=== PATIENT | male | born 1950 | race Caucasian/White ===

== ENCOUNTER 2017-11-02 09:07 | Day surgery (SDC) | payer OTHER ==
[2017-11-01 15:56] LABS: Absolute Monocytes 0.6 K/uL (0.1-1.3); Absolute Neutrophil 3.5 K/uL (1.8-8.0); Basophils % 1.7 % (0-1.3); Eosinophils % 6.1 % (0-4.4); Hematocrit 30.8 % (39.6-49.0); Lymphocytes % 18.5 % (15.3-44.8); MCH 27.9 pg (27.0-35.0); MCV 83.6 fL (80-100); MPV 7.8 fL (7.6-11.3); Monocytes % 10.8 % (3.3-12.3); RBC Red Blood Cell Count 3.68 M/uL (4.33-5.43)
[2017-11-01 16:23] LABS: Potassium 4.6 mmol/L (3.5-5.1)
[2017-11-02] MEDS ORDERED: NA CHLORIDE 0.9% 500 ML ONE (09:26)
[2017-11-02] MEDS ORDERED: CEFAZOLIN/SWI 1gm 1 GM/10 ML SYR ONE (09:27)
[2017-11-02] MEDS ORDERED: NS 0.9% VIAL 10 ML ONE (09:45)
[2017-11-02] MEDS ORDERED: LIDOCAINE 1% MPF 5 ML VIAL ONE ×2 (09:46→09:48)
[2017-11-02] MEDS ORDERED: HEPARIN 5000 UNIT/ML 1 ML VIAL ONE (09:46)
[2017-11-02] MEDS ORDERED: NA CHLORIDE 0.9% 100 ML IV ONE (09:46)
[2017-11-02] MEDS ORDERED: FENTANYL CITR 100 MCG/2 ML ONE (09:48)
[2017-11-02] MEDS ORDERED: PROPOFOL 200 MG/20 ML VIAL IV ONE (09:48)
[2017-11-02] MEDS ORDERED: MIDAZOLAM HCL 2 MG/2 ML INJ ONE (09:48)
[2017-11-02] MEDS ORDERED: LABETALOL 20 MG/4ML SYRINGE IV ONE (10:12)
[2017-11-02] MEDS ORDERED: ONDANSETRON HCL 40 MG/20 ML VIAL ONE (10:43)
--- NOTE | 2017-11-02 11:39 | RAD REPORT ---
EXAM DESCRIPTION: RAD - Fluoroscopy <1 Hour - 11/02/2017 11:29 am CLINICAL HISTORY: Right-side Tessio catheter placement COMPARISON: None. FINDINGS: Fluoroscopic assisted placement of a right-sided Tessio catheter performed. There were 3 s pot images submitted. Fluoro time was 0.1 minutes. C-arm view show no suspicious or unexpected findin g. IMPRESSION: Fluoroscopic assisted right-side Tessio catheter placement as detailed.
--- NOTE | 2017-11-02 11:40 | RAD REPORT ---
EXAM DESCRIPTION: RAD - Chest Single View - 11/02/2017 11:30 am CLINICAL HISTORY: Right-side Tessio catheter placement COMPARISON: October 29 TECHNIQUE: AP portable chest image was obtained 1117 hours . FINDINGS: Right-sided Tessio catheter placement showing short arm of the catheter in the proximal SV C in the long arm of the catheter in the mid SVC. No pneumothorax. No edema, infiltrate or acute lung parenchymal process. Left base assessment is limi carmelo. Heart size is normal. No pleural fluid identified. Delete select IMPRESSION: Right-sided Tessio catheter placement in good position. No pneumothorax.
[2017-11-02] MEDS ORDERED: HYDROCODONE/APAP 7.5/325 MG TAB ONE (12:28)
[2017-11-02 14:08] VITALS: BP 177/85; TEMP 98.2; O2SAT 98
--- NOTE | 2017-11-02 19:03 | OP ---
Date of Procedure: 11/02/2017 Surgeon: Toro Gutierrez MD Preoperative Diagnosis: Acute renal failure. Postoperative Diagnosis: Acute renal failure. Procedure: Insertion of right internal jugular Tesio catheter and interpretation of intraoperative f luoroscopy. Estimated Blood Loss: Minimal. Specimen: None. Findings: Normal anatomy. Anesthesia: MAC. Complications: None. Disposition: The patient tolerated the procedure in stable condition and taken to Recovery in good g eneral condition. Procedure In Detail: The patient was brought to the OR and placed in supine position. MAC anesthesi a was begun. The patient was prepped and draped in the usual sterile fashion. Lidocaine 1% was infi ltrated locally. An 18-gauge needle was used to access the right IJ vein. Guidewire was passed. Po sition was confirmed with fluoroscopy. A counterincision was made on the right anterior chest. Tunn eling device was used to tunnel the catheter between the 2 wounds. Seldinger technique used. Tip of the catheter placed in the mid SVC under fluoroscopy. Catheter was flushed with heparin and packed with heparin with good blood flow. Then, 3-0 chromic used to reapproximate the subcutaneous tissue a nd then 3-0 nylon used to secure the tube to the chest wall. Sterile dressing was applied. The nickie ent was awakened and taken to Recovery in good general condition. Chest x-ray has been ordered. Discharge Note: If the chest x-ray is okay, the patient will be discharged to home. Disposition: Home. Condition: Stable. Discharge Instructions: Resume home medications and diet. Activity as tolerated. Follow up with he modialysis. Tylenol No.3 one tablet p.o. q.4 p.r.n. pain. Follow up in my office when the patient r tona to have the catheter removed once he has a permanent access for dialysis. /MODL Voice ID: [id number] Report ID: [id number]
== END 2017-11-02 13:31 | disposition home or self-care (01) ==
LOC: OR 09:07
PROVIDERS: ATTEND Surgery
PROC: 0JH63XZ Insertion of Tunneled Vascular Access Device into Chest Subcutaneous Tissue and Fascia, Percutaneous Approach (ICD-10-PCS; principal; 2017-11-02 10:45)
DX: I12.0 Hypertensive chronic kidney disease with stage 5 chronic kidney disease or end stage renal disease (principal); N18.5 Chronic kidney disease, stage 5; N17.9 Acute kidney failure, unspecified; E11.22 Type 2 diabetes mellitus with diabetic chronic kidney disease; D64.9 Anemia, unspecified; Z99.2 Dependence on renal dialysis; Z88.6 Allergy status to analgesic agent; Z79.4 Long term (current) use of insulin; Z88.3 Allergy status to other anti-infective agents; Z88.0 Allergy status to penicillin
CPT/HCPCS: 00532; 36415; 36558; 71045; 77001; 80048; 82962 ×2; 85025; C1752; J0690; J1644; J2250; J2405; J3010; 76000

== ENCOUNTER 2019-02-13 17:46 | Emergency (ER) | payer OTHER ==
--- NOTE | 2019-02-13 19:42 | EDPHYS ---
Physician Documentation [facility] Name: Eyal Reynaga Age: 68 yrs Sex: Male : 1950 Arrival Date: 02/13/2019 Time: 17:51 Bed 14 Private MD: ED Physician Lupillo Gomes HPI: 02/13 19:30 This 68 yrs old Male presents to ER via Ambulatory with complaints of Abscess.wa 19:30 The patient presents with cellulitis of the chin, the patient presents with a swollen wa area of the chin. Description: The affected area is moderate sized, localized, erythematous, swollen. Onset: The symptoms/episode began/occurred 3 day(s) ago. Possible cause(s): unknown. Associated signs and symptoms: The patient has no apparent associated signs or symptoms. Modifying factors: the symptoms are alleviated by nothing, the symptoms are aggravated by nothing. Severity of symptoms: At their worst the symptoms were moderate, in the emergency department the symptoms are unchanged. The patient has not experienced similar symptoms in the past. The patient has not recently seen a physician. states saw what appeared to be a pimple on the chin. squeezed and got stuff out but now swollen and pain ful. Historical: - Allergies: 18:02 PENICILLINS; aj1 18:02 Morphine; aj1 18:02 Clindamycin; aj1 - Home Meds: 18:02 omeprazole 40 mg Oral cpDR 1 cap once daily [Active]; levothyroxine 112 mcg tab 1 tab aj1 once daily [Active]; calcium acetate 667 mg oral tab 2 tabs 3 times per day [Active]; hydralazine 25 mg Oral tab 1 tab twice daily [Active]; metoprolol tartrate 25 mg Oral tab 1 tab 2 times per day [Active]; bumetanide 2 mg Oral tab 1 tab 2 times per day [Active]; metolazone 5 mg oral tab 1 tab twice daily [Active]; metronidazole 375 mg Oral cap 1 cap three times per day [Active]; loperamide 2 mg Oral cap 2 caps [Active]; aspirin 81 mg Oral chew 1 tab once daily [Active]; Vitamin D3 2,000 unit oral tab daily [Active]; Novolog sliding scale Sub-Q soln [Active]; Levemir sliding scale subcutaneous soln [Active]; - PMHx: 18:02 Diabetes - NIDDM; Dialysis; Hypertension; Hypothyroidism; neuropathy; walks with walker;aj1 - Immunization history:: Flu vaccine is up to date. - Social history:: Smoking status: Patient/guardian denies using tobacco. - Ebola Screening: : Patient denies travel to an Ebola-affected area in the 21 days before illness onset. - Family history:: not pertinent. - Hospitalizations: : No recent hospitalization is reported. ROS: 19:32 Constitutional: Negative for fever, chills, and weight loss, Eyes: Negative for injury, wa pain, redness, and discharge, Neck: Negative for injury, pain, and swelling, Cardiovascular: Negative for chest pain, palpitations, and edema, Respiratory: Negative for shortness of breath, cough, wheezing, and pleuritic chest pain, Abdomen/GI: Negative for abdominal pain, nausea, vomiting, diarrhea, and constipation, Back: Negative for injury and pain, : Negative for injury, bleeding, discharge, and swelling, MS/Extremity: Negative for injury and deformity, Neuro: Negative for headache, weakness, numbness, tingling, and seizure, Psych: Negative for depression, anxiety, suicide ideation, homicidal ideation, and hallucinations. 19:32 ENT: Positive for Teeth pain 19:32 Skin: Positive for cellulitis, swelling, of the chin. 19:32 All other systems are negative. Exam: 19:35 Constitutional: This is a well developed, well nourished patient who is awake, alert, wa and in no acute distress. Head/Face: Normocephalic, atraumatic. Eyes: Pupils equal round and reactive to light, extra-ocular motions intact. Lids and lashes normal. Conjunctiva and sclera are non-icteric and not injected. Cornea within normal limits. Periorbital areas with no swelling, redness, or edema. Neck: Trachea midline, no thyromegaly or masses palpated, and no cervical lymphadenopathy. Supple, full range of motion without nuchal rigidity, or vertebral point tenderness. No Meningismus. Chest/axilla: Normal chest wall appearance and motion. Nontender with no deformity. No lesions are appreciated. Cardiovascular: Regular rate and rhythm with a normal S1 and S2. No gallops, murmurs, or rubs. Normal PMI, no JVD. No pulse deficits. Respiratory: Lungs have equal breath sounds bilaterally, clear to auscultation and percussion. No rales, rhonchi or wheezes noted. No increased work of breathing, no retractions or nasal flaring. Abdomen/GI: Soft, non-tender, with normal bowel sounds. No distension or tympany. No guarding or rebound. No evidence of tenderness throughout. Back: No spinal tenderness. No costovertebral tenderness. Full range of motion. MS/ Extremity: Pulses equal, no cyanosis. Neurovascular intact. Full, normal range of motion. Neuro: Awake and alert, GCS 15, oriented to person, place, time, and situation. Cranial nerves II-XII grossly intact. Motor strength 5/5 in all extremities. Sensory grossly intact. Cerebellar exam normal. Normal gait. Psych: Awake, alert, with orientation to person, place and time. Behavior, mood, and affect are within normal limits. 19:35 ENT: Dental exam: poor dentition. no abscess. diffuse dental caries. 19:35 Skin: cellulitis, that is moderate, on the chin. Vital Signs: 18:02 BP 178 / 84; Pulse 100; Resp 18; Temp 98.4; Pulse Ox 99% on R/A; Weight 102.06 kg (R); aj1 Height 6 ft. 1 in. (185.42 cm) (R); 19:26 BP 185 / 105; Pulse 96; Resp 19; Pulse Ox 96% ; ea 19:30 BP 180 / 87; Pulse 97; Resp 19; Pulse Ox 97% on R/A; ea 18:02 Body Mass Index 29.68 (102.06 kg, 185.42 cm) aj MDM: 19:19 Patient medically screened. ks 19:37 Differential diagnosis: abscess, cellulitis, dental pain. caries. Data reviewed: vital ks signs, nurses notes. Administered Medications: 19:59 Drug: [place] 5 mg-325 mg 1 tabs Route: PO; ea 20:01 Follow up: Response: Medication administered at discharge. Disposition: 02/13/19 19:41 Discharged to Home. Impression: facial cellulitis, dental pain, dental caries. - Condition is Stable. - Discharge Instructions: Cellulitis, Adult, [id number], Dental Caries, [id number]. - Prescriptions for Doxycycline Hyclate 100 mg Oral Tablet - take 1 tablet by ORAL route every 12 hours for 7 days; 14 tablet. - Medication Reconciliation Form, Thank You Letter, Antibiotic Education, Prescription Opioid Use form. - Follow up: Private Physician; When: 1 - 2 days. - Problem is new. - Symptoms are unchanged. - Notes: follow up with your primary docotr and your dentist as discussed Signatures: Barb Weeks RN RN aj1 Samantha Leo RN RN ea Lupillo Gomes MD MD wa Corrections: (The following items were deleted from the chart) 20:05 19:41 02/13/2019 19:41 Discharged to Home. Impression: facial cellulitis; dental pain; ea dental caries. Condition is Stable. Forms are Medication Reconciliation Form, Thank You Letter, Antibiotic Education, Prescription Opioid Use. Follow up: Private Physician; When: 1 - 2 days. Problem is new. Symptoms are unchanged. wa
--- NOTE | 2019-02-13 19:42 | ER ---
Nurse's Notes [facility] Name: Eyal Reynaga Age: 68 yrs Sex: Male : 1950 Arrival Date: 02/13/2019 Time: 17:51 Bed 14 Private MD: Diagnosis: facial cellulitis;dental pain;dental caries Presentation: 02/13 17:56 Presenting complaint: Patient states: "I have a problem with my teeth. I have bad teeth aj1 and I think one of them might be infected, I have all this swelling in my neck and now its red, and I have this spot on my chin that pus has come out of" Denies fever. Transition of care: patient was not received from another setting of care. Onset of symptoms was February 13, 2019. Risk Assessment: Do you want to hurt yourself or someone else? Patient reports no desire to harm self or others. Initial Sepsis Screen: Does the patient meet any 2 criteria? HR > 90 bpm. No. Patient's initial sepsis screen is negative. Does the patient have a suspected source of infection? Yes: Skin breakdown/wound. Care prior to arrival: None. 17:56 Method Of Arrival: Ambulatory aj1 17:56 Acuity: JUANITA 3 aj1 Triage Assessment: 18:02 General: Appears in no apparent distress. uncomfortable, Behavior is calm, cooperative, aj1 appropriate for age. Pain: Complains of pain in neck. Neuro: Level of Consciousness is awake, alert, obeys commands. Cardiovascular: Patient's skin is warm and dry. Respiratory: Airway is patent Respiratory effort is even, unlabored, Respiratory pattern is regular, symmetrical. Historical: - Allergies: 18:02 PENICILLINS; aj1 18:02 Morphine; aj1 18:02 Clindamycin; aj1 - Home Meds: 18:02 omeprazole 40 mg Oral cpDR 1 cap once daily [Active]; levothyroxine 112 mcg tab 1 tab aj1 once daily [Active]; calcium acetate 667 mg oral tab 2 tabs 3 times per day [Active]; hydralazine 25 mg Oral tab 1 tab twice daily [Active]; metoprolol tartrate 25 mg Oral tab 1 tab 2 times per day [Active]; bumetanide 2 mg Oral tab 1 tab 2 times per day [Active]; metolazone 5 mg oral tab 1 tab twice daily [Active]; metronidazole 375 mg Oral cap 1 cap three times per day [Active]; loperamide 2 mg Oral cap 2 caps [Active]; aspirin 81 mg Oral chew 1 tab once daily [Active]; Vitamin D3 2,000 unit oral tab daily [Active]; Novolog sliding scale Sub-Q soln [Active]; Levemir sliding scale subcutaneous soln [Active]; - PMHx: 18:02 Diabetes - NIDDM; Dialysis; Hypertension; Hypothyroidism; neuropathy; walks with walker;aj1 - Immunization history:: Flu vaccine is up to date. - Social history:: Smoking status: Patient/guardian denies using tobacco. - Ebola Screening: : Patient denies travel to an Ebola-affected area in the 21 days before illness onset. - Family history:: not pertinent. - Hospitalizations: : No recent hospitalization is reported. Screenin:10 Abuse screen: Denies threats or abuse. Nutritional screening: No deficits noted. ea Tuberculosis screening: No symptoms or risk factors identified. Fall Risk None identified. Assessment: 19:10 General: Appears in no apparent distress. Behavior is calm, cooperative, appropriate ea for age. Pain: Complains of pain in chin and neck. Neuro: Level of Consciousness is awake, alert, obeys commands, Oriented to person, place, time, situation. Cardiovascular: Patient's skin is warm and dry. Respiratory: Airway is patent Respiratory effort is even, unlabored, Respiratory pattern is regular, symmetrical. Derm: abrasion to chin. 20:01 Reassessment: Patient and/or family updated on plan of care and expected duration. Pain ea level reassessed. Patient is alert, oriented x 3, equal unlabored respirations, skin warm/dry/pink. Discharge instruction given to patient, verbalized the understanding of instruction. Pt left ED ambulatory accompanied by family member. Vital Signs: 18:02 BP 178 / 84; Pulse 100; Resp 18; Temp 98.4; Pulse Ox 99% on R/A; Weight 102.06 kg (R); aj1 Height 6 ft. 1 in. (185.42 cm) (R); 19:26 BP 185 / 105; Pulse 96; Resp 19; Pulse Ox 96% ; ea 19:30 BP 180 / 87; Pulse 97; Resp 19; Pulse Ox 97% on R/A; ea 18:02 Body Mass Index 29.68 (102.06 kg, 185.42 cm) aj1 ED Course: 17:51 Patient arrived in ED. mr 17:57 Triage completed. aj1 18:02 Arm band placed on Patient placed in waiting room, Patient notified of wait time. aj1 19:00 Patient has correct armband on for positive identification. Bed in low position. Call ea light in reach. Adult w/ patient. 19:19 Lupillo Gomes MD is Attending Physician. wa 19:42 Samantha eLo RN is Primary Nurse. ea 20:04 No provider procedures requiring assistance completed. Patient did not have IV access ea during this emergency room visit. Administered Medications: 19:59 Drug: [place] 5 mg-325 mg 1 tabs Route: PO; ea 20:01 Follow up: Response: Medication administered at discharge. ea Outcome: 19:41 Discharge ordered by . wa 20:04 Discharged to home ambulatory, with family. ea 20:04 Condition: stable 20:04 Discharge instructions given to patient, Instructed on discharge instructions, follow up and referral plans. medication usage, Demonstrated understanding of instructions, follow-up care, medications, Prescriptions given X 2. 20:05 Patient left the ED. ea Signatures: Barb Weeks RN RN [facility][1] Domitila Sandhu mr Samantha Leo, Lupillo Corral RN, ea, MD MD wa Corrections: (The following items were deleted from the chart) 18:03 18:02 Arm band placed on Patient placed in an exam room, aj1 aj
[2019-02-13] MEDS ORDERED: HYDROCODONE/APAP 5/325 MG TAB ONE (19:55)
[2019-02-13 21:21] VITALS: TEMP 98.4
[2019-02-13 21:23] VITALS: BP 180/87; O2SAT 97
--- OUTSIDE RECORDS SUMMARY | 2019-02-19 21:48 | XMS REPORT ---
:1950 [facility] Address [address] [place] [address] Dr. Ceballos [address] [place] [id number] Care Team Providers Name Role Phone Unavailable Unavailable Unavailable Problems This patient has no known problems. Allergies, Adverse Reactions, Alerts This patient has no known allergies or adverse reactions. Medications This patient has no known medications. Encounters Start End Encounter Admission Attending Care Care Encounter Date/Time Date/Time Type Type Clinicians Facility Department ID 2019-02-17 Outpatient [facility] [id number] 13:19:48 2019-01-17 2019-01-17 Outpatient [facility] [id number] 09:56:00 09:56:00 2018-08-09 2018-08-09 Outpatient [facility] [id number] 09:28:00 09:28:00 2018-07-06 2018-07-06 Outpatient [facility] [id number] 11:53:00 11:53:00 2018-06-28 2018-06-28 Outpatient [facility] [id number] 10:22:00 10:22:00
== END 2019-02-13 20:05 | disposition home or self-care (01) ==
LOC: ER 17:46
DX: L03.211 Cellulitis of face (principal); K02.9 Dental caries, unspecified; I10 Essential (primary) hypertension; E11.9 Type 2 diabetes mellitus without complications; E03.9 Hypothyroidism, unspecified; Z79.82 Long term (current) use of aspirin; Z79.4 Long term (current) use of insulin; Z99.2 Dependence on renal dialysis; Z88.0 Allergy status to penicillin; Z88.3 Allergy status to other anti-infective agents; Z88.5 Allergy status to narcotic agent
CPT/HCPCS: 99283

== ENCOUNTER 2019-06-15 11:02 | Inpatient (IN) | payer OTHER ==
--- OUTSIDE RECORDS SUMMARY | 2019-06-15 11:04 | XMS REPORT ---
:1950 [facility] [address] [place] [address] Dr. Ceballos [address] [place] [id number] Care Team Providers Name Role Phone Unavailable Unavailable Unavailable Problems This patient has no known problems. Allergies, Adverse Reactions, Alerts This patient has no known allergies or adverse reactions. Medications This patient has no known medications. Encounters Start End Encounter Admission Attending Care Care Encounter Date/Time Date/Time Type Type Clinicians Facility Department ID 2019-04-10 Outpatient [facility] [id number] 08:34:11 2019-03-21 Outpatient [facility] [id number] 11:42:29 2019-02-17 Outpatient [facility] [id number] 13:19:48 2019-03-31 2019-03-31 Outpatient [facility] [id number] 16:50:00 16:50:00 2019-03-31 2019-03-31 Inpatient E [facility] [id number] 19:21:00 14:15:00 2019-01-17 2019-01-17 Outpatient [facility] [id number] 09:56:00 09:56:00 2018-08-09 2018-08-09 Outpatient [facility] [id number] 09:28:00 09:28:00 2018-07-06 2018-07-06 Outpatient [facility] [id number] 11:53:00 11:53:00 2018-06-28 2018-06-28 Outpatient [facility] [id number] 10:22:00 10:22:00
--- NOTE | 2019-06-15 11:49 | RAD REPORT ---
EXAM DESCRIPTION: RAD - Chest Single View - 06/15/2019 11:36 am CLINICAL HISTORY: sob, ams COMPARISON: Chest Single View dated 11/02/2017 TECHNIQUE: AP portable chest image was obtained 06/15/2019 11:36 am . FINDINGS: Lung volumes are low compared to prior imaging. Large bilateral pleural effusions are pres ent with lung base atelectasis. Central vasculature is prominent. Interstitial markings are similar t o slightly worse than comparison. Right-sided double-lumen catheter has been removed since the prior study. Heart and vasculature are normal. No measurable pleural effusion and no pneumothorax. No acute bony abnormality seen. No acute aortic findings suspected. IMPRESSION: Large bilateral pleural effusions with lung base atelectasis. Heart size is normal but there is vascular engorgement. CHF/ volume overload suspected.
[2019-06-15 12:07] LABS: Protime INR 1.19
[2019-06-15 12:08] LABS: Absolute Lymphocytes (CBC) 0.7 K/uL (0.7-4.9); Basophils % 1.3 % (0-1.3); Hematocrit 26.2 % (39.6-49.0); Lymphocytes % 14.5 % (15.3-44.8); MPV 7.8 fL (7.6-11.3); RBC Red Blood Cell Count 3.04 M/uL (4.33-5.43)
[2019-06-15 12:31] LABS: ALT/SGPT 13 U/L (12-78); AST/SGOT 12 U/L (15-37); Albumin 2.1 g/dL (3.4-5.0); Alkaline Phosphatase 69 U/L (45-117); BUN Blood Urea Nitrogen 35 mg/dL (7-18); Bicarbonate 31 mmol/L (21-32); Bilirubin Direct < 0.1 mg/dL (0-0.2); Bilirubin Total 0.3 mg/dL (0.2-1.0); Glucose Level 108 mg/dL (74-106); Magnesium 2.3 mg/dL (1.8-2.4); NT PRO-BNP 16416 pg/mL (<125); Potassium 3.9 mmol/L (3.5-5.1); Protein, Total 7.2 g/dL (6.4-8.2); Sodium Level 140 mmol/L (136-145); Troponin (Emerg Dept Use Only) < 0.02 ng/mL (0.0-0.045)
[2019-06-15 13:12] LABS: Arterial Blood Carboxyhemoglob 1.8 % (0-1.5); Blood Gas Oxyhemoglobin 85.3 % (94-97); Blood O2 Saturation 87.6 % (92-98.5)
--- NOTE | 2019-06-15 13:39 | EDPHYS ---
Physician Documentation [facility] Name: Eyal Reynaga Age: 68 yrs Sex: Male : 1950 Arrival Date: 06/15/2019 Time: 11:07 Bed 18 Private MD: ED Physician Nik Lau HPI: 06/14 11:20 This 68 yrs old Male presents to ER via EMS with complaints of SOB, AMS. jmm 11:20 The patient has shortness of breath at rest. Onset: The symptoms/episode began/occurred jmm yesterday. Duration: The symptoms are continuous. The patient's shortness of breath is aggravated by nothing, is alleviated by nothing. This is a 68 year old male with a history of DM, ESRD, HTN, that presents to the ED with complaints of shortness of breath, hallucinations beginning yesterday according to the . Patient states symptoms have improved. Patient recently discharged from a rehab facility with similar episodes. Patient discharged without home O2. . Historical: - Allergies: 12:13 Clindamycin; ca1 12:13 Morphine; ca1 12:13 PENICILLINS; ca1 - Home Meds: 12:13 carvedilol 25 mg oral tab 1 tab 2 times per day [Active]; Dialyvite 800 Plus D 800 mcg- ca1 2,000 unit oral chew [Active]; 13:06 megestrol 400 mg/10 mL (40 mg/mL) Oral susp 10 mL once daily [Active]; Virtussin AC ca1 10-100 mg/5 mL oral liqd 5 mL every 6 hours [Active]; loperamide 2 mg Oral cap 1 caps every 4 hours [Active]; calcium acetate 667 mg Oral tab 3 tabs 3 times per day [Active]; loratadine 10 mg oral tab 1 tab once daily [Active]; pantoprazole 40 mg oral TbEC 1 tab once daily [Active]; docusate sodium 100 mg Oral cap 1 cap 2 times per day [Active]; aspirin 81 mg Oral chew 1 tab once daily [Active]; levothyroxine 112 mcg tab 1 tab once daily [Active]; tramadol 50 mg Oral tab 1 tab twice a day [Active]; losartan 50 mg oral tab 1 tab 2 times per day [Active]; hydrochlorothiazide 25 mg Oral tab 1 tab once daily [Active]; sertraline 50 mg oral tab 1 tab once daily [Active]; nifedipine 60 mg Oral TbER 1 tab twice a day [Active]; Levemir sliding scale subcutaneous soln [Active]; Novolin R Sub-Q [Active]; - PMHx: 12:13 Diabetes - NIDDM; Dialysis; Hypertension; Hypothyroidism; neuropathy; walks with walker;ca1 - Immunization history:: Adult Immunizations up to date, Pneumococcal vaccine is up to date, Flu vaccine is up to date. - Social history:: Smoking status: Patient denies any tobacco usage or history of. ROS: 11:20 Constitutional: Negative for fever, chills, and weight loss, Cardiovascular: Negative jmm for chest pain, palpitations, and edema. 11:20 Respiratory: Positive for shortness of breath. 11:20 Neuro: Positive for altered mental status. 11:20 All other systems are negative. Exam: 11:20 Constitutional: This is a well developed, well nourished patient who is awake, alert, jmm and in no acute distress. Head/Face: atraumatic. Eyes: EOMI, no conjunctival erythema appreciated ENT: Moist Mucus Membranes Neck: Trachea midline, Supple Chest/axilla: Normal chest wall appearance and motion. Cardiovascular: Regular rate and rhythm. No edema appreciated 11:20 Abdomen/GI: Non distended, soft 11:20 Back: Normal ROM Skin: General appearance color normal MS/ Extremity: Moves all extremities, no obvious deformities appreciated, no edema noted to the lower extremities Neuro: Awake and alert, normal gait Psych: Behavior is normal, Mood is normal, Patient is cooperative and pleasant 11:20 Respiratory: mild respiratory distress is noted, Respirations: labored breathing, that is mild, Breath sounds: are clear throughout. Vital Signs: 11:16 BP 141 / 68; Pulse 67; Resp 14 S; Temp 97.1(TE); Pulse Ox 93% on R/A; Weight 99.79 kg ca1 (R); Height 6 ft. 1 in. (185.42 cm) (R); Pain 0/10; 12:13 BP 133 / 55; Pulse 81; Resp 16 S; Pulse Ox 91% on R/A; ca1 13:27 BP 139 / 79; Pulse 66; Resp 21 S; Pulse Ox 97% on 2 lpm NC; ca1 14:11 BP 130 / 66; Pulse 65; Resp 14 S; Pulse Ox 97% on 2 lpm NC; ca1 11:16 Body Mass Index 29.03 (99.79 kg, 185.42 cm) ca1 MDM: 11:34 Patient medically screened. [facility] 13:35 Data reviewed: vital signs, nurses notes. Counseling: I had a detailed discussion with nataliya the patient and/or guardian regarding: the historical points, exam findings, and any diagnostic results supporting the discharge/admit diagnosis, lab results, radiology results, the need for outpatient follow up, to return to the emergency department if symptoms worsen or persist or if there are any questions or concerns that arise at home. ED course: I discussed the patient with Dr. Salguero whom advises to admit for dialysis. I discussed the patient with Dr. Oneil whom accepted admission. . 06/14 11:20 Order name: Basic Metabolic Panel; Complete Time: 12:45 [facility] 06/14 11:20 Order name: CBC with Diff; Complete Time: 12:45 [facility] 06/14 11:20 Order name: LFT's; Complete Time: 12:45 [facility] 06/14 11:20 Order name: Magnesium; Complete Time: 12:45 [facility] 06/14 11:20 Order name: NT PRO-BNP; Complete Time: 12:45 [facility] 06/14 11:20 Order name: PT-INR; Complete Time: 12:45 [facility] 06/14 11:20 Order name: Troponin (emerg Dept Use Only); Complete Time: 12:45 [facility] 06/14 11:20 Order name: XRAY Chest (1 view); Complete Time: 12:02 [facility] 06/14 11:44 Order name: ABG; Complete Time: 13:21 [facility] 06/14 13:25 Order name: CT Head Brain wo Cont; Complete Time: 14:28 [facility] 06/14 13:25 Order name: Procalcitonin; Complete Time: 14:28 [facility] 06/14 13:25 Order name: Lactate; Complete Time: 14:28 [facility] 06/14 13:27 Order name: Urine Culture [facility] 06/14 14:14 Order name: Urine Dipstick--Ancillary (enter results) em1 06/14 11:20 Order name: EKG; Complete Time: 11:21 [facility] 06/14 11:20 Order name: Cardiac monitoring; Complete Time: 12:21 [facility] 06/14 11:20 Order name: EKG - Nurse/Tech; Complete Time: 12:22 [facility] 06/14 11:20 Order name: IV Saline Lock; Complete Time: 12:22 [facility] 06/14 11:20 Order name: Labs collected and sent; Complete Time: 12:22 [facility] 06/14 11:20 Order name: O2 Per Protocol; Complete Time: 12:22 [facility] 06/14 11:20 Order name: O2 Sat Monitoring; Complete Time: 12:22 [facility] 06/14 13:26 Order name: Urine Dipstick-Ancillary (obtain specimen); Complete Time: 13:58 [facility] Administered Medications: No medications were administered Disposition: 17:17 Co-signature as Attending Physician, Nik Lau MD I agree with the assessment and kdr plan of care. Disposition: 06/15/19 13:38 Hospitalization ordered by Sherif Oneil for Observation. Preliminary diagnosis are Hypoxia, Volume Overload. - Bed requested for Telemetry/MedSurg (observation). - Status is Observation. ca1 - Condition is Stable. - Problem is new. - Symptoms have improved. Signatures: Dispatcher [employer] EDMS Nik Lau MD MD kdr Ranulfo Rubio PA PA jmm Martinez, Eric em1 Ciara Samayoa RN RN ca1 Corrections: (The following items were deleted from the chart) 14:13 13:38 Hospitalization Ordered by Sherif Oneil DO for Observation. Preliminary em1 diagnosis is Hypoxia; Volume Overload. Bed requested for Telemetry/MedSurg (observation). Status is Observation. Condition is Stable. Problem is new. Symptoms have improved. [facility] 14:50 14:13 06/15/2019 13:38 Hospitalization Ordered by Sherif Oneil DO for Observation. ca1 Preliminary diagnosis is Hypoxia; Volume Overload. Bed requested for Telemetry/MedSurg (observation). Status is Observation. Condition is Stable. Problem is new. Symptoms have improved. em1 16:30 16:27 This 68 yrs old Male presents to ER via EMS with complaints of SOB, jmm AMS. jmm
--- NOTE | 2019-06-15 13:39 | ER ---
Nurse's Notes [facility] Name: Eyal Reynaga Age: 68 yrs Sex: Male : 1950 Arrival Date: 06/15/2019 Time: 11:07 Bed 18 Private MD: Diagnosis: Hypoxia;Volume Overload Presentation: 06/14 11:16 Chief complaint: EMS states: SOB and AMS since yesterday. states, "he said he is ca1 seeing squirrels in the ceiling fan". When we got there, pt is Ox4 and complains of feeling tired and lethargic. SPO2 at 89% RA. He has O2 set up but hasn't used it yet. Pt is on dialysis at home with schedule Jay Carbone Hx of MRSA on back. Coronavirus screen: The patient has NOT traveled to a country currently being monitored by the [facility] within the last 14 days. The patient has NOT had contact with any known and/or suspected case of coronavirus. Ebola Screen: Patient negative for fever greater than or equal to 101.5 degrees Fahrenheit, and additional compatible Ebola Virus Disease symptoms Patient denies exposure to infectious person. Patient denies travel to an Ebola-affected area in the 21 days before illness onset. No symptoms or risks identified at this time. Initial Sepsis Screen: Does the patient meet any 2 criteria? No. Patient's initial sepsis screen is negative. Does the patient have a suspected source of infection? No. Patient's initial sepsis screen is negative. Risk Assessment: Do you want to hurt yourself or someone else? Patient reports no desire to harm self or others. Care prior to arrival: Medication(s) given: Glucose check: 90. 11:16 Method Of Arrival: EMS: [facility] ca1 11:16 Acuity: JUANITA 3 ca1 11:16 Onset of symptoms was June 15, 2019. ca1 Historical: - Allergies: 12:13 Clindamycin; ca1 12:13 Morphine; ca1 12:13 PENICILLINS; ca1 - Home Meds: 12:13 carvedilol 25 mg oral tab 1 tab 2 times per day [Active]; Dialyvite 800 Plus D 800 mcg- ca1 2,000 unit oral chew [Active]; 13:06 megestrol 400 mg/10 mL (40 mg/mL) Oral susp 10 mL once daily [Active]; Virtussin AC ca1 10-100 mg/5 mL oral liqd 5 mL every 6 hours [Active]; loperamide 2 mg Oral cap 1 caps every 4 hours [Active]; calcium acetate 667 mg Oral tab 3 tabs 3 times per day [Active]; loratadine 10 mg oral tab 1 tab once daily [Active]; pantoprazole 40 mg oral TbEC 1 tab once daily [Active]; docusate sodium 100 mg Oral cap 1 cap 2 times per day [Active]; aspirin 81 mg Oral chew 1 tab once daily [Active]; levothyroxine 112 mcg tab 1 tab once daily [Active]; tramadol 50 mg Oral tab 1 tab twice a day [Active]; losartan 50 mg oral tab 1 tab 2 times per day [Active]; hydrochlorothiazide 25 mg Oral tab 1 tab once daily [Active]; sertraline 50 mg oral tab 1 tab once daily [Active]; nifedipine 60 mg Oral TbER 1 tab twice a day [Active]; Levemir sliding scale subcutaneous soln [Active]; Novolin R Sub-Q [Active]; - PMHx: 12:13 Diabetes - NIDDM; Dialysis; Hypertension; Hypothyroidism; neuropathy; walks with walker;ca1 - Immunization history:: Adult Immunizations up to date, Pneumococcal vaccine is up to date, Flu vaccine is up to date. - Social history:: Smoking status: Patient denies any tobacco usage or history of. Screenin:20 Abuse screen: Denies threats or abuse. Denies injuries from another. Nutritional ca1 screening: No deficits noted. Tuberculosis screening: No symptoms or risk factors identified. Fall Risk Fall in past 12 months (25 points). Secondary diagnosis (15 points) impaired mobility, IV access (20 points). Total Jane Fall Scale indicates High Risk Score (45 or more points). Fall prevention measures have been instituted. Side Rails Up X 2 Frequent Obs/Assessments Occuring Family Present and informed to notify staff if the need to leave the bedside As available patient and family educated on Fall Prevention Program and Strategies. Assessment: 11:20 General: Appears in no apparent distress. comfortable, Behavior is calm, cooperative, ca1 appropriate for age. Pain: Denies pain. Neuro: Level of Consciousness is awake, alert, obeys commands, Oriented to person, place, time, situation, Appropriate for age. Cardiovascular: Heart tones S1 S2 present Capillary refill < 3 seconds Patient's skin is warm and dry. Rhythm is sinus rhythm. Cardiovascular: Dialysis shunt: in the left arm, with palpable thrill, with auscultated bruit, with no erythema, with no edema, no bleeding noted. Respiratory: Reports shortness of breath Airway is patent Respiratory effort is even, unlabored, Respiratory pattern is regular, symmetrical, Breath sounds are clear bilaterally. GI: Abdomen is round non-distended, Bowel sounds present X 4 quads. Abd is soft and non tender X 4 quads. : No signs and/or symptoms were reported regarding the genitourinary system. EENT: No signs and/or symptoms were reported regarding the EENT system. Derm: Skin is intact, is healthy with good turgor, Skin is pink, warm \\T\\ dry. Musculoskeletal: Circulation, motion, and sensation intact. Capillary refill < 3 seconds. 12:29 Reassessment: Patient appears in no apparent distress at this time. No changes from ca1 previously documented assessment. Patient and/or family updated on plan of care and expected duration. Pain level reassessed. Patient is alert, oriented x 3, equal unlabored respirations, skin warm/dry/pink. 13:08 Reassessment: Dr. Celaya at bedside. ca1 13:27 Reassessment: Patient appears in no apparent distress at this time. Patient and/or ca1 family updated on plan of care and expected duration. Pain level reassessed. Patient is alert, oriented x 3, equal unlabored respirations, skin warm/dry/pink. 14:10 Reassessment: Patient appears in no apparent distress at this time. Patient and/or ca1 family updated on plan of care and expected duration. Pain level reassessed. Patient is alert, oriented x 3, equal unlabored respirations, skin warm/dry/pink. Dr. Oneil at bedside. 14:20 Reassessment: Called 4th for report. Nurse will call back. ca1 Vital Signs: 11:16 BP 141 / 68; Pulse 67; Resp 14 S; Temp 97.1(TE); Pulse Ox 93% on R/A; Weight 99.79 kg ca1 (R); Height 6 ft. 1 in. (185.42 cm) (R); Pain 0/10; 12:13 BP 133 / 55; Pulse 81; Resp 16 S; Pulse Ox 91% on R/A; ca1 13:27 BP 139 / 79; Pulse 66; Resp 21 S; Pulse Ox 97% on 2 lpm NC; ca1 14:11 BP 130 / 66; Pulse 65; Resp 14 S; Pulse Ox 97% on 2 lpm NC; ca1 11:16 Body Mass Index 29.03 (99.79 kg, 185.42 cm) ca1 ED Course: 11:07 Patient arrived in ED. em1 11:15 Ranulfo Rubio PA is PHCP. m 11:15 Nik Lau MD is Attending Physician. m 11:16 Ciara Samayoa, REUBEN is Primary Nurse. ca1 11:20 Arm band placed on right wrist. ca1 11:20 Patient has correct armband on for positive identification. Placed in gown. Bed in low ca1 position. Call light in reach. Side rails up X2. monitor technician on. Pulse ox on. NIBP on. Warm blanket given. 11:20 No provider procedures requiring assistance completed. Initial lab(s) drawn, by ED ca1 staff, sent to lab. Inserted saline lock: 20 gauge in right antecubital area, using aseptic technique. Blood collected. 11:22 Triage completed. ca1 11:58 XRAY Chest (1 view) In Process Unspecified. EDMS 13:35 Lactate Sent. ca1 13:35 Procalcitonin Sent. ca1 13:37 Sherif Oneil DO is Hospitalizing Provider. jmm 13:48 CT Head Brain wo Cont In Process Unspecified. EDMS 13:58 Straight cath inserted, using sterile technique, 16 Fr. Specimen obtained. Returned ca1 cloudy urine. Patient tolerated well. 14:35 Patient admitted, IV remains in place. ca1 Administered Medications: No medications were administered Outcome: 13:38 Decision to Hospitalize by Provider. jmm 14:35 Admitted to Tele accompanied by tech, family with patient, via stretcher, room 416, ca1 with chart, Report called to REUBEN Stone 14:35 Condition: stable 14:35 Instructed on the need for admit. 14:50 Patient left the ED. ca1 Signatures: Dispatcher [employer] EDMS Ranulfo Rubio PA PA Tor Buchanan em1 Ciara Samayoa, RN RN ca1 Corrections: (The following items were deleted from the chart) 14:12 13:27 BP 139 / 79; Pulse 66bpm; Resp 21bpm; Spontaneous; Pulse Ox 97% RA; ca1 ca1 14:30 11:16 Chief complaint: EMS states: SOB and AMS since yesterday. states, "he said ca1 he is seeing squirrels in the ceiling fan". When we got there, pt is A\\T\\Ox4 and complains of feeling tired and lethargic. SPO2 at 89% RA. He has O2 set up but hasn't used it yet. Pt is on dialysis at home with schedule M.W,F. Hx of MRSA on back ca1
--- NOTE | 2019-06-15 13:47 | RAD REPORT ---
EXAM DESCRIPTION: CT - Head Brain Wo Cont - 06/15/2019 1:40 pm CLINICAL HISTORY: Alteration of awareness/confusion COMPARISON: None TECHNIQUE: Computed axial tomography of the head was obtained. IV contrast was not requested. All CT scans are performed using dose optimization technique as appropriate and may include automated exposure control or mA/KV adjustment according to patient size. FINDINGS: An intracranial bleed is not seen . The ventricles are normal in caliber. No extra-axial fluid collection is noted. Fluid within the sinuses/ mastoids is not seen. IMPRESSION: No acute intracranial abnormality is seen. If patient's symptoms persist MRI of the bra in would be recommended.
[2019-06-15] MEDS ORDERED: ONDANSETRON 4 MG/2 ML VIAL IV PRN (14:58)
[2019-06-15] MEDS ORDERED: ACETAMINOPHEN 500 MG TAB PO PRN (14:58)
[2019-06-15] MEDS ORDERED: VANCOMYCIN/NS 1 gm 1 GM/250 ML BAG IV SCH (15:15)
[2019-06-15] MEDS ORDERED: DAPTOmycin 500 MG in NA CHLORIDE 0.9% 100 ML IVPB ONE (15:30)
[2019-06-15] MEDS: INSULIN -REGULAR HUMAN 50 UNIT/0.5 ML ML SQ SCH ×2 (16:30→21:00)
--- NOTE | 2019-06-15 17:23 | CON ---
Date of Consultation: 06/15/2019 Reason For Consultation: Elevated BUN and creatinine, fluid management, over volume, hypoxemia, end- stage renal disease. History Of Present Illness: This is a pleasant 68-year-old gentleman, well known to me from dialysis with significant past medical history of hypothyroidism; end-stage renal disease, on home hemodialys is Wednesday, Wednesday, Wednesday with the [place] [facility] through left arm AV fistula; hypertension; hyperlipidemia; congestive heart failure; the [facility]acte[facility], septic shock, transferred to LTAC, from LTAC to SNF and discharged. Over the weekend, patient received dialysis yesterday. Patient received daptomycin and vancomycin yesterday. The nickie ent apparently started having some hallucination in the evening and in the morning has hypoxemia. Fo r that reason, brought to the hospital. In the hospital, in the ER, patient hypoxemic down to 90. P atient denied any chest pain. Currently, he is alert, oriented. But still on nasal cannula. Past Medical History: 1.Hypertension. 2.Secondary hyperparathyroid. 3.End-stage renal disease. 4.Congestive heart failure. Allergies: PENICILLIN, MORPHINE, AND CLINDAMYCIN. Home Medications: Include omeprazole, levothyroxine, PhosLo, metoprolol, Bumex, metolazone. Social History: Lives with family. Denies smoking. Denies drinking. Denies drugs abuse. Past Surgical History: AV fistula creation, PermCath placement, and removal. Review of Systems: Head and Neck: No red eye. No ear pain. GI: No nausea. No vomiting. : No polyuria. No dysuria. No hematuria. SCIENCES DEAN: Not applicable. Respiratory: Shortness of breath. Cardiovascular: Leg swelling. Endocrine: No polydipsia. SKIN: No rash. Neuro: Difficulty ambulating. Musculoskeletal: Weakness and fatigue. Physical Examination: Vital Signs: When I saw the patient's blood pressure 110/72, pulse of 88. Chest: Crackles bilateral. Heart: S1, S2. Systolic murmur. Abdomen: Soft, nontender. Extremities: Trace edema. Ulcer on the right big toe. Neurologic: Alert. Weakness on the lower extremity but symmetrical footdrop on the right foot. I c ould not appreciate any other focality. Laboratory Data: Patient's WBC 4.9, H and H of 8.6/26.2, platelet 297. Sodium 140, potassium 3.9, b icarb 35, BUN 31, creatinine 4.1, calcium 8.1. Assessment And Plan: 1.End-stage renal disease, over volume with respiratory distress. I am going for the patient sequen tial of dialysis today, then we will do another session of dialysis tomorrow. 2.Hypertension, currently blood pressure on the lower side. Hold all blood pressure medication. 3.Bacteremia. Continue daptomycin and vancomycin. 4.Anemia of chronic kidney disease. Continue DERREK. 5.Diabetes, as by primary. 6.Coronary artery disease, congestive heart failure. We will try to optimize fluid status. KWADWO/MARY Voice ID: [id number] Report ID: [id number]
[2019-06-15 17:36] VITALS: BMI 29.0
--- NOTE | 2019-06-15 21:26 | P.HP ---
Certification for Inpatient Patient admitted to: Inpatient With expected LOS: >2 Midnights Practitioner: I am a practitioner with admitting privileges, knowledge of patient current condition, hospital course, and medical plan of care. Services: Services provided to patient in accordance with Admission requirements found in Title 42 Section 412.3 of the Code of Federal Regulations Patient History Date of Service: 06/15/19 Reason for admission: CONFUSION History of Present Illness: Mr. Reynaga is a CKD5 patient on hemodialysis. He was recently in some [facility] for sepsis from infected fistula, then to LTAC and back home now. On the weekend he got more confused and was hallucinating. He was brought today. First the ER PA called in hospitalists eventhough he is my patient. Dr. Oneil asked me to take care of him. I saw patient at about 6 pm while he was in HD. He was not able to tell me exactly what happened and seemed not to comprehend about his history. He was able to wake up and recognize me. He was able to tell me his 's name. He is curretnly on Daptomycin and vancomycin at HD. I was not aware of all his hospital stays until today. Dr. Claire's note is the source of history as is not available for now. Allergies clindamycin Allergy (Verified 11/01/17 15:15) rash, fever, diaphoresis morphine Allergy (Verified 11/01/17 15:15) Nausea/Vomiting Penicillins Allergy (Verified 11/01/17 15:15) Rash Home Medications: Aspirin Chewable [Aspirin Chewable*] 81 mg PO DAILY 11/01/17 Levothyroxine [Synthroid] 112 mcg PO [id number] 11/01/17 Calcium Acetate 3 tab PO TID 06/15/19 Carvedilol [Coreg] 1 tab PO DAILY 06/15/19 Codeine Phosphate/Guaifenesin [Virtussin AC 10-100 mg/5 ml Lq] 5 ml PO DAILY PRN 06/15/19 Docusate Sodium 100 mg PO BID 06/15/19 Insulin Glargine Human [Lantus] 15 unit SQ DAILY 06/15/19 Loperamide [Imodium*] 2 mg PO Q6H 06/15/19 Loratadine [Claritin*] 1 tab PO BEDTIME 06/15/19 Losartan Potassium 50 mg PO Q12H 06/15/19 Megestrol Acetate 5 ml PO DAILY 06/15/19 NIFEdipine [Nifedipine ER] 1 tab PO BID 06/15/19 Pantoprazole [Protonix Tab] 40 mg PO DAILY 06/15/19 Sertraline [Zoloft*] 50 mg pe PO DAILY 06/15/19 Tramadol HCl [Ultram] 50 mg PO Q12H PRN 06/15/19 Trazodone [Desyrel*] 50 mg PO BEDTIME 06/15/19 Vit B Comp C/Folic Acid/Vit D3 [Dialyvite 800 Plus D Wafer] 1 tab PO 1X hydroCHLOROthiazide [Hydrodiuril*] 1 tab PO DAILY 06/15/19 - Past Medical/Surgical History Has patient received pneumonia vaccine in the past: Yes Diabetic: Yes -: ESRD w/HD MWF -: HTN -: hyperlipidemia -: hypothyroidism -: neurapathy -: DM -: Mrsa 03/2020 subclavion port and blood -: subclavion port and removal -: Left upper arm fistula - Social History Smoking Status: Never smoker Alcohol use: No CD- Drugs: No Caffeine use: Yes Place of Residence: Home Review of Systems is unable to be obtained Physical Examination - Vital Signs Temperature: 97.1 F Blood Pressure: 130/66 Pulse: 65 Respirations: 14 - Physical Exam General: Alert, Mild distress, Confused HEENT: Atraumatic, PERRLA, Mucous membr. moist/pink, EOMI, Sclerae nonicteric Neck: Supple, 2+ carotid pulse no bruit, No LAD, Without JVD or thyroid abnormality Respiratory: Clear to auscultation bilaterally, Normal air movement Cardiovascular: Regular rate/rhythm, Normal S1 S2 Gastrointestinal: Normal bowel sounds, No tenderness Musculoskeletal: No tenderness Integumentary: No rashes Neurological: Normal gait, Normal speech, Normal strength at 5/5 x4 extr, Normal tone, Normal affect Lymphatics: No axilla or inguinal lymphadenopathy - Studies Laboratory Data (last 24 hrs) 06/15/19 11:42: PT 14.0 H, INR 1.19 06/15/19 11:42: WBC 4.9, Hgb 8.6 L, Hct 26.2 L, Plt Count 297 06/15/19 11:42: Sodium 140, Potassium 3.9, BUN 35 H, Creatinine 4.17 H, Glucose 108 H, Magnesium 2.3, Total Bilirubin 0.3, AST 12 L, ALT 13, Alkaline Phosphatase 69 Assessment and Plan - Problems (Diagnosis) (1) CHF (congestive heart failure) Current Visit: Yes Status: Acute Plan: fluid overload from need of HD. Unclear why he decompensated. It can be from sepsis itself. Qualifiers: Heart failure type: diastolic Heart failure chronicity: acute Qualified Code(s): I50.31 - Acute diastolic (congestive) heart failure (2) Encephalopathy Current Visit: Yes Status: Acute Plan: from hypoxia, from CHF. will order MRI stroke protocol in am. CT is negative. (3) CKD (chronic kidney disease) stage 5, GFR less than 15 ml/min Current Visit: Yes Status: Chronic (4) Sepsis associated with vascular access catheter Current Visit: Yes Status: Suspected Plan: This is going on for a while. He still has high procalcitonin. Reeval for source of infection. Qualifiers: Encounter type: initial encounter Qualified Code(s): T82.7XXA - Infection and inflammatory reaction due to other cardiac and vascular devices, implants and grafts, initial encounter; A41.9 - Sepsis, unspecified organism - Advance Directives Does patient have a Living Will: No Does patient have a Durable POA for Healthcare: No
[2019-06-15] MEDS: HEPARIN 5000 UNIT/ML 1 ML VIAL SQ SCH (21:44)
[2019-06-15 22:12] LABS: MPV 7.8 fL (7.6-11.3)
[2019-06-15 22:24] LABS: Platelet Estimate ND
[2019-06-15] MEDS ORDERED: VANCOMYCIN 1 GM in NA CHLORIDE 0.9% 250 ML IVPB SCH (23:00)
[2019-06-15] MEDS ORDERED: VANCOMYCIN 1 GM in NA CHLORIDE 0.9% 250 ML IVPB ONE (23:00)
[2019-06-15] MEDS ORDERED: VANCOMYCIN 1 GM/VIAL ONE (23:16)
[2019-06-15] MEDS ORDERED: NA CHLORIDE 0.9% 250 ML ONE (23:17)
[2019-06-16] MEDS: HYDRALAZINE HCL 20 MG/ML VIAL IV PRN ×4 (00:54→18:00)
[2019-06-16] MEDS: LORazepam 2 MG/ML VIAL IV PRN ×2 (02:34→11:18)
[2019-06-16] MEDS: LEVOTHYROXINE SOD 0.112 MG TAB PO SCH (05:10)
[2019-06-16 06:12] LABS: Absolute Lymphocytes (CBC) 0.7 K/uL (0.7-4.9); Basophils % 2.2 % (0-1.3); Hematocrit 25.3 % (39.6-49.0); Lymphocytes % 20.5 % (15.3-44.8); MPV 8.1 fL (7.6-11.3); RBC Red Blood Cell Count 2.98 M/uL (4.33-5.43)
[2019-06-16 06:23] LABS: Magnesium 2.2 mg/dL (1.8-2.4); Potassium 3.3 mmol/L (3.5-5.1)
[2019-06-16] MEDS: CA ACETATE 667 MG CAP PO SCH ×3 (07:28→17:42)
[2019-06-16] MEDS: carvediloL 25 MG TAB PO SCH (07:29)
[2019-06-16] MEDS: HEPARIN 5000 UNIT/ML 1 ML VIAL SQ SCH ×2 (07:30→23:01)
[2019-06-16] MEDS: ASPIRIN 81 MG CHEWABLE TABLET PO SCH (07:30)
[2019-06-16] MEDS: INSULIN -REGULAR HUMAN 50 UNIT/0.5 ML ML SQ SCH ×4 (07:30→21:00)
[2019-06-16] MEDS: SERTRALINE HCL 50 MG TAB PO SCH (07:30)
[2019-06-16] MEDS ORDERED: VANCOMYCIN/NS 1 gm 1 GM/250 ML BAG IV SCH (08:00)
--- NOTE | 2019-06-16 08:29 | RAD REPORT ---
EXAM DESCRIPTION: Jacob Single View06/16/2019 5:48 am CLINICAL HISTORY: Chest pain COMPARISON: June 15, 2019 FINDINGS: The mid and lower hemithoraces are hazy. Upper lobes are clear. Heart is normal size IMPRESSION: Mid and lower hemithoraces are hazy likely represent a combination of moderate pleural e ffusions and atelectasis. Mild pulmonary edema or pneumonia suspected. There has been minimal improvement since prior exam This should be followed until it is clear to help exclude post obstructive process/underlying mass
[2019-06-16] MEDS ORDERED: VANCOMYCIN 1 GM in NA CHLORIDE 0.9% 500 ML IVPB SCH (09:00)
[2019-06-16] MEDS ORDERED: LORazepam 2 MG/ML VIAL IV ONE (09:00)
[2019-06-16] MEDS ORDERED: ENOXAPARIN 40 MG/0.4 ML SQ SCH (09:00)
--- NOTE | 2019-06-16 11:24 | P.PN ---
Subjective Date of Service: 06/16/19 Chief Complaint: CONFUSION Subjective A 68-year-old gentleman, with listed PMHx pt presneted with AMS and hypoxia found to have B/l pleural effusion Today still confused will do dialysis today and tomorrow monitor vanco and CPK levels renal dose emds will start on Hydralaizne Past Medical History: 1. Hypertension. 2. Secondary hyperparathyroid. 3. End-stage renal disease. 4. Congestive heart failure. Allergies: PENICILLIN, MORPHINE, AND CLINDAMYCIN. Social History: Lives with family. Denies smoking. Denies drinking. Denies drugs abuse. Past Surgical History: AV fistula creation, PermCath placement, and removal. general: confused Neck; Supple, No elevated JVD hear: RRR, normal S1,2 no murmur or rub Chest: decreased air entry B/l no rales or wheezes Abdomen: Soft , Nt Extremities No edema or ulcer Assessment And Plan: End-stage renal disease HD today and tomorrow renal dose meds monitor vanco and CPK levels Anemia of chronic disease will sned for W/U will start epogen bacteremia cont Vanco and dapto monitor vanco and CPK levels Diabetes, as by primary. HTN will add hydaralzine Fluid overload HD today and tomorrow Physical Examination - Vital Signs Temperature: 97.8 F Blood Pressure: 163/82 Pulse: 76 Respirations: 18 Pulse Ox (%): 94 - Studies Laboratory Data (last 24 hrs) 06/15/19 11:42: PT 14.0 H, INR 1.19 06/15/19 11:42: WBC 4.9, Hgb 8.6 L, Hct 26.2 L, Plt Count 297 06/15/19 11:42: Sodium 140, Potassium 3.9, BUN 35 H, Creatinine 4.17 H, Glucose 108 H, Magnesium 2.3, Total Bilirubin 0.3, AST 12 L, ALT 13, Alkaline Phosphatase 69
[2019-06-16] MEDS ORDERED: EPOETIN 4,000 UNIT/ML VIAL IV SCH (11:30)
--- NOTE | 2019-06-16 12:52 | RAD REPORT ---
EXAM DESCRIPTION: MRI - Brain Wo Cont - 06/16/2019 12:22 pm CLINICAL HISTORY: CVA Headache, drowsiness COMPARISON: Head Brain Wo Cont dated 06/15/2019 TECHNIQUE: Multi-sequence, multiplanar MR imaging of the brain was performed without contrast. FINDINGS: Moderate motion degraded study submitted. No gross evidence of intracranial hemorrhage, hydrocephalus or extra-axial fluid collections. No raymond s shift of midline structures. No gross evidence of acute CVA. Mastoid air cells and paranasal sinuses are clear. IMPRESSION: Motion limited examination is submitted, no gross evidence of acute CVA or other acute i ntracranial abnormality.
--- NOTE | 2019-06-16 13:47 | EKG ---
Test Date: 2019-06-15 Test Time: 11:56:01 Impregnator Operator: EDILSON MEASUREMENT RESULTS: Intervals: Rate: 67 [place]: 206 QRSD: 106 QT: 434 QTc: 458 [place]: P: 51 [place]: 206 QRS: -38 T: 7 INTERPRETIVE STATEMENTS: Sinus rhythm with premature atrial complexes Left axis deviation Anterior infarct, age undetermined Abnormal ECG Compared to ECG 06/20/2007 11:31:58 Atrial premature complex(es) now present Left-axis deviation now present Myocardial infarct finding now present T-wave abnormality no longer present Electronically Signed On 06-16-19 13:46:43 DIRECTOR OF ARCHITECTURE by Artur Strickland
[2019-06-16] MEDS: HYDRALAZINE HCL 25 MG TABLET PO SCH ×2 (14:00→23:01)
[2019-06-16] MEDS: NA CHLORIDE 0.9% IVPB SCH (18:27)
[2019-06-16] MEDS: DAPTOMYCIN IVPB SCH (18:27)
[2019-06-16] MEDS: JUVEN PACKET PO SCH (21:00)
[2019-06-17] MEDS: LEVOTHYROXINE SOD 0.112 MG TAB PO SCH (05:04)
[2019-06-17] MEDS: HYDRALAZINE HCL 20 MG/ML VIAL IV PRN (05:40)
[2019-06-17 05:55] LABS: Absolute Lymphocytes (CBC) 0.8 K/uL (0.7-4.9); Basophils % 1.7 % (0-1.3); Hematocrit 26.8 % (39.6-49.0); Lymphocytes % 19.8 % (15.3-44.8); MPV 8.2 fL (7.6-11.3); RBC Red Blood Cell Count 3.16 M/uL (4.33-5.43)
[2019-06-17] MEDS: INSULIN -REGULAR HUMAN 50 UNIT/0.5 ML ML SQ SCH ×4 (07:30→21:00)
[2019-06-17] MEDS: carvediloL 25 MG TAB PO SCH (09:00)
[2019-06-17] MEDS: HYDRALAZINE HCL 25 MG TABLET PO SCH ×3 (09:00→21:00)
[2019-06-17] MEDS: SERTRALINE HCL 50 MG TAB PO SCH ×2 (09:22→21:00)
[2019-06-17] MEDS: CA ACETATE 667 MG CAP PO SCH ×3 (09:22→17:19)
[2019-06-17] MEDS: ASPIRIN 81 MG CHEWABLE TABLET PO SCH (09:23)
[2019-06-17] MEDS: HEPARIN 5000 UNIT/ML 1 ML VIAL SQ SCH ×2 (09:26→21:00)
[2019-06-17] MEDS: NEPRO SHAKE 237 ML CAN PO SCH (09:27)
[2019-06-17] MEDS: JUVEN PACKET PO SCH ×2 (09:27→21:00)
--- NOTE | 2019-06-17 11:02 | P.PN ---
Subjective Date of Service: 06/16/19 Chief Complaint: CONFUSION Subjective: Improving MR. LOO HAS HAD A LONG COURSE OF ADMISSIONS TO TWO HOSPITALS AND [place]. I WILL TALK TO FOR DETAILS NONE OF THE PAPERS WERE SENT TO ME. HE IS STILL NOT ABLE TO TALK WITH ANY SENSE. Review of Systems 10-point ROS is otherwise unremarkable Physical Examination - Vital Signs Temperature: 97.6 F Blood Pressure: 174/79 Pulse: 80 Respirations: 18 Pulse Ox (%): 94 - Physical Exam General: Alert, Mild distress HEENT: Atraumatic, PERRLA, EOMI Neck: Supple, JVD not distended Respiratory: Clear to auscultation bilaterally, Normal air movement Cardiovascular: Regular rate/rhythm, Normal S1 S2 Gastrointestinal: Normal bowel sounds, No tenderness Musculoskeletal: No tenderness Integumentary: No rashes Neurological: Normal speech, Normal tone, Normal affect Lymphatics: No axilla or inguinal lymphadenopathy - Studies Microbiology Data (last 24 hrs): 06/15/19 22:05 Wound - Right Heel Gram Stain - Final 06/15/19 13:58 Clean Catch Urine [place] Count - Final 06/15/19 13:58 Clean Catch Urine - Final No growth. Medications List Reviewed: Yes Assessment And Plan - Current Problems (Diagnosis) (1) CHF (congestive heart failure) Current Visit: Yes Status: Acute Plan: fluid overload from need of HD. Unclear why he decompensated. It can be from sepsis itself. PER. DR AGUIAR HIS CATHETER AT HOME DID NOT FUNCTION WELL. HE IS ON HD DAILY FOR NOW UNTIL FLUID IS NOT CLEARED. Qualifiers: Heart failure type: diastolic Heart failure chronicity: acute Qualified Code(s): I50.31 - Acute diastolic (congestive) heart failure (2) Encephalopathy Current Visit: Yes Status: Acute Plan: from hypoxia, from CHF. will order MRI stroke protocol in am. CT is negative. THIS IS FROM COMBINATION OF CHF, AND POSSIBLE MEDICATION EFFECTS FROM [place]. HE WAS ON ATIVAN, KLONOPIN FOR ANGER, AGITATION IN ADDITION TO ZOLOFT AND TRAMADOL. HIS SEROTONIN LEVELS MAY BE THE CAUSE OF HIS AGITATION. NORMALLY HE HAS ANGER BUT NO CONFUSION AT HOME. (3) CKD (chronic kidney disease) stage 5, GFR less than 15 ml/min Current Visit: Yes Status: Chronic (4) Sepsis associated with vascular access catheter Current Visit: Yes Status: Suspected Plan: This is going on for a while. He still has high procalcitonin. Reeval for source of infection. Qualifiers: Encounter type: initial encounter Qualified Code(s): T82.7XXA - Infection and inflammatory reaction due to other cardiac and vascular devices, implants and grafts, initial encounter; A41.9 - Sepsis, unspecified organism
[2019-06-17 11:41] LABS: Thyroid Stimulating Hormone 2.6 uIU/mL (0.360-3.740)
[2019-06-17] MEDS: COLLAGENASE 30 GM OINTMENT TOP SCH (12:53)
--- NOTE | 2019-06-17 16:21 | PN ---
Subjective: I was able to talk to today to get detailed history of his medical stay at the hospital in [place] because no records were sent from [facility] to my office as patient's primary physician for a long duration for his , and about 3 to 4 months ago in March, his catheter malfunctioned and he had sepsis from the MRSA. He was having weakness on one side in March. It was MRSA infection from the catheter on the right side. He has a fistula for dialysis, but somehow the home nurse during dialysis was having problem with fistula and was not able to complete dialysis, so he was back on catheter dialysis and indicates his MRSA infection was diagnosed at [facility]. He was in the hospital for 5 weeks and usually given vancomycin, which failed to cure the bacteria. He continued to have blood cultures positivity, so the ID specialist in [place] added vancomycin and daptomycin together, which he supposed to continue for about 10 weeks. Usually , this kind of long duration of antibiotics are given with osteomyelitis or endocarditis, but according to Dr. Celaya, which I talked today, said there are no signs of endocarditis on transesophageal echocardiogram, but I believe that treating this endocarditis because he is failing to improve with 1 course of antibiotics for a shorter duration. It indicates he after staying at [facility], then he was transferred to long-term care place with continuation of medications were there. He was agitated, confused, disoriented according to , so they kept on adding medications like Ativan, Klonopin in addition to his tramadol and Zoloft. After that, he was transferred to rehab facility for a couple more weeks and after staying there for couple of weeks, he was sent home and then at home, he was there for 2 days. First day, he was fine; the second day, he had become disoriented, confused, hallucinating with things, which were not there at home and he was brought back to this hospital. At this hospital, he was found to have congestive heart failure with bilateral pleural effusions and Dr. Celaya suspecting that his dialysis was ineffective at home. He is getting dialysis every day for last couple of days here. I believe at this point, now he is acting like he is baseline person when I talked to him today. First 2 days in the hospital, he still remained very confused, disoriented, could not recognized me, and was not able to be fully awake and talk to me, but today, he woke up and back to his normal self. Physical Examination: Vital Signs: Blood pressure 174/79, temperature 97.6, pulse is 80. HEENT: .No JVD. No carotid bruits Chest: Clear. Heart: Regular with a systolic murmur at pulmonic region. Abdomen: No guarding. No rebound. No rigidity. Extremities: Both legs examination, his great toes on both sides have gangrenous changes at the distal end. His circulation is poor on both the DP and PT, which are dorsalis pedis and posterior tibial arteries on both sides. He has good circulation and good pulse in the popliteal artery on both sides and he also has an ulcer, which is form of blister on the right heel area measuring about 6 x 6 cm. According to , all these were present when he came home from [facility], but they were not attended for. Laboratory Data: White count of 3800, hemoglobin 8.7, hematocrit 26. Potassium of 3.3, BUN 44, creatinine 5.02, which are chronic for him. Potassium is slightly low, which will be adjusted by dialysis physician. Assessment And Plan: 1. Catheter infection possible, but the culture was negative per Dr. Celaya. There is a suspicion of the catheter giving him sepsis from methicillin-resistant Staphylococcus aureus. He also had a clot at the tip of the catheter, which is removed and gone at this point when the catheter was removed. He does not have a new catheter. He is getting dialysis through the AV fistula, which is effective right now somehow the home nurse had problem accessing the fistula on the left side. Plan is to continue 10 weeks of total antibiotics that he will be finished with the next 2 weeks on antibiotics. 2. End-stage renal failure with dialysis. Dr. Celaya is managing this. He will manage electrolyte imbalance also. 3. 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 I have asked advice nurses to offload his feet and advised him how to do it. We will also order arterial Doppler on both sides and plan will be to get him to do atherectomy on outpatient basis, which I will be arranging with [facility] in future. It looks like he would be possibly able to going home in couple of days depending on how he does with home dialysis and IV antibiotics will be finished at the dialysis center. YOSELYN/MARY Voice ID: [id number] Report ID: [id number] ANAT
[2019-06-18] MEDS: HEPARIN 5000 UNIT/ML 1 ML VIAL SQ SCH ×3 (00:33→20:58)
[2019-06-18] MEDS: SERTRALINE HCL 50 MG TAB PO SCH ×3 (00:35→20:56)
[2019-06-18] MEDS: NA CHLORIDE 0.9% IVPB SCH (00:37)
[2019-06-18] MEDS: DAPTOMYCIN IVPB SCH (00:37)
--- NOTE | 2019-06-18 04:08 | PN ---
Date of Progress Note: 06/17/2019 Subjective: The patient was admitted with over volume, being dialyzed on a daily basis. Patient start being comfortable. Physical Examination: Vital Signs: Blood pressure 159/91, pulse 74, afebrile. The patient had an ultrafiltration of 3500. Chest: Faint rales bilateral. Heart: S1, S2 regular. Abdomen: Soft, nontender. Extremities: No edema. over the night the patient had good urine output . Laboratory Data: H and H 8.7/26.8. Sodium 139, potassium of 3.3, bicarb 28, BUN 44, creatinine 5, calcium 7.9. Current Medications: The patient is on include, 1. Epogen. 2. Aspirin. 3. Daptomycin and vancomycin. 4. Heparin. 5. Lorazepam. 6. Insulin. 7. Levothyroxine. Assessment And Plan: 1. End-stage renal disease, over volume. Dialyze daily, feeling better. We will continue to monitor. 2. Hypertension, controlled optimal. Continue current medication. 3. Secondary hyperparathyroid, continue binder. ROCÍO Voice ID: [id number] Report ID: [id number] ANAT
[2019-06-18] MEDS: LEVOTHYROXINE SOD 0.112 MG TAB PO SCH (05:49)
[2019-06-18] MEDS: INSULIN -REGULAR HUMAN 50 UNIT/0.5 ML ML SQ SCH ×4 (07:30→20:53)
[2019-06-18] MEDS: CA ACETATE 667 MG CAP PO SCH ×3 (09:38→16:50)
[2019-06-18] MEDS: carvediloL 25 MG TAB PO SCH (09:39)
[2019-06-18] MEDS: ASPIRIN 81 MG CHEWABLE TABLET PO SCH (09:39)
[2019-06-18] MEDS: NEPRO SHAKE 237 ML CAN PO SCH (09:39)
[2019-06-18] MEDS: HYDRALAZINE HCL 25 MG TABLET PO SCH ×3 (09:39→20:56)
[2019-06-18] MEDS: JUVEN PACKET PO SCH ×2 (09:39→20:55)
[2019-06-18] MEDS: COLLAGENASE 30 GM OINTMENT TOP SCH (09:43)
[2019-06-18] MEDS ORDERED: POTASSIUM CL SA 10 MEQ TAB PO ONE (11:19)
[2019-06-18] MEDS ORDERED: ZIPRASIDONE MESYLA 20 MG/VIAL IM PRN (11:21)
[2019-06-18] MEDS ORDERED: WATER FOR INJ,STERILE 10 ML IM PRN (11:21)
--- NOTE | 2019-06-18 12:37 | RAD REPORT ---
EXAM DESCRIPTION: US - Lower Extremity Arterial Bilat - 06/17/2019 8:49 pm CLINICAL HISTORY: check circulation Claudication COMPARISON: No comparisons TECHNIQUE: Bilateral lower extremity arterial Doppler examination was performed. ABIs were not reque sted. FINDINGS: Multifocal multi segmental mild atherosclerotic plaquing is present in both lower extremit y arterial systems. Triphasic and biphasic waveforms are seen throughout both lower extremity arterial systems to the lev el of the posterior tibial artery. Left dorsalis pedis artery could not be obtained due to motion. Ri ght cells pedis artery demonstrates mildly blunted biphasic waveform. No high-grade stenosis or occlusion. IMPRESSION: No evidence of significant peripheral vascular disease to the level of the ankles.
--- NOTE | 2019-06-18 13:18 | RAD REPORT ---
EXAM DESCRIPTION: RAD - Chest Single View - 06/18/2019 1:09 pm CLINICAL HISTORY: COPD Chest pain. COMPARISON: Chest Single View dated 06/16/2019; Chest Single View dated 06/15/2019; Chest Single View da carmelo 11/02/2017; Chest Pa And Lat (2 Views) dated 10/29/2017 FINDINGS: Portable technique limits examination quality. Mild decrease in the size of bilateral pleural effusions suspected. The heart is normal in size. No d isplaced fractures. IMPRESSION: Mild improvement in lung aeration since comparative study.
--- NOTE | 2019-06-18 16:47 | PN ---
Subjective: Mr. Reynaga is confused, disoriented, agitated today and he has been paranoid off and on for last 3 to 4 months according to family. Patient's also mentioned that his memory is gettin g worse over last few months. Otherwise, he is clinically stable, lying in the bed comfortably, does not have any acute symptoms. Objective: Vital Signs: Blood pressure 160/77, temperature 97.2, pulse is 78. HEENT: No JVD. No carotid bruits. Chest: Clear. Heart: Regular. General: He is weak. He has been in and out hospital and nursing notes for the last 3 months and co ntinue getting physical therapy at home. Laboratory Data: White count of 3800, hemoglobin 8.7, hematocrit 26. Sodium 139, potassium 3.3, BUN 44, creatinine 5.02. Glucose slightly high anywhere from 120 to 180. Assessment And Plannin.Confusion, disorientation, agitation, paranoia is I think all related to his early dementia. I wi ll start patient on Seroquel small dose 25 mg p.o. b.i.d. The patient's understands really well . She has arranged for help at home for daily care. 2.Sepsis from methicillin-resistant Staphylococcus aureus. Currently, patient is on vancomycin and daptomycin, which will be continued at dialysis per Dr. Celaya. Dr. Celaya has kept up with him for last 3 months in other hospitals as he goes to multiple [facility]. I have found about e history of patient and med just yesterday from the . 3.Diabetes mellitus. He was on insulin at home. He has lost a significant amount of weight, so I w ill stop insulin and started glimepiride small dose 2 mg once a day to see how he does on it. 4.Hypokalemia will be adjusted at dialysis. Currently, he will need 1 dose of potassium, which will be given by nurses today. Prognosis remains overall guarded. He does have multiple medical issues, chronic renal failure on dialysis, and diabetes mellitus. Now, early dementia, progressive worsenin g of the general physical condition. He also has arterial stenosis in both legs. Doppler is pending . I suspect he will have stenosis as he has bilateral distal toe gangrene great toe and he has a sia l area which is not healing at this point on the right side. He will need some intervention on outpa tient basis. Discussed with the family about it. YOSELYN/MARY Voice ID: [id number] Report ID: [id number]
--- NOTE | 2019-06-18 18:02 | PN ---
Date of Progress Note: 06/18/2019 Subjective: The patient was admitted with over volume, altered mental status. Patient had hallucina tion. Physical Examination: Vital Signs: Blood pressure 160/77, pulse of 78. Chest: Crackles bilateral. Heart: S1, S2. Regular. Abdomen: Soft, nontender. Extremities: No edema. Dressing on the right leg. Gangrenous toe bilateral. Neurologic: Alert, not oriented to person. Oriented to time and place. Laboratory Data: WBC 3.8, H and H 8.7/26.8, platelets 304. Sodium 139, potassium 3.3, bicarb 28, BU N 44, creatinine 5, calcium 8.1, magnesium 2.2. Current Medications: Include daptomycin, vancomycin, Epogen, carvedilol 25 b.i.d., hydralazine, calc ium carbonate, Nepro, levothyroxine. Assessment And Plan: 1.End-stage renal disease, over volume. I am going to go ahead and arrange for another session of d ialysis tomorrow and we will monitor the patient. We will challenge the patient with fluid. 2.Hypertension. We will utilize blood pressure for more ultrafiltration. 3.Bacteremia. Continue daptomycin and vancomycin. 4.Hypokalemia. The patient is going to be dialyzed on high-potassium bath. 5.Anemia of chronic kidney disease. Continue erythropoiesis-stimulating agent. 6.Altered mental status, dementia. I am going to start the patient on Aricept. The primary care physician has discontinued most of the sedation medication. KWADWO/MARY Voice ID: [id number] Report ID: [id number]
[2019-06-18] MEDS: DONEPEZIL HCL 5 MG TAB PO SCH (20:55)
[2019-06-18] MEDS: QUETIAPINE 25 MG TAB PO SCH (20:56)
[2019-06-18 22:15] LABS: MPV 7.9 fL (7.6-11.3)
[2019-06-18 22:17] LABS: Platelet Estimate ND
[2019-06-19] MEDS: HYDRALAZINE HCL 20 MG/ML VIAL IV PRN (01:23)
[2019-06-19] MEDS: LEVOTHYROXINE SOD 0.112 MG TAB PO SCH (05:14)
[2019-06-19] MEDS: INSULIN -REGULAR HUMAN 50 UNIT/0.5 ML ML SQ SCH ×4 (07:30→21:15)
[2019-06-19] MEDS: GLIMEPIRIDE 2 MG TABLET PO SCH (08:00)
[2019-06-19] MEDS: HYDRALAZINE HCL 25 MG TABLET PO SCH ×3 (09:00→21:17)
[2019-06-19] MEDS: carvediloL 25 MG TAB PO SCH (09:00)
[2019-06-19] MEDS: ASPIRIN 81 MG CHEWABLE TABLET PO SCH (09:45)
[2019-06-19] MEDS: SERTRALINE HCL 50 MG TAB PO SCH ×2 (09:46→21:17)
[2019-06-19] MEDS: QUETIAPINE 25 MG TAB PO SCH ×2 (09:46→21:17)
[2019-06-19] MEDS: HEPARIN 5000 UNIT/ML 1 ML VIAL SQ SCH ×2 (09:46→21:16)
[2019-06-19] MEDS: CA ACETATE 667 MG CAP PO SCH ×3 (09:46→17:05)
[2019-06-19] MEDS: JUVEN PACKET PO SCH ×2 (09:57→21:00)
[2019-06-19] MEDS: NEPRO SHAKE 237 ML CAN PO SCH (09:57)
--- NOTE | 2019-06-19 10:44 | ECHO ---
HEIGHT: 6 ft 1 in WEIGHT: 186 lb 3.2 oz DATE OF STUDY: 06/19/[address]: Adis Lopez MD 2-DIMENSIONAL: YES M.MODE: YES DOPPLER: YES COLOR FLOW: YES TDS: NO PORTABLE: NO DEFINITY: NO BUBBLE STUDY: NO DIAGNOSIS: ENDOCARDITIS, MURMUR CARDIAC HISTORY: CATHERIZATION: NO SURGERY: NO PROSTHETIC VALVE: NO PACEMAKER: NO MEASUREMENTS (cm) DIASTOLIC (NORMALS) SYSTOLIC (NORMALS) IVSd 1.3 (0.6-1.2) LA Diam 3.6 (1.9-4.0) LVEF 50% LVIDd 4.2 (3.5-5.7) LVIDs 3.2 (2.0-3.5) %FS 25% LVPWd 1.3 (0.6-1.2) Ao Diam 3.4 (2.0-3.7) 2 DIMENSIONAL ASSESSMENT: RIGHT ATRIUM: NORMAL LEFT ATRIUM: NORMAL RIGHT VENTRICLE: NORMAL LEFT VENTRICLE: LEFT VENTRICULAR HYPERTROPHY TRICUSPID VALVE: NORMAL MITRAL VALVE: NORMAL PULMONIC VALVE: NORMAL AORTIC VALVE: NORMAL PERICARDIAL EFFUSION: NONE AORTIC ROOT: NORMAL LEFT VENTRICULAR WALL MOTION: NORMAL DOPPLER/COLOR FLOW: NORMAL COMMENTS: NORMAL LEFT VENTRICULAR EJECTION FRACTION. LEFT VENTRICULAR HYPERTROPHY. OTHERWISE NORMAL 2D ECHOCARDIOGRAM WITH DOPPLER. TECHNOLOGIST: Alanis HEDRICK
[2019-06-19] MEDS ORDERED: DAPTOmycin 500 MG in NA CHLORIDE 0.9% 100 ML IVPB SCH (15:00)
[2019-06-19] MEDS: COLLAGENASE 30 GM OINTMENT TOP SCH (16:24)
[2019-06-19] MEDS: DONEPEZIL HCL 5 MG TAB PO SCH (21:17)
[2019-06-20] MEDS: HYDRALAZINE HCL 20 MG/ML VIAL IV PRN (01:21)
--- NOTE | 2019-06-20 02:18 | PN ---
Subjective: Mr. Reynaga is doing lot better. He is not hallucinating as much. Physical Examination: Chest: Clear. Heart: Regular. Abdomen: No guarding, rebound, or rigidity. Vital Signs: Stable. Assessment And Plan: Confusion, disorientation. Hallucination is improved. Patient had possible si de effects of multiple medications given through last 3 months of senior care and hospital admission s, which was before my care for him. I stopped most of his medications, switched him over to Seroque l 25 mg p.o. b.i.d. for hallucinations and Zoloft 50 mg once a day for anger and agitation. Clinical ly, he has improved. He should be discharged home, but he is hypoxic from his chronic obstructive pu lmonary disease, so we will give him oxygen 2 L nasal cannula. I will discharge him tomorrow. His s epsis from possible methicillin-resistant Staphylococcus aureus catheter infection is taken care by Jay Celaya. YOSELYN/MARY Voice ID: [id number] Report ID: [id number]
--- NOTE | 2019-06-20 03:03 | PN ---
Date of Progress Note: 06/19/2019 Chief Complaint: End-stage renal disease, fluid overload. Subjective: Patient is undergoing dialysis with daily treatment to control his hypervolemia and nickie ent is on p.o. fluid restriction. Patient was found to have bacteremia and patient was started on da ptomycin and he received vancomycin as well. Hypertension. Blood pressure is in acceptable control. Review of Systems: Unobtainable. Patient has some confusion, although his mental status is improving. Review of a revi ew of system is limited. Patient denies pain. Denies cough, hemoptysis. Physical Examination: Lungs: Diminished breath sounds at bases. Heart: S1, S2. Abdomen: Soft, benign. Extremities: Slight edema. Laboratory Data: Potassium 3.3, sodium 139, BUN 44, creatinine 5.0, magnesium 2.2. Impression And Plan: 1.End-stage renal disease. Monitor fluid balance. Adjust dialysis treatment accordingly. Patient may need daily dialysis to control volemia. 2.Hypertension. Continue blood pressure medications. Advance ultrafiltration to treat volume overl oad. 3.Anemia of chronic kidney disease. Continue DERREK. 4.Altered mental status of multiple causes per primary team. EB/MODL Voice ID: [id number] Report ID: [id number]
[2019-06-20 05:39] LABS: Basophils % 2.6 % (0-1.3); Hematocrit 28.2 % (39.6-49.0); Lymphocytes % 20.9 % (15.3-44.8); MPV 8.1 fL (7.6-11.3); RBC Red Blood Cell Count 3.26 M/uL (4.33-5.43)
[2019-06-20] MEDS: LEVOTHYROXINE SOD 0.112 MG TAB PO SCH (05:57)
[2019-06-20] MEDS: INSULIN -REGULAR HUMAN 50 UNIT/0.5 ML ML SQ SCH ×2 (07:30→12:17)
[2019-06-20] MEDS: SERTRALINE HCL 50 MG TAB PO SCH (09:04)
[2019-06-20] MEDS: CA ACETATE 667 MG CAP PO SCH ×2 (09:05→12:17)
[2019-06-20] MEDS: QUETIAPINE 25 MG TAB PO SCH (09:05)
[2019-06-20] MEDS: GLIMEPIRIDE 2 MG TABLET PO SCH (09:05)
[2019-06-20] MEDS: ASPIRIN 81 MG CHEWABLE TABLET PO SCH (09:05)
[2019-06-20] MEDS: HYDRALAZINE HCL 25 MG TABLET PO SCH ×2 (09:06→13:28)
[2019-06-20] MEDS: carvediloL 25 MG TAB PO SCH (09:07)
[2019-06-20] MEDS: HEPARIN 5000 UNIT/ML 1 ML VIAL SQ SCH (09:07)
[2019-06-20] MEDS: JUVEN PACKET PO SCH (09:08)
[2019-06-20] MEDS: NEPRO SHAKE 237 ML CAN PO SCH (09:08)
[2019-06-20] MEDS: COLLAGENASE 30 GM OINTMENT TOP SCH (09:08)
[2019-06-20] MEDS ORDERED: SILVER SULFADIAZINE 1% 25 GM TOP ONE (10:33)
[2019-06-20 12:09] VITALS: O2SAT 96
[2019-06-20 12:21] VITALS: BP 121/58; TEMP 98.1
[2019-06-20] MEDS ORDERED: SODIUM HYPOCHLORITE 0.5% 473 ML TOP SCH (21:00)
--- NOTE | 2019-06-20 22:10 | DS ---
Date of Discharge: 06/20/2019 Final Diagnosis: Fluid overload. Secondary Diagnoses: 1.Hallucinations, possible serotonin syndrome. 2.Early dementia. 3.Renal failure on dialysis. 4.History of sepsis from catheter infection. Hospital Course: Patient is a 68-year-old diabetic who has spent 3 months in the hospitals and nursi ng home since March for infection of catheter and sepsis related to MRSA, failed to improve, on va ncomycin IV. Has been given dual antibiotic for 10 weeks by the ID specialist. Since that admission in [place], he went to detention, stayed there a few weeks, comes to this hospital after 2 days s evon at home with hallucinations, shortness of breath, with hypoxia. He had bilateral pleural effusio ns. His dialysis was not effective. Dr. Celaya removed excessive amount of fluid in the hospital to improve him and clinically improved, but he continued to have hallucinations and anger, which I th ought was possibly because of combination of lorazepam, Klonopin, and tramadol from detention in a ddition to Zoloft. I discontinued most of his medications and put him on Zoloft 50 mg once a day and Seroquel 25 mg p.o. b.i.d. He has done significantly well since then. He has been lot more pleasan t for the last 2 days. He is now discharged home in stable condition. He is on tablet glimepiride 2 mg once a day for diabetes instead of insulin and he will follow up in office in about a week or 10 days. He has this pressure sore on the heel area since the detention admission and 2 gangrenous t oes, which are dry gangrene in the absence of vascular disease, which I believe that could be from th romboembolism from the heart. In any case, currently, he is stable. [facility] my clinic. AVELINAD/MODL Voice ID: [id number] Report ID: [id number]
[2019-06-21] MEDS ORDERED: COLLAGENASE 30 GM OINTMENT TOP SCH (09:00)
== END 2019-06-20 13:40 | disposition home health service (06) | DRG 880 ==
LOC: ER 11:02 → 4TH 13:49 → OBSVTOIN 06-16 12:04
PROVIDERS: ADMIT Internal Medicine; ATTEND Internal Medicine
PROC: 5A1D70Z Performance of Urinary Filtration, Intermittent, Less than 6 Hours Per Day (ICD-10-PCS; principal; 2019-06-14)
PROC: 5A1D70Z Performance of Urinary Filtration, Intermittent, Less than 6 Hours Per Day (ICD-10-PCS; 2019-06-14)
PROC: 5A1D70Z Performance of Urinary Filtration, Intermittent, Less than 6 Hours Per Day (ICD-10-PCS; 2019-06-14)
PROC: 5A1D70Z Performance of Urinary Filtration, Intermittent, Less than 6 Hours Per Day (ICD-10-PCS; 2019-06-14)
DX: R44.3 Hallucinations, unspecified (principal); A41.02 Sepsis due to Methicillin resistant Staphylococcus aureus; N18.6 End stage renal disease; I50.31 Acute diastolic (congestive) heart failure; T82.7XXA Infection and inflammatory reaction due to other cardiac and vascular devices, implants and grafts, initial encounter; I13.2 Hypertensive heart and chronic kidney disease with heart failure and with stage 5 chronic kidney disease, or end stage renal disease; G93.40 Encephalopathy, unspecified; E11.52 Type 2 diabetes mellitus with diabetic peripheral angiopathy with gangrene; I96 Gangrene, not elsewhere classified; T42.4X5A Adverse effect of benzodiazepines, initial encounter; E87.70 Fluid overload, unspecified; I25.10 Atherosclerotic heart disease of native coronary artery without angina pectoris; E11.22 Type 2 diabetes mellitus with diabetic chronic kidney disease; E87.6 Hypokalemia; F03.90 Unspecified dementia, unspecified severity, without behavioral disturbance, psychotic disturbance, mood disturbance, and anxiety; T40.4X5A Adverse effect of other synthetic narcotics, initial encounter; Y92.9 Unspecified place or not applicable; Z99.2 Dependence on renal dialysis; L89.619 Pressure ulcer of right heel, unspecified stage
CPT/HCPCS: 36415; 51702; 70450; 70551; 71045; 80048; 80076; 80202; 82550; 82607; 82805; 82947; 83605; 83735; 83880; 84145; 84443; 84484; 85025; 85049; 85610; 87040; 87070; 87086; 87088; 87205; 90935; 93005; 93306; 93925; 99285; G0103; G0378; J0360; J0878; J1644; J3370; J3590; J7030; Q5105

== ENCOUNTER 2019-08-08 14:06 | Inpatient (IN) | payer OTHER ==
--- OUTSIDE RECORDS SUMMARY | 2019-08-08 14:53 | XMS REPORT ---
:1950 Author Organization [facility] t Address [address] [place] [address] Dr. Ceballos [address] [place] [id number] Care Team Providers Name Role Phone Unavailable [...]
[2019-08-08 15:35] VITALS: BMI 23.1
[2019-08-08] MEDS ORDERED: D50W 25 GM/50 ML SYRINGE/VIAL IV PRN (15:44)
[2019-08-08] MEDS ORDERED: GLUCAGON 1 MG/VIAL IM PRN (15:44)
[2019-08-08] MEDS ORDERED: ACETAMINOPHEN 325 MG TABLET PO PRN (16:00)
[2019-08-08] MEDS ORDERED: DIPHENHYDRAMINE 25 MG TAB/CAP PO PRN (16:00)
[2019-08-08] MEDS ORDERED: POLYETHYL GLY 3350 17 GM/DOSE PO PRN (16:00)
[2019-08-08] MEDS ORDERED: LOPERAMIDE HCL 2 MG CAPSULE PO PRN (16:00)
[2019-08-08] MEDS ORDERED: ONDANSETRON 4 MG (ODT) TAB PO PRN (16:00)
[2019-08-08] MEDS ORDERED: PNEUMOCOCCAL VACCINE 0.5 ML IMVAC ONE (16:00)
[2019-08-08 16:47] LABS: Absolute Lymphocytes (CBC) 0.6 K/uL (0.7-4.9); Basophils % 0.2 % (0-1.3); Hematocrit 31.1 % (39.6-49.0); Lymphocytes % 4.5 % (15.3-44.8); MPV 8.1 fL (7.6-11.3); RBC Red Blood Cell Count 3.44 M/uL (4.33-5.43)
[2019-08-08 16:52] LABS: Protime INR 1.3
[2019-08-08 17:05] LABS: Blood Morphology Comment NOT SEEN (NOT SEEN); Platelet Estimate INCR; Urine White Blood Cell Casts OK
--- NOTE | 2019-08-08 17:06 | RAD REPORT ---
EXAM DESCRIPTION: Jacob Single View08/08/2019 4:40 pm CLINICAL HISTORY: Shortness of breath COMPARISON: June 2019 FINDINGS: Small to moderate bilateral pleural effusions with bibasilar atelectasis. Upper lobes appear clear. Heart is upper limits normal size
[2019-08-08] MEDS: NACHLORIDE 0.45% 1,000 ML IV SCH (17:09)
[2019-08-08] MEDS: CEFEPIME/SWI 1gm 10 ML IVP SCH ×2 (17:09→21:08)
[2019-08-08] MEDS: ENOXAPARIN 30 MG/0.3 ML SQ SCH (17:09)
[2019-08-08] MEDS: INSULIN -REGULAR HUMAN 50 UNIT/0.5 ML ML SQ SCH ×2 (17:10→21:29)
[2019-08-08 18:04] LABS: ALT/SGPT 18 U/L (12-78); AST/SGOT 7 U/L (15-37); Albumin 1.8 g/dL (3.4-5.0); Alkaline Phosphatase 115 U/L (45-117); BUN Blood Urea Nitrogen 54 mg/dL (7-18); Bicarbonate 32 mmol/L (21-32); Bilirubin Direct < 0.1 mg/dL (0-0.2); Bilirubin Total 0.2 mg/dL (0.2-1.0); Glucose Level 387 mg/dL (74-106); Magnesium 2.4 mg/dL (1.8-2.4); Phosphorus 3.6 mg/dL (2.5-4.9); Potassium 3.3 mmol/L (3.5-5.1); Protein, Total 6.8 g/dL (6.4-8.2); Sodium Level 135 mmol/L (136-145)
[2019-08-09 04:25] LABS: Absolute Lymphocytes (CBC) 0.8 K/uL (0.7-4.9); Basophils % 0.7 % (0-1.3); Hematocrit 30.4 % (39.6-49.0); MPV 7.8 fL (7.6-11.3); RBC Red Blood Cell Count 3.37 M/uL (4.33-5.43)
[2019-08-09 04:53] LABS: Magnesium 2.4 mg/dL (1.8-2.4); Potassium 3.4 mmol/L (3.5-5.1)
[2019-08-09] MEDS: [UNRECOGNIZED DRUG - OTHER] NEB SCH ×2 (07:00→13:00)
[2019-08-09] MEDS: IPRATROPIUM NEB SCH ×2 (07:00→13:00)
[2019-08-09] MEDS: ALBUTEROL SULFATE NEB SCH ×2 (07:00→13:00)
[2019-08-09] MEDS: INSULIN -REGULAR HUMAN 50 UNIT/0.5 ML ML SQ SCH ×4 (07:30→21:58)
[2019-08-09] MEDS ORDERED: SUCCINYLCHOLINE 20 MG/ML (10 ML) IV ONE (07:46)
[2019-08-09] MEDS ORDERED: propofoL 200 MG/20 ML VIAL IV ONE (08:02)
[2019-08-09] MEDS ORDERED: LIDOCAINE 2% MPF 5 ML VIAL ONE (08:03)
[2019-08-09] MEDS ORDERED: FENTANYL CITR 100 MCG/2 ML ONE (08:03)
[2019-08-09] MEDS ORDERED: NA CHLORIDE 0.9% 500 ML ONE (08:18)
[2019-08-09] MEDS ORDERED: NIFEDIPINE XL 60 MG TABLET PO SCH (09:00)
[2019-08-09] MEDS: ENOXAPARIN 30 MG/0.3 ML SQ SCH (09:00)
[2019-08-09] MEDS: CEFEPIME/SWI 1gm 10 ML IVP SCH (09:00)
--- NOTE | 2019-08-09 09:03 | PREOPCON ---
Date of Consultation: 08/08/2019 Reason For Consultation: Infected wound, right heel. History Of Present Illness: Patient is a 68-year-old gentleman with multiple medical problems, was a dmitted by Dr. Lopez with infected right heel wound with some fever, in the area pain, minimal discha rge. No sore throat, runny nose, cough, headaches, or dizziness. No chest pain. Review of Systems: Otherwise unremarkable. Past Medical History: Significant for diabetes, hypertension, end-stage renal disease. History of M RSA. Past Surgical History: Fistula is his left upper arm, dialysis access procedures. Allergies: INCLUDE PENICILLIN, MORPHINE, AND CLINDAMYCIN. Social History: Patient currently does not smoke or drink. Family History: Noncontributory. Physical Examination: Vital Signs: Stable. He is afebrile. He is awake, alert, and oriented x3. Head and Neck: No masses. Chest: Clear. Heart: S1, S2. Abdomen: Soft. Extremities: Diminished dorsalis pedis and posterior tibial pulses. There is a dry eschar at the ti p of the first toe, but there is no surrounding erythema, warmth, or edema. On the right heel, there is approximately 10 x 10 cm area of necrotic eschar with surrounding erythema warmth and some fluctu ance. Laboratory Data: Shows a white count of 15.9 with a left shift. Sedimentation rate is 38. INR is 1. 30. Potassium is 3.4. BUN and creatinine are elevated. Assessment: Infected wound, right heel. Recommendation: IV antibiotics as ordered, to the OR for excisional debridement of infected right he el wound. Patient understands the risks, benefits, and alternatives, agrees to procedure. /MODL Voice ID: [id number] Report ID: [id number]
[2019-08-09] MEDS ORDERED: COLLAGENASE 30 GM OINTMENT TOP ONE (09:13)
--- NOTE | 2019-08-09 09:14 | P.OP ---
Preoperative diagnosis: Infected wound right heel with likely osteo Postoperative diagnosis: same Primary procedure: Excisional debridement infected wound right heel to sq and mm [id number] Anesthesia: MAC Estimated blood loss: min Specimen: infected tissue and pus Findings: as above Complications: None Transferred to: Recovery Room Condition: Good
[2019-08-09] MEDS ORDERED: EPOETIN 4,000 UNIT/ML VIAL IV SCH (09:30)
--- NOTE | 2019-08-09 10:05 | OP ---
Date of Procedure: 08/09/2019 Surgeon: Toro Gutierrez MD Preoperative Diagnosis: Infected wound, right heel with osteomyelitis. Postoperative Diagnosis: Infected wound, right heel with osteomyelitis. Procedure: Excisional debridement of infected wound, right heel, 10 x 10 cm, subcutaneous tissue and muscle. Estimated Blood Loss: Minimal. Specimens: Pus and necrotic tissue. Findings: As above. Anesthesia: MAC. Complications: None. Disposition: Patient tolerated the procedure in stable condition, taken to Recovery in good general condition. Description Of Procedure: Patient was brought to the OR and placed in supine position. MAC anesthes ia was begun. The patient was prepped and draped in usual sterile fashion in the left lateral positi on. Then cautery and 15 blade used to make an incision around the heel, 10 x 10 cm down through the deep subcutaneous tissue and muscle. Everything was infected and was excised down to the bone. Ther e was pus and cultures were done. The infected tissue was sent to Pathology. Wound was irrigated. Bleeding controlled with cautery. Collagenase dressing was applied. Patient was awakened and taken to Recovery in good general conditi on. /MODL Voice ID: [id number] Report ID: [id number]
[2019-08-09] MEDS: DOCUSATE NA 100 MG CAP PO SCH ×2 (11:14→21:53)
[2019-08-09] MEDS: LOSARTAN POTASSIUM 50 MG TABLET PO SCH ×2 (11:14→21:55)
[2019-08-09] MEDS: PANTOPRAZOLE 40MG TABLET PO SCH (11:15)
[2019-08-09] MEDS: SERTRALINE HCL 50 MG TAB PO SCH (11:15)
[2019-08-09] MEDS: carvediloL 25 MG TAB PO SCH ×2 (11:15→21:53)
[2019-08-09] MEDS: QUETIAPINE 25 MG TAB PO SCH ×2 (11:15→21:55)
[2019-08-09] MEDS: GLIMEPIRIDE 2 MG TABLET PO SCH (11:15)
--- NOTE | 2019-08-09 12:09 | CON ---
Date of Consultation: 08/09/2019 Reason For Consultation: Elevated BUN and creatinine, fluid management. History Of Present Illness: This is a 68-year-old gentleman, well-known to me from dialysis with significant past medical history of hypertension; secondary hyperparathyroidism; end-stage renal disease, on hemodialysis, Wednesday, Wednesday, Wednesday; congestive heart failure. Patient recently discharged from the hospital after long hospitalization with septic shock, line infection. Patient apparently had gangrenous foot, visit with his Primary and patient was admitted for debridement. Patient will undergo debridement today. Patient feeling better. Past Medical History: 1. Hypertension. 2. Secondary hyperparathyroidism. 3. End-stage renal disease. 4. Congestive heart failure. 5. Bacteremia. Allergies: PENICILLIN, MORPHINE, AND CLINDAMYCIN. Home Medications: 1. Trazodone. 2. Carvedilol. 3. Pantoprazole. 4. Nifedipine. 5. Losartan 50. 6. Glimepiride. 7. Ampicillin. Current Medications: In the hospital include: 1. Carvedilol. 2. Cefepime. 3. Vancomycin. 4. Lovenox. 5. Losartan. 6. Nifedipine. 7. Trazodone. Past Surgical History: 1. AV fistula. 2. PermCath placement and removal. Review of Systems: Head and Neck: No red eye. No ear pain. GI: No nausea. No vomiting. : No polyuria. No dysuria. No hematuria. OUTDOOR EDUCATION TEACHER: Not applicable. Respiratory: No shortness of breath. Cardiovascular: No chest pain. Endocrine: No polydipsia. Skin: No rash. Neuro: Has weakness, difficulty ambulating. Musculoskeletal: Has foot pain. Endocrine: No polydipsia. Physical Examination: Vital Signs: Blood pressure 117/54, pulse of 81. Chest: Clear to auscultation. Heart: S1, S2. Regular. Abdomen: Soft. Nontender. Extremities: Dressing on the foot on the left side. Neurologic: Alert. No focal. Laboratory Data: WBC 15.9, H and H 9.7/30.4, platelets 473. Sodium 134, potassium 3.4, bicarb 25, BUN 61, creatinine 5, calcium 8.9, magnesium 2.4. Assessment And Plan: 1. End-stage renal disease. We will maintain the patient on his dialysis, Wednesday, Wednesday, Jake. 2. We will try to challenge the patient. 3. Over volume. Patient is going to be challenged today. 4. Anemia of chronic kidney disease. Resume Retacrit. 5. Hypertension. Currently, blood pressure well controlled. I going to go ahead and discontinue nifedipine to avoid low blood pressure on dialysis. 6. Foot infection. Agree with current antibiotic. We will follow up culture. Follow up with Surgery. Thank you, Dr. Lopez for allowing us to participate in the care of your patient. ROCÍO Voice ID: [id number] Report ID: [id number] ANAT
--- NOTE | 2019-08-09 16:38 | P.CNS ---
Date of Consult: 08/09/19 Subjective: The patient is a 68-year-old male with past medical history of hypertension, secondary hyperparathyroidism, end-stage renal disease on HD, congestive heart failure. Patient was admitted to [facility] for right foot infection and found to have osteomyelitis to right heel which i was consulted for. Past medical history: Hypertension, Secondary hyperparathyroidism, End-stage renal disease, Congestive heart failure, Bacteremia. Family history: Noncontributory Social history: Denies tobacco and alcohol use Allergies: Clindamycin, morphine, PCN Active Medications Acetaminophen (Tylenol -Tablet) 650 mg PO Q6HP PRN PRN Reason: Pain scale 2-4 (Mild) Stop: 09/07/19 16:01 Albuterol Sulfate (Proventil 0.083% Neb Soln) 2.5 mg IH [id number] JOSE Stop: 09/08/19 20:01 Carvedilol (Coreg) 25 mg PO Q12HR JOSE Stop: 09/08/19 09:01 Last Admin: 08/09/19 11:15 Dose: Not Given Documented by: Dextrose (Dextrose 50% Syringe/Vial) 12.5 gm IV PRN PRN; Protocol PRN Reason: HYPOGLYCEMIA Stop: 09/07/19 15:45 Diphenhydramine HCl (Benadryl Tab/Cap) 25 mg PO BEDTIME PRN PRN PRN Reason: INSOMNIA Stop: 09/07/19 16:01 Docusate Sodium (Colace Cap) 100 mg PO BID JOSE Stop: 09/08/19 09:01 Last Admin: 08/09/19 11:14 Dose: Not Given Documented by: Donepezil HCl (Aricept) 5 mg PO BEDTIME JOSE Stop: 09/08/19 21:01 Enoxaparin Sodium (Lovenox 30 Mg Inj) 30 mg SQ DAILY JOSE Stop: 09/07/19 16:01 Last Admin: 08/09/19 09:00 Dose: Not Given Documented by: Epoetin Jhonathan (Retacrit) 4,000 unit IV EVERY HD JOSE Stop: 09/08/19 09:31 Last Admin: 08/09/19 12:19 Dose: 4,000 unit Documented by: Glimepiride (Amaryl) 2 mg PO DAILY WITH BREAKFAST JOSE Stop: 09/08/19 08:01 Last Admin: 08/09/19 11:15 Dose: 2 mg Documented by: Glucagon (Glucagen) 1 mg IM 1X PRN; Protocol PRN Reason: HYPOGLYCEMIA Stop: 09/07/19 15:45 Heparin Sodium (Porcine) (Heparin 1,000 Units/Ml) 6,000 unit IV EVERY HD [facility] Stop: 08/14/19 11:01 Vancomycin HCl (Vancomycin 1 Gm/250 Ml Ns Ivpb) 1 gm in 250 mls @ 250 mls/hr IV AFTER EACH DIALYSIS JOSE Stop: 09/07/19 15:46 Sodium Chloride (Sodium Chloride 0.45%) 1,000 mls @ 30 mls/hr IV .[id number] JOSE Stop: 09/07/19 16:01 Last Admin: 08/08/19 17:09 Dose: 1,000 mls Documented by: Cefepime HCl (Maxipime 1 Gm/10 Ml Ivp) 10 mls @ 200 mls/hr IVP DAILY JOSE Stop: 09/07/19 15:46 Insulin Human Regular (Novolin -R) 0 unit SQ ACHS [facility]; Protocol Stop: 09/07/19 16:31 Last Admin: 08/09/19 12:53 Dose: 3 unit Documented by: Ipratropium [place] (Atrovent Neb) 0.5 mg IH [id number] [facility] Stop: 09/08/19 20:01 L-Arginine/L-Glutamine/HMB (Jose) 1 pkt PO BID [facility] Stop: 09/08/19 21:01 Loperamide HCl (Imodium) 4 mg PO Q4HP PRN PRN Reason: DIARRHEA Stop: 09/07/19 16:01 Losartan Potassium (Cozaar) 50 mg PO Q12HR JOSE Stop: 09/08/19 09:01 Last Admin: 08/09/19 11:14 Dose: Not Given Documented by: Ondansetron HCl (Zofran) 4 mg PO Q6HP PRN PRN Reason: NAUSEA / VOMITING Stop: 09/07/19 16:01 Ondansetron HCl (Zofran) 4 mg IV Q6HP PRN PRN Reason: NAUSEA / VOMITING Stop: 09/07/19 16:01 Pantoprazole Sodium (Protonix Tab) 40 mg PO DAILY [facility]; Protocol Stop: 09/08/19 09:01 Last Admin: 08/09/19 11:15 Dose: 40 mg Documented by: Polyethylene Glycol (Glycolax) 17 gm PO BEDTIME PRN PRN PRN Reason: CONSTIPATION Stop: 09/07/19 16:01 Quetiapine Fumarate (Seroquel) 25 mg PO BID JOSE Stop: 09/08/19 09:01 Last Admin: 08/09/19 11:15 Dose: 25 mg Documented by: Sertraline HCl (Zoloft) 50 mg PO DAILY JOSE Stop: 09/08/19 09:01 Last Admin: 08/09/19 11:15 Dose: 50 mg Documented by: Sodium Chloride (Normal Saline Flush) 10 ml IV QSHIFT JOSE Stop: 09/07/19 17:01 Last Admin: 08/09/19 16:09 Dose: 10 ml Documented by: Sodium Chloride (Normal Saline Flush) 10 ml IV PRN PRN PRN Reason: IV ACCESS FLUSH Stop: 09/07/19 16:01 Trazodone HCl (Desyrel) 50 mg PO BEDTIME [facility] Stop: 09/08/19 21:01 ROS: General: Patient reports feels well and good appetite CV: Denies chest pain RESP: denies shortness of breath. Report wears 2 L nasal cannula at home Objective: Temp Pulse Resp BP Pulse Ox 99.6 F 81 20 117/54 L 99 08/09/19 11:00 08/09/19 11:15 08/09/19 11:00 08/09/19 11:15 08/09/19 11:00 Laboratory Last Values WBC 15.9 K/uL (4.3-10.9) H D 08/09/19 04:09 RBC 3.37 M/uL (4.33-5.43) L 08/09/19 04:09 Hgb 9.7 g/dL (13.6-17.9) L 08/09/19 04:09 Hct 30.4 % (39.6-49.0) L 08/09/19 04:09 MCV 90.3 fL (80-100) 08/09/19 04:09 MCH 28.7 pg (27.0-35.0) 08/09/19 04:09 MCHC 31.8 g/dL (32.0-36.0) L 08/09/19 04:09 RDW 18.0 % (12.1-15.2) H 08/09/19 04:09 Plt Count 473 K/uL (152-406) H 08/09/19 04:09 MPV 7.8 fL (7.6-11.3) 08/09/19 04:09 Neutrophils % 85.7 % (41.7-73.7) H 08/09/19 04:09 Lymphocytes % 5.0 % (15.3-44.8) L 08/09/19 04:09 Monocytes % 6.8 % (3.3-12.3) 08/09/19 04:09 Eosinophils % 1.8 % (0-4.4) 08/09/19 04:09 Basophils % 0.7 % (0-1.3) 08/09/19 04:09 Absolute Neutrophils 13.7 K/uL (1.8-8.0) H 08/09/19 04:09 Absolute Lymphocytes 0.8 K/uL (0.7-4.9) 08/09/19 04:09 Absolute Monocytes 1.1 K/uL (0.1-1.3) 08/09/19 04:09 Absolute Eosinophils 0.3 K/uL (0-0.5) 08/09/19 04:09 Absolute Basophils 0.1 K/uL (0-0.5) 08/09/19 04:09 Morphology Comment Not seen (NOT SEEN) 08/08/19 16:18 ESR Westergren 38 mm/HR (0-20) H 08/08/19 16:18 PT 15.3 SECONDS (9.5-12.5) H 08/08/19 16:18 INR 1.30 08/08/19 16:18 APTT 31.4 SECONDS (24.3-36.9) 08/08/19 16:18 Sodium 134 mmol/L (136-145) L 08/09/19 04:09 Potassium 3.4 mmol/L (3.5-5.1) L 08/09/19 04:09 Chloride 97 mmol/L (98-107) L 08/09/19 04:09 Carbon Dioxide 31 mmol/L (21-32) 08/09/19 04:09 BUN 61 mg/dL (7-18) H 08/09/19 04:09 Creatinine 5.17 mg/dL (0.55-1.3) H* 08/09/19 04:09 Estimated GFR 11 mL/min (=/>90) L 08/09/19 04:09 Glucose 159 mg/dL (74-106) H 08/09/19 04:09 POC Glucose 196 mg/dl (65-120) H 08/09/19 15:57 Hemoglobin A1c 7.5 % (4.2-6.3) H 08/08/19 16:18 Calcium 8.9 mg/dL (8.5-10.1) 08/09/19 04:09 Phosphorus 3.6 mg/dL (2.5-4.9) 08/08/19 16:18 Magnesium 2.4 mg/dL (1.8-2.4) 08/09/19 04:09 Total Bilirubin 0.2 mg/dL (0.2-1.0) 08/08/19 16:18 Direct Bilirubin < 0.1 mg/dL (0-0.2) 08/08/19 16:18 AST 7 U/L (15-37) L 08/08/19 16:18 ALT 18 U/L (12-78) 08/08/19 16:18 Alkaline Phosphatase 115 U/L (45-117) 08/08/19 16:18 C-Reactive Protein 363.00 mg/L (<3.00) H 08/08/19 16:18 Serum Total Protein 6.8 g/dL (6.4-8.2) 08/08/19 16:18 Albumin 1.8 g/dL (3.4-5.0) L 08/08/19 16:18 Globulin 5.0 g/dL (2.3-3.5) H 08/08/19 16:18 Albumin/Globulin Ratio 0.4 (1.1-1.8) L 08/08/19 16:18 Vitamin B12 1170 pg/mL (193-986) H 08/08/19 16:18 25-OH Vitamin D Total 38.8 ng/mL (30-100) 08/08/19 16:18 TSH 2.380 uIU/mL (0.360-3.740) 08/08/19 16:18 Vancomycin Trough 1.7 ug/mL (5.0-20.0) L 08/09/19 12:02 ROS: General: Awake, lying in bed receiving HD CV: S1, S2 RESP: Clear to auscultation, on 2L NC ABD: Flat, soft, nontender Extremities: 1+ pedal pulses, no edema Skin: Right foot with dressing CDI, nitza area with no erythema, warmth or swelling. Right great toe with black discoloration. Onychomycosis to bilateral feet. Assessment and plan: Osteomyelitis right heel s/p I&D 08/08 Leukocytosis, Blood and wound cultures pending Antibiotic treatment Cefepime and Vancomycin, recommend for total of 6 weeks Recommend possible LTAC facility Will continue to monitor Thank you for consult Patient examined and discussed with Dr. Cho
--- NOTE | 2019-08-09 17:34 | P.PN ---
Subjective Date of Service: 08/09/19 Chief Complaint: HEEL ULCER. MR. LOO IS A DIABETIC WHO WAS ON DATA PROCESSING CLERK ANTIBIOTIC FOR POSITIVE BLOOD CULTURES GIVEN BY [employer] FORMING MACHINE OPERATOR. THE SOURCE WAS UNCLEAR. HE DEVELOPED THIS ULCER WHILE ON ANTIBIOTICS AND GOT WORSE WHILE BEING ON DAPTOMYCIN IV. HE IS BETTER TODAY HE IS GETTING ANTIBIOTICS IV SINCE YESTERDAY BY ME. Review of Systems 10-point ROS is otherwise unremarkable Physical Examination - Vital Signs Temperature: 99.6 F Blood Pressure: 117/54 Pulse: 81 Respirations: 20 Pulse Ox (%): 99 - Physical Exam General: Alert, In no apparent distress HEENT: Atraumatic, PERRLA, EOMI Neck: Supple, JVD not distended Respiratory: Clear to auscultation bilaterally, Normal air movement Cardiovascular: Regular rate/rhythm, Normal S1 S2 Gastrointestinal: Normal bowel sounds, No tenderness Musculoskeletal: No tenderness Integumentary: No rashes, Other (R HEEL GANGRENOUS ULCER.) Neurological: Normal speech, Normal tone, Normal affect Lymphatics: No axilla or inguinal lymphadenopathy - Studies Laboratory Data (last 24 hrs) 08/09/19 04:09: Sodium 134 L, Potassium 3.4 L, BUN 61 H, Creatinine 5.17 H*, Glucose 159 H, Magnesium 2.4 08/09/19 04:09: WBC 15.9 H D, Hgb 9.7 L, Hct 30.4 L, Plt Count 473 H 08/08/19 16:18: Sodium 135 L, Potassium 3.3 L, BUN 54 H, Creatinine 4.68 H, Glucose 387 H, Phosphorus 3.6, Magnesium 2.4, Total Bilirubin 0.2, AST 7 L, ALT 18, Alkaline Phosphatase 115 Microbiology Data (last 24 hrs): 08/08/19 16:27 Blood - Blood Anaerobic Blood Culture - Final Medications List Reviewed: Yes Assessment And Plan - Current Problems (Diagnosis) (1) Gangrene of right foot Current Visit: Yes Status: Chronic Plan: FAILED TO RECOVER BEING ON ANTIBIOTICS. I SUSPECT AND AGREE WITH DR. KAUR THAT HE WILL NOT RECOVER WITH MORE ANTIBIOTICS IV. HE WILL NEED AMPUTATION TO SURVIVE. I TALKED TO AND SHE UNDERSTANDS. (2) Diabetes Current Visit: Yes Status: Chronic Plan: WILL FU A1C RTN. Qualifiers: Diabetes mellitus type: type 2 (3) CKD (chronic kidney disease) stage 5, GFR less than 15 ml/min Current Visit: No Status: Chronic Plan: ON HD EVERY OTHER DAY.
[2019-08-09] MEDS: VANCOMYCIN/NS 1 gm 1 GM/250 ML BAG IV SCH (18:26)
--- NOTE | 2019-08-09 18:56 | RAD REPORT ---
EXAM DESCRIPTION: MRI - Foot Right Wo Cont - 08/09/2019 6:14 pm CLINICAL HISTORY: heel osteomyelitis COMPARISON: No comparisons TECHNIQUE: Multiplanar imaging of the right foot performed using T1 weighted, T1 fat saturation, T2 fat saturation and T2 stir sequencing. FINDINGS: Hypointense T1 and hyperintense T2 signal are present in the posterior inferior aspect of the calcaneus. Serpiginous signal abnormalities extend more centrally into the body of the calcaneus. Posterior cortical thinning is present. No nir destruction of the cortex confirmed. No other suspicious or significant signal abnormality in the bones at the ankle joint. Posterior soft tissue wound is present. Little soft tissue identifiable covering the calcaneus. Plant ar and Achilles tendons are intact without suspicious signal abnormality. No abscess or drainable fluid collection in the soft tissues. IMPRESSION: Osteomyelitis of the posterior inferior most aspect of the calcaneus.
[2019-08-09] MEDS: ALBUTEROL 2.5 MG/3 ML NEB SOL IH SCH (19:59)
[2019-08-09] MEDS: IPRATROPIUM BROM 0.5MG/2.5ML IH SCH (19:59)
[2019-08-09] MEDS: JUVEN PACKET PO SCH (21:00)
[2019-08-09] MEDS: TRAZODONE 50 MG TABLET PO SCH (21:53)
[2019-08-09] MEDS: DONEPEZIL HCL 5 MG TAB PO SCH (21:55)
[2019-08-10] MEDS: ALBUTEROL 2.5 MG/3 ML NEB SOL IH SCH ×4 (01:10→19:45)
[2019-08-10] MEDS: IPRATROPIUM BROM 0.5MG/2.5ML IH SCH ×4 (01:10→19:45)
[2019-08-10] MEDS: NACHLORIDE 0.45% 1,000 ML IV SCH ×2 (01:20→08:50)
[2019-08-10 06:33] LABS: Absolute Lymphocytes (CBC) 0.7 K/uL (0.7-4.9); Basophils % 0.8 % (0-1.3); Hematocrit 27.8 % (39.6-49.0); Lymphocytes % 4.9 % (15.3-44.8); MPV 7.8 fL (7.6-11.3)
[2019-08-10 06:46] LABS: Albumin 1.7 g/dL (3.4-5.0); Magnesium 1.9 mg/dL (1.8-2.4); Phosphorus 2.7 mg/dL (2.5-4.9); Potassium 3.6 mmol/L (3.5-5.1)
[2019-08-10] MEDS ORDERED: POTASSIUM CL SA 10 MEQ TAB PO ONE (07:02)
[2019-08-10] MEDS: INSULIN -REGULAR HUMAN 50 UNIT/0.5 ML ML SQ SCH ×4 (07:30→21:54)
[2019-08-10] MEDS: GLIMEPIRIDE 2 MG TABLET PO SCH (08:50)
[2019-08-10] MEDS: LOSARTAN POTASSIUM 50 MG TABLET PO SCH ×2 (08:51→21:53)
[2019-08-10] MEDS: DOCUSATE NA 100 MG CAP PO SCH ×2 (08:51→21:53)
[2019-08-10] MEDS: QUETIAPINE 25 MG TAB PO SCH ×2 (08:51→21:53)
[2019-08-10] MEDS: SERTRALINE HCL 50 MG TAB PO SCH (08:51)
[2019-08-10] MEDS: PANTOPRAZOLE 40MG TABLET PO SCH (08:51)
[2019-08-10] MEDS: ENOXAPARIN 30 MG/0.3 ML SQ SCH (08:52)
[2019-08-10] MEDS: JUVEN PACKET PO SCH ×2 (08:52→21:00)
[2019-08-10] MEDS: carvediloL 25 MG TAB PO SCH ×2 (09:01→21:53)
--- NOTE | 2019-08-10 10:32 | PN ---
Date of Progress Note: 08/10/2019 Subjective: Patient is awake, alert. No complaint. Vital signs stable, afebrile. Laboratory Data: Reviewed. White count is 13.9 with a left shift. Chemistry reviewed. Objective: Vital Signs: Stable. He is afebrile. Skin: Examination of the wound reveals mostly nonviable tissue. There is no purulence. There is st ill erythema around it. Assessment: Status post debridement of right heel infected wound with osteomyelitis as per the MRI. Recommendations: Discussed the case with Dr. Lopez. I think the best option for this patient given his peripheral vascular disease and prolonged issues with managing this heel without healing over the last several months, best option would be for a right below-knee amputation. Patient will discuss t he case with his and let us know. Once he does agree, we will proceed with right below-knee amp utation. Continue antibiotics as ordered. /MODL Voice ID: [id number] Report ID: [id number]
[2019-08-10] MEDS: CEFEPIME/SWI 1gm 10 ML IVP SCH (11:15)
--- NOTE | 2019-08-10 11:41 | PN ---
Date of Progress Note: 08/10/2019 Patient was admitted with osteomyelitis. Patient found to have osteomyelitis on the right heel status post debridement yesterday. Culture was sent. Patient had a culture last week as outpatient. Blood culture was negative. Currently, patient more awake. No fever. Physical Examination: Vital Signs: Blood pressure 127/65, pulse of 80, afebrile. Chest: Clear to auscultation. Heart: S1, S2. Regular. Abdomen: Soft, nontender. Extremities: Ulcer on the right heel. Neuro: Alert. No focal. Laboratory Data: WBC 13.9, H and H 8.9/27.8, platelets 469. Sodium 137, potassium 3.6, bicarb 27, BUN 40, creatinine 4.2, calcium 8.5, phosphorus 1.9, albumin 1.7, magnesium 1.9. Current Medications: The patient on include: 1. Cefepime. 2. Vancomycin. 3. KCl. 4. Lovenox. 5. Epogen. 6. Losartan 50 b.i.d. 7. Carvedilol 25 b.i.d. 8. Zoloft. 9. Trazodone. 10. Pantoprazole. 11. Glimepiride. 12. Insulin. 13. Normal saline at 30 per hour. Assessment And Plan: 1. End-stage renal disease with over volume status post dialysis yesterday, recovered, resolved. Continue dialysis Wednesday, Wednesday, Wednesday. We will schedule the patient for dialysis tomorrow. 2. Secondary hyperpara. I do not see the need for binder right now. 3. Hypokalemia. Patient was dialyzed on high-potassium bath. We will follow up. 4. Anemia of chronic kidney disease. Continue erythropoiesis-stimulating agent. 5. Alkalosis secondary to renal failure. Going to be taken care with the dialysis. 6. Osteomyelitis, status post debridement. Seen by Infectious Disease. Recommended continue current treatment for 6 weeks. We will discuss with surgery regarding the amputation. Family not in favor of the amputation. Requesting a second opinion. We will follow up with the Primary. 7. Diabetes as by Primary. KWADWO/MARY Voice ID: [id number] Report ID: [id number] ANAT
--- NOTE | 2019-08-10 16:25 | P.PN ---
Date of Service: 08/10/19 Subjective: The patient is a 68-year-old male with past medical history of hypertension, secondary hyperparathyroidism, end-stage renal disease on HD, congestive heart failure. Patient was admitted to [facility] for right foot infection and found to have osteomyelitis to right heel which i was consulted for. Patient examined at bedside. Patient denies nausea, shortness of breath, fever and diarrhea. Patient agitated and uncooperative. Objective: Temp Pulse Resp BP Pulse Ox 97.6 F 72 15 138/66 98 08/10/19 12:00 08/10/19 12:00 08/10/19 12:00 08/10/19 12:00 08/10/19 12:00 08/10/19 15:45: POC Glucose 160 H 08/10/19 11:16: POC Glucose 247 H 08/10/19 07:37: POC Glucose 146 H 08/10/19 06:21: Sodium 137, Potassium 3.6, Chloride 101, Carbon Dioxide 27, BUN 40 H D, Creatinine 4.21 H, Estimated GFR 14 L, Glucose 155 H, Calcium 8.5, Phosphorus 2.7, Magnesium 1.9 D, Albumin 1.7 L 08/10/19 06:21: WBC 13.9 H, RBC 3.10 L, Hgb 8.9 L, Hct 27.8 L, MCV 89.6, MCH 28.8, MCHC 32.2, RDW 17.5 H, Plt Count 469 H, MPV 7.8, Neutrophils % 84.3 H, Lymphocytes % 4.9 L, Monocytes % 7.4, Eosinophils % 2.6, Basophils % 0.8, Absolute Neutrophils 11.7 H, Absolute Lymphocytes 0.7, Absolute Monocytes 1.0, Absolute Eosinophils 0.4, Absolute Basophils 0.1 08/09/19 20:57: POC Glucose 249 H ROS: General: Awake, Agitated, lying in bed CV: S1, S2 RESP: Clear to auscultation, on 2L NC ABD: Flat, soft, nontender Extremities: 1+ pedal pulses, no edema Skin: Right foot unstageable ulcer with large amount of slough and necrotic tissue and strong odor. Right great toe with black discoloration. Onychomycosis to bilateral feet. Assessment and plan: Osteomyelitis right heel s/p I&D 08/08 Leukocytosis, Blood cultures show no growth to date Wound cultures positive for 4+ gram negative rods Antibiotic treatment Cefepime and Vancomycin, recommend for total of 6 weeks Recommend possible LTAC facility Spoke with the patient about the possibility of sepsis and worsening infection and the need for amputation, Patient states he wants another opinion Will continue to monitor Patient discussed with Dr. Cho
[2019-08-10] MEDS: TRAZODONE 50 MG TABLET PO SCH (21:53)
[2019-08-10] MEDS: DONEPEZIL HCL 5 MG TAB PO SCH (21:53)
--- NOTE | 2019-08-11 01:09 | PN ---
Subjective: Mr. Reynaga is looking better, feeling better, getting stronger. Denies chest pain, anne marie sea, vomiting. Physical Examination: Vital Signs: Blood pressure 129/66, pulse is 68, temperature 97.1. HEENT: No JVD. No carotid bruits. Chest: Clear Heart: Regular. Abdomen: No guarding, no rebound, no rigidity. Extremities: Left heel ulcer is severely infected with very putrid smelling discharge suggestive of anaerobic infection. Investigations: Osteomyelitis detected on left calcaneum. White count is coming down to 14,000. Assessment And Planning: Severe osteomyelitis, which happened while he was on antibiotics for 4-6 we eks. He has been in the hospital for about 4 months out of the last 4-1/2 months going through care under infectious disease specialist for persistent bacteremia, which is possibly coming from the heel ulcer, which has no idea about this infection for a long time. This was in [facility]. The p atient developed an infection and heel necroses even being on antibiotics, so I suspect we will need amputation at this point for failure of treatment. His general condition is poor and he is on dialys is every other day. He is not a great candidate for hyperbaric medicine treatment with possibility o f poor tolerance of the hyperbaric treatment itself. YOSELYN/MODL Voice ID: [id number] Report ID: [id number]
[2019-08-11] MEDS: IPRATROPIUM BROM 0.5MG/2.5ML IH SCH ×4 (01:15→19:50)
[2019-08-11] MEDS: ALBUTEROL 2.5 MG/3 ML NEB SOL IH SCH ×4 (01:15→19:50)
[2019-08-11 06:40] LABS: Absolute Lymphocytes (CBC) 0.7 K/uL (0.7-4.9); Basophils % 0.6 % (0-1.3); Hematocrit 29.7 % (39.6-49.0); Lymphocytes % 5.5 % (15.3-44.8); MPV 8.1 fL (7.6-11.3); RBC Red Blood Cell Count 3.27 M/uL (4.33-5.43)
[2019-08-11 07:12] LABS: Albumin 1.8 g/dL (3.4-5.0); Magnesium 2.2 mg/dL (1.8-2.4); Phosphorus 3.8 mg/dL (2.5-4.9); Potassium 3.8 mmol/L (3.5-5.1)
[2019-08-11] MEDS: INSULIN -REGULAR HUMAN 50 UNIT/0.5 ML ML SQ SCH ×4 (07:30→21:47)
[2019-08-11] MEDS: GLIMEPIRIDE 2 MG TABLET PO SCH (07:54)
[2019-08-11] MEDS: carvediloL 25 MG TAB PO SCH ×2 (07:56→21:48)
[2019-08-11] MEDS: LOSARTAN POTASSIUM 50 MG TABLET PO SCH ×2 (07:57→21:49)
[2019-08-11] MEDS: ENOXAPARIN 30 MG/0.3 ML SQ SCH (07:57)
[2019-08-11] MEDS: JUVEN PACKET PO SCH ×2 (07:57→21:50)
[2019-08-11] MEDS: CEFEPIME/SWI 1gm 10 ML IVP SCH (07:57)
[2019-08-11] MEDS: AMLODIPINE 5 MG TAB PO SCH (07:58)
[2019-08-11] MEDS: QUETIAPINE 25 MG TAB PO SCH ×2 (07:58→21:48)
[2019-08-11] MEDS: PANTOPRAZOLE 40MG TABLET PO SCH (07:58)
[2019-08-11] MEDS: DOCUSATE NA 100 MG CAP PO SCH ×2 (07:58→21:48)
[2019-08-11] MEDS: SERTRALINE HCL 50 MG TAB PO SCH (07:58)
--- NOTE | 2019-08-11 09:10 | P.PN ---
Date of Service: 08/11/19 Subjective: The patient is a 68-year-old male with past medical history of hypertension, secondary hyperparathyroidism, end-stage renal disease on HD, congestive heart failure. Patient was admitted to [facility] for right foot infection and found to have osteomyelitis to right heel which I was consulted for. Patient examined at bedside. Patient denies nausea, shortness of breath, fever and diarrhea. Patient agrees to have amputation of right foot. Objective: Temp Pulse Resp BP Pulse Ox 97.5 F 78 18 167/78 H 95 08/11/19 08:00 08/11/19 08:00 08/11/19 08:00 08/11/19 08:00 08/11/19 08:00 08/11/19 07:21: POC Glucose 204 H 08/11/19 06:10: Sodium 137, Potassium 3.8, Chloride 100, Carbon Dioxide 26, BUN 50 H, Creatinine 5.40 H* D, Estimated GFR 11 L, Glucose 229 H, Calcium 8.3 L, Phosphorus 3.8, Magnesium 2.2, Albumin 1.8 L 08/11/19 06:10: WBC 13.6 H, RBC 3.27 L, Hgb 9.3 L, Hct 29.7 L, MCV 90.7, MCH 28.4, MCHC 31.3 L, RDW 17.9 H, Plt Count 536 H, MPV 8.1, Neutrophils % 85.0 H, Lymphocytes % 5.5 L, Monocytes % 6.3, Eosinophils % 2.6, Basophils % 0.6, Absolute Neutrophils 11.5 H, Absolute Lymphocytes 0.7, Absolute Monocytes 0.9, Absolute Eosinophils 0.4, Absolute Basophils 0.1 08/10/19 19:43: POC Glucose 191 H 08/10/19 15:45: POC Glucose 160 H 08/10/19 11:16: POC Glucose 247 H ROS: General: Awake, Alert, lying in bed CV: S1, S2 RESP: Clear to auscultation, on 2L NC ABD: Flat, soft, nontender Extremities: 1+ pedal pulses, no edema Skin: Right foot unstageable ulcer with dressing CDI. Right great toe with black discoloration. Onychomycosis to bilateral feet. Assessment and plan: Osteomyelitis right heel s/p I&D 08/08 Leukocytosis, Blood cultures show no growth to date Wound cultures positive for Proteus Mirabilis Antibiotic treatment Cefepime and Vancomycin, recommend for total of 6 weeks Recommend possible LTAC facility Spoke with the patient about the possibility of sepsis and worsening infection and the need for amputation, Patient states he is going to have the amputation Will continue to monitor Patient examined and discussed with Dr. Cho
[2019-08-11] MEDS ORDERED: NA CHLORIDE 0.9% 1,000 ML ONE (09:19)
--- NOTE | 2019-08-11 09:24 | PN ---
Date of Progress Note: 08/11/2019 Subjective: Patient spoke with his and I spoke with his as well as Dr. Lopez yesterday, an d they all agreed that the patient would benefit from a right below-knee amputation. Objective: His vitals are stable. He is afebrile. On physical exam, no significant change. Assessment: Infected wound, right heel, with osteomyelitis secondary to severe peripheral vascular d isease pressure, diabetes, end-stage renal disease. Recommendations: As patient has failed IV antibiotics and medical treatment for the last several mon ths, we will proceed with a below-knee amputation. Patient and family understand the risks, benefits , and alternatives and agrees to procedure. /MODL Voice ID: [id number] Report ID: [id number]
[2019-08-11] MEDS ORDERED: FENTANYL CITR 100 MCG/2 ML ONE (09:34)
[2019-08-11] MEDS ORDERED: LIDOCAINE 2% MPF 5 ML VIAL ONE ×2 (09:34)
[2019-08-11] MEDS ORDERED: MIDAZOLAM HCL 2 MG/2 ML INJ ONE (09:34)
[2019-08-11] MEDS ORDERED: propofoL 200 MG/20 ML VIAL IV ONE (09:34)
[2019-08-11] MEDS ORDERED: MORPHINE SULFATE/PF 1 MG/ML (10 ML AMP) ONE (10:04)
--- NOTE | 2019-08-11 11:25 | P.OP ---
Rehabilitation Center Manager: Sylvia IRVIN Preoperative diagnosis: Non-healing wound with Osteo and severe PVD RLE Postoperative diagnosis: same Primary procedure: Right BKA Anesthesia: Spinal Estimated blood loss: 50 cc Specimen: Right Leg Findings: as above Complications: None Transferred to: Recovery Room Condition: Good
--- NOTE | 2019-08-11 21:33 | OP ---
Date of Procedure: 08/11/2019 Surgeon: Toro Gutierrez MD V Belt Builder: BRANDEE Ray. Preoperative Diagnosis: Right heel nonhealing wound with severe peripheral vascular disease and oste omyelitis, failed medical management. Postoperative Diagnoses: Right heel nonhealing wound, with severe peripheral vascular disease and os teomyelitis, failed medical management. Procedure: Right below-knee amputation. Estimated Blood Loss: 50 cc. Specimens: Right leg. Findings: As above. Anesthesia: Spinal. Complications: None. Disposition: Patient tolerated the procedure in stable condition, taken to Recovery in good general condition. Procedure In Detail: Patient was brought to the OR and placed in supine position after spinal anesth esia was begun and then prepped and draped in the usual sterile fashion. Then, 4 fingerbreadths belo w the tibial tuberosity, a transverse incision was made. Posterior flap was created. The neurovascu lar bundle identified, divided, and tied with 2-0 and 0 silk ties and 0 silk suture ligature as neede d. Cautery used to stop the bleeding as well. Muscle divided. Tibia and fibula identified and divi ded. Rongeur used to smoothen out the rough edges, leg removed, sent to Pathology. Wound irrigated. Bleeding controlled with cautery. 2-0 chromic used to approximate the fascia and 2-0 chromic and 3 -0 chromic used to reapproximate the subcutaneous tissue. Dutton used to close the skin. Sterile d ressing was applied. Patient was awakened and taken to Recovery in good general condition. /MODL Voice ID: [id number] Report ID: [id number]
[2019-08-11] MEDS: TRAZODONE 50 MG TABLET PO SCH (21:48)
[2019-08-11] MEDS: DONEPEZIL HCL 5 MG TAB PO SCH (21:49)
[2019-08-12] MEDS: VANCOMYCIN/NS 1 gm 1 GM/250 ML BAG IV SCH (01:03)
[2019-08-12] MEDS: IPRATROPIUM BROM 0.5MG/2.5ML IH SCH ×4 (01:15→20:00)
[2019-08-12] MEDS: ALBUTEROL 2.5 MG/3 ML NEB SOL IH SCH ×4 (01:15→20:00)
--- NOTE | 2019-08-12 02:40 | PN ---
Subjective: Mr. Reynaga is stable, lying in the bed, comfortable, lucid. Physical Examination: Chest: Clear. Heart: Regular. Abdomen: No guarding, no rebound, no rigidity. Extremities: Right-sided heel has gangrenous changes, putrid smell, anaerobic infection, possible os teomyelitis. Assessment/plan: Osteomyelitis, right heel. Failed IV antibiotics, which were given for different r karyn, at least given for last 3 months and he has failed antibiotics. His condition is poor. Dr. Ruddy ambrocio suspect that he will not heal in his heel even with further antibiotics for 2 months and unfortu nately to save his life, to save from sepsis, which has happened recurrently in last 3 months, for th is gentleman amputation is only choice. YOSELYN/MARY Voice ID: [id number] Report ID: [id number]
[2019-08-12 04:57] LABS: Absolute Lymphocytes (CBC) 0.8 K/uL (0.7-4.9); Basophils % 0.8 % (0-1.3); Hematocrit 26.8 % (39.6-49.0); Lymphocytes % 6.9 % (15.3-44.8); MPV 7.9 fL (7.6-11.3); RBC Red Blood Cell Count 2.98 M/uL (4.33-5.43)
[2019-08-12 05:11] LABS: Albumin 1.7 g/dL (3.4-5.0); Potassium 4.2 mmol/L (3.5-5.1)
[2019-08-12 05:22] LABS: Blood Morphology Comment NOTED (NOT SEEN); Platelet Estimate INCR
[2019-08-12 05:23] LABS: Elliptocytes 1+; Hypochromasia 1+; Teardrop Cell 1+
[2019-08-12] MEDS: INSULIN -REGULAR HUMAN 50 UNIT/0.5 ML ML SQ SCH ×4 (08:36→21:28)
[2019-08-12] MEDS: LOSARTAN POTASSIUM 50 MG TABLET PO SCH ×2 (08:38→21:28)
[2019-08-12] MEDS: CEFEPIME/SWI 1gm 10 ML IVP SCH (08:38)
[2019-08-12] MEDS: AMLODIPINE 5 MG TAB PO SCH (08:38)
[2019-08-12] MEDS: QUETIAPINE 25 MG TAB PO SCH ×2 (08:39→21:27)
[2019-08-12] MEDS: ENOXAPARIN 30 MG/0.3 ML SQ SCH (08:39)
[2019-08-12] MEDS: PANTOPRAZOLE 40MG TABLET PO SCH (08:39)
[2019-08-12] MEDS: GLIMEPIRIDE 2 MG TABLET PO SCH (08:39)
[2019-08-12] MEDS: carvediloL 25 MG TAB PO SCH ×2 (08:39→21:27)
[2019-08-12] MEDS: SERTRALINE HCL 50 MG TAB PO SCH (08:39)
[2019-08-12] MEDS: DOCUSATE NA 100 MG CAP PO SCH ×2 (08:39→21:27)
[2019-08-12] MEDS: JUVEN PACKET PO SCH ×2 (08:40→21:28)
--- NOTE | 2019-08-12 14:33 | PN ---
Date of Progress Note: 08/12/2019 Subjective: The patient is awake, alert. No complaints. Vital signs are stable, afebrile. Laboratory Data: Laboratory data reviewed. H and H are 8.6 and 26.8. Patient had right heel growing out Proteus, Klebsiella, and MRSA. Blood cultures are positive. Assessment: Status post right [id number] sepsis. Recommendations: IV antibiotics per Dr. Lopez, physical therapy, rehab evaluation. /MODL Voice ID: [id number] Report ID: [id number]
--- NOTE | 2019-08-12 16:40 | PN ---
Subjective: Mr. Reynaga is postop day #1 for right BKA for incurable osteomyelitis and septic shock, looking a lot better now. We will continue antibiotics for 2 more weeks because patient has bactere yanci with this infection also. End-stage renal disease on dialysis by Dr. Celaya. Patient is currently stable. Referred to rehab . YOSELYN/MODL Voice ID: [id number] Report ID: [id number]
[2019-08-12] MEDS: TRAZODONE 50 MG TABLET PO SCH (21:28)
[2019-08-12] MEDS: DONEPEZIL HCL 5 MG TAB PO SCH (21:28)
--- NOTE | 2019-08-13 01:19 | PN ---
Date of Progress Note: 08/12/2019 Chief Complaint: End-stage renal disease on dialysis. Patient is undergoing dialysis 3 times per week. He underwent dialysis yesterday. Patient was found to have hypokalemia in dialysis. Electrolytes were adjusted accordingly. Patient has osteomyelitis . He is admitted for right heel osteomyelitis status post debridement. Cultures were sent. Patient denied fever. He is on antibiotics. Blood cultures were negative. Review of Systems: Denies new complaints. Denies PND, orthopnea. Physical Examination: Lungs: Clear to auscultation bilaterally. Heart: S1, S2. ABDOMEN: Soft, benign. Extremities: Dressing in place. Laboratory Data: WBC 13.99, albumin 1.7, phosphorus 1.9, calcium 8.5, creatinine 4.2, BUN 40. Impression And Plan: 1.End-stage renal disease. Continue dialysis on Wednesday, Wednesday, Wednesday. Monitor electrolytes. Avoid nephrotoxic medication and continue low-potassium diet. 2.Secondary hyperparathyroidism. At this point, does not have hyperphosphatemia and binders on hold . 3.Hypokalemia. Patient received a special dialysis staff to control hypokalemia and monitor intake and adjust diet accordingly although patient will require renal diet. 4.Anemia due to chronic kidney disease. Continue DERREK. EB/MODL Voice ID: [id number] Report ID: [id number]
[2019-08-13] MEDS: IPRATROPIUM BROM 0.5MG/2.5ML IH SCH ×4 (01:40→20:18)
[2019-08-13] MEDS: ALBUTEROL 2.5 MG/3 ML NEB SOL IH SCH ×4 (01:40→20:18)
[2019-08-13] MEDS: ONDANSETRON 4 MG/2 ML VIAL IV PRN (03:45)
[2019-08-13 07:43] LABS: Absolute Lymphocytes (CBC) 0.5 K/uL (0.7-4.9); Basophils % 0.4 % (0-1.3); Hematocrit 27.5 % (39.6-49.0); Lymphocytes % 3.7 % (15.3-44.8); MPV 8.1 fL (7.6-11.3); RBC Red Blood Cell Count 3.05 M/uL (4.33-5.43)
[2019-08-13 07:55] LABS: Albumin 1.7 g/dL (3.4-5.0); Phosphorus 3.6 mg/dL (2.5-4.9); Potassium 4.5 mmol/L (3.5-5.1)
[2019-08-13] MEDS: INSULIN -REGULAR HUMAN 50 UNIT/0.5 ML ML SQ SCH ×4 (08:10→21:00)
[2019-08-13] MEDS: GLIMEPIRIDE 2 MG TABLET PO SCH (08:11)
[2019-08-13] MEDS: DOCUSATE NA 100 MG CAP PO SCH ×2 (08:11→21:23)
[2019-08-13] MEDS: ENOXAPARIN 30 MG/0.3 ML SQ SCH (08:11)
[2019-08-13] MEDS: PANTOPRAZOLE 40MG TABLET PO SCH (08:11)
[2019-08-13] MEDS: SERTRALINE HCL 50 MG TAB PO SCH (08:11)
[2019-08-13] MEDS: LOSARTAN POTASSIUM 50 MG TABLET PO SCH ×2 (08:11→21:23)
[2019-08-13] MEDS: QUETIAPINE 25 MG TAB PO SCH ×2 (08:11→21:23)
[2019-08-13] MEDS: AMLODIPINE 5 MG TAB PO SCH (08:11)
[2019-08-13] MEDS: JUVEN PACKET PO SCH ×2 (08:12→21:30)
[2019-08-13] MEDS: carvediloL 25 MG TAB PO SCH ×2 (08:12→21:23)
[2019-08-13] MEDS: CEFEPIME/SWI 1gm 10 ML IVP SCH (08:12)
--- NOTE | 2019-08-13 11:45 | P.PN ---
Subjective Date of Service: 08/13/19 Chief Complaint: R FOOT GANGRENE Subjective: Improving MR. LOO IS A DIABETIC WHO WAS ON SNF ANTIBIOTIC FOR POSITIVE BLOOD CULTURES GIVEN BY MEDICAL CONCIERGE. THE SOURCE WAS UNCLEAR. HE DEVELOPED THIS ULCER WHILE ON ANTIBIOTICS AND GOT WORSE WHILE BEING ON DAPTOMYCIN IV. HE IS BETTER TODAY HE IS GETTING ANTIBIOTICS IV SINCE YESTERDAY BY ME. MR LOO IS DOING BETTER. HE IS POST OP R BKA NOW. Review of Systems 10-point ROS is otherwise unremarkable Integumentary: As per HPI Physical Examination - Vital Signs Temperature: 97.4 F Blood Pressure: 153/70 Pulse: 88 Respirations: 18 Pulse Ox (%): 97 - Physical Exam General: Alert, In no apparent distress HEENT: Atraumatic, PERRLA, EOMI Neck: Supple, JVD not distended Respiratory: Clear to auscultation bilaterally, Normal air movement Cardiovascular: Regular rate/rhythm, Normal S1 S2 Gastrointestinal: Normal bowel sounds, No tenderness Musculoskeletal: No tenderness Integumentary: No rashes Neurological: Normal speech, Normal tone, Normal affect Lymphatics: No axilla or inguinal lymphadenopathy - Studies Laboratory Data (last 24 hrs) 08/13/19 06:19: Sodium 137, Potassium 4.5, BUN 64 H D, Creatinine 5.24 H* D, Glucose 219 H, Phosphorus 3.6, Magnesium 2.0 08/13/19 06:19: WBC 13.7 H D, Hgb 8.7 L, Hct 27.5 L, Plt Count 505 H Microbiology Data (last 24 hrs): 08/09/19 08:56 Wound - Right Heel Gram Stain - Final 08/09/19 08:56 Wound - Right Heel Culture & Sensitivity - Final Proteus Mirabilis Klebsiella Pneumoniae Meth Resistant Staph Aureus Medications List Reviewed: Yes Assessment And Plan - Current Problems (Diagnosis) (1) Gangrene of right foot Current Visit: Yes Status: Chronic Plan: FAILED TO RECOVER BEING ON ANTIBIOTICS. I SUSPECT AND AGREE WITH DR. KAUR THAT HE WILL NOT RECOVER WITH MORE ANTIBIOTICS IV. HE WILL NEED AMPUTATION TO SURVIVE. I TALKED TO AND SHE UNDERSTANDS. SP BKA DAY 3. STABLE (2) Diabetes Current Visit: Yes Status: Chronic Plan: WILL FU A1C RTN. Qualifiers: Diabetes mellitus type: type 2 (3) CKD (chronic kidney disease) stage 5, GFR less than 15 ml/min Current Visit: No Status: Chronic Plan: ON HD EVERY OTHER DAY. (4) Gram positive sepsis Current Visit: Yes Status: Acute Plan: ONE CULTURE IS POSITIVE. HE IS ALREADY ON VANCOMYCIN. (5) Positive culture findings in wound Current Visit: Yes Status: Acute Plan: ADD LEVAQUIN FOR ALL 3 BACTERIA. HE ALREADY HAD BKA FOR THIS WOUND THAT GREW CULTURE. I WILL STILL CONTINUE LEVAQUIN FOR 10 DAYS HE HAS LEUKOCYTOSIS. (6) HTN (hypertension) Current Visit: Yes Status: Acute Plan: RAISE NORVASC TO 10 MG DAILY. Qualifiers: Hypertension type: essential hypertension Qualified Code(s): I10 - Essent ial (primary) hypertension
--- NOTE | 2019-08-13 14:07 | PN ---
Date of Progress Note: 08/13/2019 Subjective: Patient is awake, alert, somewhat somnolent. No pain. Objective: Vital Signs: Stable. He is afebrile. Extremities: Dressing clean, dry, and intact. Laboratory Data: Laboratory data reviewed. Still has a slightly elevated white count. H and H are stable. Assessment: Status post right below-knee amputation. Recommendations: Physical therapy and rehab are ordered and antibiotics. Patient clinically stable. /MODL Voice ID: [id number] Report ID: [id number]
[2019-08-13] MEDS: DONEPEZIL HCL 5 MG TAB PO SCH (21:23)
[2019-08-13] MEDS: TRAZODONE 50 MG TABLET PO SCH (21:23)
--- NOTE | 2019-08-14 00:14 | PN ---
Date of Progress Note: 08/13/2019 Chief Complaint: End-stage renal disease, on dialysis. Patient is undergoing dialysis 3 times per week. He underwent dialysis on Wednesday. Patient was found to have hypokalemia. Electrolytes were adjusted and potassium level improved. Review of Systems: Denies new complaints. Physical Examination: Lungs: Clear to auscultation bilaterally. Heart: S1, S2. Abdomen: Soft, benign, nontender. Extremities: Dressing in place. Assessment And Plan: 1. End-stage renal disease. Next dialysis on Wednesday. Monitor electrolytes. Adjust treatment according to lab work. 2. Secondary hyperparathyroidism. At this point, patient does not require binders. 3. Hyperphosphatemia has been controlled and phosphorus level a below target range. Encouraged diet as tolerated. 4. Hypokalemia. Patient received special bath with dialysis. Continue treatment according to lab results. 5. Anemia, chronic kidney disease. Continue DERREK. SHARON/MODCameron Voice ID: [id number] Report ID: [id number] ANAT
[2019-08-14] MEDS: ALBUTEROL 2.5 MG/3 ML NEB SOL IH SCH ×4 (01:05→19:25)
[2019-08-14] MEDS: IPRATROPIUM BROM 0.5MG/2.5ML IH SCH ×4 (01:05→19:25)
[2019-08-14 06:52] LABS: Absolute Lymphocytes (CBC) 0.9 K/uL (0.7-4.9); Basophils % 1.3 % (0-1.3); Hematocrit 26.9 % (39.6-49.0); Lymphocytes % 9.4 % (15.3-44.8); MPV 7.9 fL (7.6-11.3); RBC Red Blood Cell Count 2.95 M/uL (4.33-5.43)
[2019-08-14 07:05] LABS: Albumin 1.7 g/dL (3.4-5.0); Phosphorus 4.4 mg/dL (2.5-4.9); Potassium 4.7 mmol/L (3.5-5.1)
[2019-08-14] MEDS: INSULIN -REGULAR HUMAN 50 UNIT/0.5 ML ML SQ SCH ×4 (07:30→21:00)
[2019-08-14] MEDS: AMLODIPINE 5 MG TAB PO SCH (09:00)
[2019-08-14] MEDS: LOSARTAN POTASSIUM 50 MG TABLET PO SCH ×2 (09:00→21:37)
[2019-08-14] MEDS: carvediloL 25 MG TAB PO SCH ×2 (09:00→21:37)
[2019-08-14] MEDS: levoFLOXacin 250 MG TAB PO SCH (09:18)
[2019-08-14] MEDS: GLIMEPIRIDE 2 MG TABLET PO SCH (09:18)
[2019-08-14] MEDS: SERTRALINE HCL 50 MG TAB PO SCH (09:18)
[2019-08-14] MEDS: DOCUSATE NA 100 MG CAP PO SCH ×2 (09:18→21:37)
[2019-08-14] MEDS: PANTOPRAZOLE 40MG TABLET PO SCH (09:18)
[2019-08-14] MEDS: QUETIAPINE 25 MG TAB PO SCH ×2 (09:18→21:37)
[2019-08-14] MEDS: JUVEN PACKET PO SCH ×2 (09:19→21:00)
[2019-08-14] MEDS: HYDROCODONE/APAP 7.5/325 MG TAB PO PRN ×2 (12:52→21:52)
--- NOTE | 2019-08-14 16:07 | P.PN ---
Date of Service: 08/14/19 Subjective: The patient is a 68-year-old male with past medical history of hypertension, secondary hyperparathyroidism, end-stage renal disease on HD, congestive heart failure. Patient was admitted to [facility] for right foot infection and found to have osteomyelitis to right heel which I was consulted for. Patient examined at bedside. Patient denies nausea, shortness of breath, fever and diarrhea. Patient agrees to have amputation of right foot. Objective: Temp Pulse Resp BP Pulse Ox 97.0 F 76 19 140/67 94 08/14/19 12:00 08/14/19 12:00 08/14/19 12:52 08/14/19 12:00 08/14/19 12:52 Laboratory Last Values WBC 10.0 K/uL (4.3-10.9) D 08/14/19 06:24 RBC 2.95 M/uL (4.33-5.43) L 08/14/19 06:24 Hgb 8.5 g/dL (13.6-17.9) L 08/14/19 06:24 Hct 26.9 % (39.6-49.0) L 08/14/19 06:24 MCV 91.2 fL (80-100) 08/14/19 06:24 MCH 28.8 pg (27.0-35.0) 08/14/19 06:24 MCHC 31.6 g/dL (32.0-36.0) L 08/14/19 06:24 RDW 17.5 % (12.1-15.2) H 08/14/19 06:24 Plt Count 514 K/uL (152-406) H 08/14/19 06:24 MPV 7.9 fL (7.6-11.3) 08/14/19 06:24 Neutrophils % 79.3 % (41.7-73.7) H 08/14/19 06:24 Lymphocytes % 9.4 % (15.3-44.8) L 08/14/19 06:24 Monocytes % 7.5 % (3.3-12.3) 08/14/19 06:24 Eosinophils % 2.5 % (0-4.4) 08/14/19 06:24 Basophils % 1.3 % (0-1.3) 08/14/19 06:24 Absolute Neutrophils 7.9 K/uL (1.8-8.0) 08/14/19 06:24 Segmented Neutrophils 83 % (40-80) H 08/12/19 04:35 Band Neutrophils 3 % (0-1) H 08/12/19 04:35 Absolute Lymphocytes 0.9 K/uL (0.7-4.9) 08/14/19 06:24 Lymphocytes 6 % (15-42) L 08/12/19 04:35 Monocytes 6 % (0-10) 08/12/19 04:35 Absolute Monocytes 0.8 K/uL (0.1-1.3) 08/14/19 06:24 Eosinophils 2 % (0-3) 08/12/19 04:35 Absolute Eosinophils 0.2 K/uL (0-0.5) 08/14/19 06:24 Absolute Basophils 0.1 K/uL (0-0.5) 08/14/19 06:24 Hypochromasia 1+ 08/12/19 04:35 Tear Drop Cells 1+ 08/12/19 04:35 Elliptocytes 1+ 08/12/19 04:35 Schistocytes 2+ 08/12/19 04:35 Morphology Comment Noted (NOT SEEN) 08/12/19 04:35 ESR Westergren 38 mm/HR (0-20) H 08/08/19 16:18 PT 15.3 SECONDS (9.5-12.5) H 08/08/19 16:18 INR 1.30 08/08/19 16:18 APTT 31.4 SECONDS (24.3-36.9) 08/08/19 16:18 Sodium 138 mmol/L (136-145) 08/14/19 06:24 Potassium 4.7 mmol/L (3.5-5.1) 08/14/19 06:24 Chloride 103 mmol/L (98-107) 08/14/19 06:24 Carbon Dioxide 24 mmol/L (21-32) 08/14/19 06:24 BUN 78 mg/dL (7-18) H 08/14/19 06:24 Creatinine 6.27 mg/dL (0.55-1.3) H* D 08/14/19 06:24 Estimated GFR 9 mL/min (=/>90) L 08/14/19 06:24 Glucose 121 mg/dL (74-106) H 08/14/19 06:24 POC Glucose 177 mg/dl (65-120) H 08/14/19 11:04 Hemoglobin A1c 7.5 % (4.2-6.3) H 08/08/19 16:18 Calcium 8.3 mg/dL (8.5-10.1) L 08/14/19 06:24 Phosphorus 4.4 mg/dL (2.5-4.9) 08/14/19 06:24 Magnesium 2.0 mg/dL (1.8-2.4) 08/13/19 06:19 Total Bilirubin 0.2 mg/dL (0.2-1.0) 08/08/19 16:18 Direct Bilirubin < 0.1 mg/dL (0-0.2) 08/08/19 16:18 AST 7 U/L (15-37) L 08/08/19 16:18 ALT 18 U/L (12-78) 08/08/19 16:18 Alkaline Phosphatase 115 U/L (45-117) 08/08/19 16:18 C-Reactive Protein 363.00 mg/L (<3.00) H 08/08/19 16:18 Serum Total Protein 6.8 g/dL (6.4-8.2) 08/08/19 16:18 Albumin 1.7 g/dL (3.4-5.0) L 08/14/19 06:24 Globulin 5.0 g/dL (2.3-3.5) H 08/08/19 16:18 Albumin/Globulin Ratio 0.4 (1.1-1.8) L 08/08/19 16:18 Vitamin B12 1170 pg/mL (193-986) H 08/08/19 16:18 25-OH Vitamin D Total 38.8 ng/mL (30-100) 08/08/19 16:18 TSH 2.380 uIU/mL (0.360-3.740) 08/08/19 16:18 Vancomycin Trough 9.9 ug/mL (5.0-20.0) 08/11/19 13:12 ROS: General: Awake, Alert, receiving dialysis CV: S1, S2 RESP: Clear to auscultation, on 2L NC ABD: Flat, soft, nontender Extremities: no edema Skin: Right BKA with jojo bandage wrap, CDI. Assessment and plan: Osteomyelitis, s/p right BKA Leukocytosis resolved Blood cultures show no growth to date Continue current treatment Recommend possible LTAC facility Patient discussed with Dr. Cho
[2019-08-14] MEDS ORDERED: VANCOMYCIN 1 GM/VIAL ONE (19:35)
[2019-08-14] MEDS ORDERED: NA CHLORIDE 0.9% 250 ML ONE (19:37)
[2019-08-14] MEDS: DONEPEZIL HCL 5 MG TAB PO SCH (21:37)
[2019-08-14] MEDS: TRAZODONE 50 MG TABLET PO SCH (21:37)
--- NOTE | 2019-08-14 22:25 | PN ---
Subjective: Mr. Reynaga is doing well. He is at times violent to the nurses. He refused for a reha b floor at this point. I will be referring him to a detention. Physical Examination: Vital signs: Blood pressure examination 140/67, pulse is 76, temperature 97.0. HEENT: No JVD. No carotid bruits. Chest: Clear. Heart: Regular. Extremities: Patient has right BKA. Laboratory Data: White count 10,000, hemoglobin 8.5, hematocrit 26. BUN 79, creatinine 6.27. Wound is positive for 3 bacteria, but the wound has gone now with amputation as described in previous notes . Assessment And Plannin.Right below-knee amputation, needing rehab, possible detention placement. Will consult the soc ial worker. 2.Diabetes mellitus, stable. 3.High blood pressure, stable. 4.Agitation and dementia. He is already on medication for control of this if possible. YOSELYN/MODL Voice ID: [id number] Report ID: [id number]
[2019-08-15] MEDS: IPRATROPIUM BROM 0.5MG/2.5ML IH SCH ×4 (02:35→19:50)
[2019-08-15] MEDS: ALBUTEROL 2.5 MG/3 ML NEB SOL IH SCH ×4 (02:35→19:50)
--- NOTE | 2019-08-15 03:26 | PN ---
Date of Progress Note: 08/14/2019 Chief Complaint: End-stage renal disease, on dialysis. Subjective: Patient is undergoing dialysis 3 times per week. He underwent dialysis today and on Wednesday. Review of Systems: Denies new complaints. Physical Examination: Lungs: Clear to auscultation bilaterally. Heart: S1, S2. Abdomen: Soft, benign. Extremities: Dressing in place. Impression And Plan: 1. End-stage renal disease. 2. Dialysis on Wednesday. Monitor electrolytes. Ajust ultrafiltration with hemodialysis according to fluid status. 3. Secondary hyperparathyroidism. Patient does not require binders. At this point, patient will continue renal diet with phosphorus modification according to phosphorus level. 4. Hypokalemia. Potassium level has improved. Monitor electrolytes. 5. Anemia due to chronic kidney disease. Continue DERREK. EB/MODL Voice ID: [id number] Report ID: [id number] MTDD
[2019-08-15 05:52] LABS: Absolute Lymphocytes (CBC) 0.7 K/uL (0.7-4.9); Basophils % 1.1 % (0-1.3); Hematocrit 26.4 % (39.6-49.0); MPV 7.6 fL (7.6-11.3); RBC Red Blood Cell Count 2.88 M/uL (4.33-5.43)
[2019-08-15] MEDS: INSULIN -REGULAR HUMAN 50 UNIT/0.5 ML ML SQ SCH ×4 (07:30→20:53)
[2019-08-15] MEDS: JUVEN PACKET PO SCH ×2 (09:00→20:37)
[2019-08-15] MEDS: SERTRALINE HCL 50 MG TAB PO SCH (09:26)
[2019-08-15] MEDS: LOSARTAN POTASSIUM 50 MG TABLET PO SCH ×2 (09:26→20:30)
[2019-08-15] MEDS: GLIMEPIRIDE 2 MG TABLET PO SCH (09:26)
[2019-08-15] MEDS: PANTOPRAZOLE 40MG TABLET PO SCH (09:26)
[2019-08-15] MEDS: levoFLOXacin 250 MG TAB PO SCH (09:26)
[2019-08-15] MEDS: QUETIAPINE 25 MG TAB PO SCH ×2 (09:26→20:30)
[2019-08-15] MEDS: DOCUSATE NA 100 MG CAP PO SCH ×2 (09:26→20:37)
[2019-08-15] MEDS: carvediloL 25 MG TAB PO SCH ×2 (09:27→20:31)
[2019-08-15] MEDS: AMLODIPINE 5 MG TAB PO SCH (09:27)
[2019-08-15] MEDS ORDERED: EPOETIN 4,000 UNIT/ML VIAL IV SCH (10:45)
[2019-08-15] MEDS: ONDANSETRON 4 MG/2 ML VIAL IV PRN ×2 (12:03→17:38)
--- NOTE | 2019-08-15 14:06 | P.PN ---
Date of Service: 08/15/19 Subjective: The patient is a 68-year-old male with past medical history of hypertension, secondary hyperparathyroidism, end-stage renal disease on HD, congestive heart failure. Patient was admitted to [facility] for right foot infection and found to have osteomyelitis to right heel which I was consulted for. Patient examined at bedside. Patient denies nausea, shortness of breath, fever and diarrhea. Patient is s/p right BKA. Objective: Temp Pulse Resp BP Pulse Ox 96.9 F 71 16 132/61 97 08/15/19 12:00 08/15/19 12:00 08/15/19 12:00 08/15/19 12:00 08/15/19 12:00 Laboratory Last Values WBC 8.0 K/uL (4.3-10.9) D 08/15/19 05:22 RBC 2.88 M/uL (4.33-5.43) L 08/15/19 05:22 Hgb 8.3 g/dL (13.6-17.9) L 08/15/19 05:22 Hct 26.4 % (39.6-49.0) L 08/15/19 05:22 MCV 91.7 fL (80-100) 08/15/19 05:22 MCH 29.0 pg (27.0-35.0) 08/15/19 05:22 MCHC 31.6 g/dL (32.0-36.0) L 08/15/19 05:22 RDW 17.5 % (12.1-15.2) H 08/15/19 05:22 Plt Count 467 K/uL (152-406) H 08/15/19 05:22 MPV 7.6 fL (7.6-11.3) 08/15/19 05:22 Neutrophils % 77.4 % (41.7-73.7) H 08/15/19 05:22 Lymphocytes % 9.0 % (15.3-44.8) L 08/15/19 05:22 Monocytes % 9.3 % (3.3-12.3) 08/15/19 05:22 Eosinophils % 3.2 % (0-4.4) 08/15/19 05:22 Basophils % 1.1 % (0-1.3) 08/15/19 05:22 Absolute Neutrophils 6.2 K/uL (1.8-8.0) 08/15/19 05:22 Segmented Neutrophils 83 % (40-80) H 08/12/19 04:35 Band Neutrophils 3 % (0-1) H 08/12/19 04:35 Absolute Lymphocytes 0.7 K/uL (0.7-4.9) 08/15/19 05:22 Lymphocytes 6 % (15-42) L 08/12/19 04:35 Monocytes 6 % (0-10) 08/12/19 04:35 Absolute Monocytes 0.7 K/uL (0.1-1.3) 08/15/19 05:22 Eosinophils 2 % (0-3) 08/12/19 04:35 Absolute Eosinophils 0.3 K/uL (0-0.5) 08/15/19 05:22 Absolute Basophils 0.1 K/uL (0-0.5) 08/15/19 05:22 Hypochromasia 1+ 08/12/19 04:35 Tear Drop Cells 1+ 08/12/19 04:35 Elliptocytes 1+ 08/12/19 04:35 Schistocytes 2+ 08/12/19 04:35 Morphology Comment Noted (NOT SEEN) 08/12/19 04:35 ESR Westergren 38 mm/HR (0-20) H 08/08/19 16:18 PT 15.3 SECONDS (9.5-12.5) H 08/08/19 16:18 INR 1.30 08/08/19 16:18 APTT 31.4 SECONDS (24.3-36.9) 08/08/19 16:18 Sodium 140 mmol/L (136-145) 08/15/19 05:22 Potassium 4.0 mmol/L (3.5-5.1) 08/15/19 05:22 Chloride 106 mmol/L (98-107) 08/15/19 05:22 Carbon Dioxide 27 mmol/L (21-32) 08/15/19 05:22 BUN 43 mg/dL (7-18) H D 08/15/19 05:22 Creatinine 4.31 mg/dL (0.55-1.3) H D 08/15/19 05:22 Estimated GFR 14 mL/min (=/>90) L 08/15/19 05:22 Glucose 121 mg/dL (74-106) H 08/15/19 05:22 POC Glucose 183 mg/dl (65-120) H 08/15/19 11:54 Hemoglobin A1c 7.5 % (4.2-6.3) H 08/08/19 16:18 Calcium 8.1 mg/dL (8.5-10.1) L 08/15/19 05:22 Phosphorus 4.4 mg/dL (2.5-4.9) 08/14/19 06:24 Magnesium 2.0 mg/dL (1.8-2.4) 08/13/19 06:19 Total Bilirubin 0.2 mg/dL (0.2-1.0) 08/08/19 16:18 Direct Bilirubin < 0.1 mg/dL (0-0.2) 08/08/19 16:18 AST 7 U/L (15-37) L 08/08/19 16:18 ALT 18 U/L (12-78) 08/08/19 16:18 Alkaline Phosphatase 115 U/L (45-117) 08/08/19 16:18 C-Reactive Protein 363.00 mg/L (<3.00) H 08/08/19 16:18 Serum Total Protein 6.8 g/dL (6.4-8.2) 08/08/19 16:18 Albumin 1.7 g/dL (3.4-5.0) L 08/14/19 06:24 Globulin 5.0 g/dL (2.3-3.5) H 08/08/19 16:18 Albumin/Globulin Ratio 0.4 (1.1-1.8) L 08/08/19 16:18 Vitamin B12 1170 pg/mL (193-986) H 08/08/19 16:18 25-OH Vitamin D Total 38.8 ng/mL (30-100) 08/08/19 16:18 TSH 2.380 uIU/mL (0.360-3.740) 08/08/19 16:18 Vancomycin Trough 13.1 ug/mL (5.0-20.0) 08/14/19 16:31 ROS: General: Awake, Alert, lying in bed CV: S1, S2 RESP: Clear to auscultation ABD: Flat, soft, nontender Extremities: no edema Skin: Right BKA with jojo bandage wrap, CDI. Assessment and plan: Osteomyelitis, s/p right BKA Leukocytosis resolved Blood cultures show no growth to date Continue current treatment Recommend possible transfer to [facility] facility Patient discussed with Dr. Cho
--- NOTE | 2019-08-15 14:21 | PN ---
Date of Progress Note: 08/15/2019 History: Patient was admitted with osteomyelitis of the right heel. Patient is status post below-kn ee amputation. Patient tolerated the procedure. Patient is calm, sitting in bed. Physical Examination: Vital Signs: Blood pressure 183/76, pulse of 72, afebrile. Chest: Clear to auscultation. Heart: S1, S2. Regular. Abdomen: Soft, nontender. Extremities: Right below-knee amputation. Laboratory Data: WBC 8, H and H 8.3/26.4, platelets 467. Sodium 140, potassium 4, bicarb 27, BUN 43 , creatinine 4.3, calcium 8.1. Current Medications: The patient on include Levaquin 250 after each dialysis, vancomycin, donepezil, Epogen, amlodipine 10 mg daily, carvedilol 25 b.i.d., losartan 50 daily, Zoloft, Seroquel, trazodone , glimepiride. Assessment And Plan: 1.End-stage renal disease, currently normal volume. We will back to his regular schedule Wednesday, , Wednesday. 2.Anemia of chronic kidney disease. Continue DERREK. I am going to go ahead and increase Retacrit to 6000 and we will follow up. 3.Secondary hyperparathyroidism, stable. 4.Osteomyelitis, status post below-knee amputation. Continue PT OT. Continue antibiotics. Antibio tics can be given on dialysis. We will consider rehab or inpatient rehab. We will follow up with Dr Christopher Lopez. 5.Diabetes, as by primary. KWADWO/MARY Voice ID: [id number] Report ID: [id number]
--- NOTE | 2019-08-15 17:53 | P.PN ---
Subjective Date of Service: 08/15/19 Chief Complaint: R FOOT GANGRENE Subjective: Improving MR. LOO IS A DIABETIC WHO WAS ON LONG-TERM ANTIBIOTIC FOR POSITIVE BLOOD CULTURES GIVEN BY MACHINE ROOM ENGINEER. THE SOURCE WAS UNCLEAR. HE DEVELOPED THIS ULCER WHILE ON ANTIBIOTICS AND GOT WORSE WHILE BEING ON DAPTOMYCIN IV. HE IS BETTER TODAY HE IS GETTING ANTIBIOTICS IV SINCE YESTERDAY BY ME. MR LOO IS DOING BETTER. HE IS POST OP R BKA NOW. WITH AMPUTATION AND MENTAL STATUS, HE IS REJECTED FROM REHAB. HE WILL NEED NH. HE MAY HAVE TO GET HD A FACILITY AND NOT AT HOME. HIS WILL NOT BE ABLE TOT TAKE CARE OF HIM. I TALKED TO HER AND SHE UNDERSTANDS. Review of Systems 10-point ROS is otherwise unremarkable General: Weakness Physical Examination - Vital Signs Temperature: 96.6 F Blood Pressure: 119/61 Pulse: 71 Respirations: 16 Pulse Ox (%): 96 - Physical Exam General: Oriented x2, Mild distress HEENT: Atraumatic, PERRLA, EOMI Neck: Supple, JVD not distended Respiratory: Clear to auscultation bilaterally, Normal air movement Cardiovascular: Regular rate/rhythm, Normal S1 S2, Other (R BKA.) Gastrointestinal: Normal bowel sounds, No tenderness Musculoskeletal: No tenderness Integumentary: No rashes Neurological: Normal speech, Normal tone, Normal affect Lymphatics: No axilla or inguinal lymphadenopathy - Studies Laboratory Data (last 24 hrs) 08/15/19 05:22: Sodium 140, Potassium 4.0, BUN 43 H D, Creatinine 4.31 H D, Glucose 121 H 08/15/19 05:22: WBC 8.0 D, Hgb 8.3 L, Hct 26.4 L, Plt Count 467 H Medications List Reviewed: Yes Assessment And Plan - Current Problems (Diagnosis) (1) Gangrene of right foot Current Visit: Yes Status: Chronic Plan: FAILED TO RECOVER BEING ON ANTIBIOTICS. I SUSPECT AND AGREE WITH DR. KAUR THAT HE WILL NOT RECOVER WITH MORE ANTIBIOTICS IV. HE WILL NEED AMPUTATION TO SURVIVE. I TALKED TO AND SHE UNDERSTANDS. SP BKA DAY 3. STABLE (2) Diabetes Current Visit: Yes Status: Chronic Plan: WILL FU A1C RTN. Qualifiers: Diabetes mellitus type: type 2 (3) CKD (chronic kidney disease) stage 5, GFR less than 15 ml/min Current Visit: No Status: Chronic Plan: ON HD EVERY OTHER DAY. (4) Gram positive sepsis Current Visit: Yes Status: Acute Plan: ONE CULTURE IS POSITIVE. HE IS ALREADY ON VANCOMYCIN. (5) Positive culture findings in wound Current Visit: Yes Status: Acute Plan: ADD LEVAQUIN FOR ALL 3 BACTERIA. HE ALREADY HAD BKA FOR THIS WOUND THAT GREW CULTURE. I WILL STILL CONTINUE LEVAQUIN FOR 10 DAYS HE HAS LEUKOCYTOSIS. (6) HTN (hypertension) Current Visit: Yes Status: Acute Plan: RAISE NORVASC TO 10 MG DAILY. Qualifiers: Hypertension type: essential hypertension Qualified Code(s): I10 - Essential (primary) hypertension
[2019-08-15] MEDS: DONEPEZIL HCL 5 MG TAB PO SCH (20:30)
[2019-08-15] MEDS: HYDROCODONE/APAP 7.5/325 MG TAB PO PRN (20:30)
[2019-08-15] MEDS: TRAZODONE 50 MG TABLET PO SCH (20:31)
[2019-08-16] MEDS: ALBUTEROL 2.5 MG/3 ML NEB SOL IH SCH ×4 (01:45→19:30)
[2019-08-16] MEDS: IPRATROPIUM BROM 0.5MG/2.5ML IH SCH ×4 (01:45→19:30)
[2019-08-16 06:13] LABS: Absolute Lymphocytes (CBC) 0.9 K/uL (0.7-4.9); Hematocrit 24.3 % (39.6-49.0); Lymphocytes % 8.5 % (15.3-44.8); MPV 7.2 fL (7.6-11.3); RBC Red Blood Cell Count 2.68 M/uL (4.33-5.43)
[2019-08-16 06:39] LABS: Potassium 4.4 mmol/L (3.5-5.1)
[2019-08-16] MEDS: INSULIN -REGULAR HUMAN 50 UNIT/0.5 ML ML SQ SCH ×4 (07:30→22:07)
[2019-08-16] MEDS: JUVEN PACKET PO SCH ×2 (09:00→22:07)
[2019-08-16] MEDS: DOCUSATE NA 100 MG CAP PO SCH ×2 (09:00→22:06)
[2019-08-16] MEDS: AMLODIPINE 5 MG TAB PO SCH (09:08)
[2019-08-16] MEDS: GLIMEPIRIDE 2 MG TABLET PO SCH (09:08)
[2019-08-16] MEDS: LOSARTAN POTASSIUM 50 MG TABLET PO SCH ×2 (09:09→22:05)
[2019-08-16] MEDS: PANTOPRAZOLE 40MG TABLET PO SCH (09:09)
[2019-08-16] MEDS: QUETIAPINE 25 MG TAB PO SCH ×2 (09:09→22:05)
[2019-08-16] MEDS: SERTRALINE HCL 50 MG TAB PO SCH (09:09)
[2019-08-16] MEDS: carvediloL 25 MG TAB PO SCH ×2 (09:09→22:05)
[2019-08-16] MEDS: levoFLOXacin 250 MG TAB PO SCH (09:09)
--- NOTE | 2019-08-16 10:19 | PN ---
Date of Progress Note: 08/16/2019 Subjective: Patient is awake, alert, no complaints. Objective: Vital Signs: Stable, afebrile. EXTREMITIES: Examination of the right BKA stump reveals to be clean, dry, and intact. No evidence o f any infection, healing well. Assessment: Status post right tqceb-bks-glts amputation. Recommendation: Jtciyr-gq-adswy dressing is ordered. Physical therapy is ordered. Follow up in the wound healing center in 3 weeks upon discharge. /MODL Voice ID: [id number] Report ID: [id number]
--- NOTE | 2019-08-16 12:13 | PN ---
Date of Progress Note: 08/16/2019 History: Patient doing well. Patient had right below-knee amputation. Physical Examination: Vital Signs: Blood pressure 160/73, pulse of 74. Chest: Clear to auscultation. Heart: S1, S2. Regular. Abdomen: Soft, nontender. Extremities: Right below-knee amputation. Laboratory Data: WBC 10.3, H and H 7.9/24.3, platelets 454. Sodium 139, potassium 4.4, bicarb 27, B UN , creatinine 5, calcium of 8. Medications: The patient on include Levaquin 250 daily, vancomycin with each dialysis, donepezil, Ep ogen, amlodipine 10 mg, carvedilol 25 b.i.d., losartan 50, Zoloft, trazodone, sertraline. Assessment And Plan: 1.End-stage renal disease. We will maintain the patient on dialysis Wednesday, Wednesday, Wednesday. Tamar gee is going to be scheduled for dialysis today. 2.Hypertension, controlled, optimal. We will follow up blood pressure after dialysis. 3.Osteomyelitis, status post below-knee amputation. Continue current antibiotics. I am going to ad just the Levaquin to be every 48 hours given the end-stage renal disease. Continue vancomycin. We w ill follow up with primary. 4.Anemia of chronic kidney disease. Continue DERREK. ROCÍO Voice ID: [id number] Report ID: [id number]
--- NOTE | 2019-08-16 15:42 | P.PN ---
Date of Service: 08/16/19 Subjective: The patient is a 68-year-old male with past medical history of hypertension, secondary hyperparathyroidism, end-stage renal disease on HD, congestive heart failure. Patient was admitted to [facility] for right foot infection and found to have osteomyelitis to right heel which I was consulted for. Patient examined at bedside. Patient denies nausea, shortness of breath, fever and diarrhea. Patient s/p right BKA. Objective: Temp Pulse Resp BP Pulse Ox 97.4 F 74 19 160/73 H 94 08/16/19 08:00 08/16/19 09:09 08/16/19 08:00 08/16/19 09:09 08/16/19 08:00 08/16/19 11:51: POC Glucose 152 H 08/16/19 11:51: Vancomycin Trough 17.1 08/16/19 08:15: POC Glucose 136 H 08/16/19 05:58: Sodium 139, Potassium 4.4, Chloride 105, Carbon Dioxide 27, BUN 60 H, Creatinine 5.35 H* D, Estimated GFR 11 L, Glucose 130 H, Calcium 8.0 L 08/16/19 05:58: WBC 10.3 D, RBC 2.68 L, Hgb 7.9 L*, Hct 24.3 L, MCV 90.7, MCH 29.3, MCHC 32.4, RDW 17.3 H, Plt Count 453 H, MPV 7.2 L, Neutrophils % 79.6 H, Lymphocytes % 8.5 L, Monocytes % 8.1, Eosinophils % 2.8, Basophils % 1.0, Absolute Neutrophils 8.2 H, Absolute Lymphocytes 0.9, Absolute Monocytes 0.8, Absolute Eosinophils 0.3, Absolute Basophils 0.1 08/15/19 20:41: POC Glucose 202 H 08/15/19 18:07: Hemoglobin A1c 7.1 H 08/15/19 18:07: LDL Cholesterol Direct 89 L ROS: General: Awake, Alert, lying in bed CV: S1, S2 RESP: Clear to auscultation ABD: Flat, soft, nontender Extremities: no edema Skin: Right BKA with zhao intact, no erythema, warmth or drainage Assessment and plan: Osteomyelitis, s/p right BKA Leukocytosis resolved Blood cultures show no growth to date Recommend to change to Doxycycline 100mg PO BID and Cipro 250mg PO daily x7 days. Recommend possible transfer to [facility] facility Patient discussed with Dr. Cho
--- NOTE | 2019-08-16 20:25 | PN ---
Mr. Reynaga is stable. We are waiting for sr. social media & mobile manager to arrange for longterm care. Patient, I think can go to a longterm, get a dialysis with the help of Dr. Celaya's clinic instead of shailesh infante at long term facility, which will allow [facility], which is not happening so far. Prognosis remains overall guarded. He needs longterm because family cannot take care of hi m any longer. He has a below-knee amputation now and not able to get around, but at his age with a w reynaldo who cannot handle him as he is a big césar. Prognosis guarded. RVD/MODL Voice ID: [id number] Report ID: [id number]
[2019-08-16] MEDS: TRAZODONE 50 MG TABLET PO SCH (22:06)
[2019-08-16] MEDS: DONEPEZIL HCL 5 MG TAB PO SCH (22:06)
[2019-08-17] MEDS: IPRATROPIUM BROM 0.5MG/2.5ML IH SCH ×4 (01:30→19:45)
[2019-08-17] MEDS: ALBUTEROL 2.5 MG/3 ML NEB SOL IH SCH ×4 (01:30→19:45)
[2019-08-17 04:44] LABS: Absolute Lymphocytes (CBC) 0.8 K/uL (0.7-4.9); Basophils % 1.4 % (0-1.3); Hematocrit 26.8 % (39.6-49.0); Lymphocytes % 10.6 % (15.3-44.8); MPV 7.3 fL (7.6-11.3); RBC Red Blood Cell Count 2.97 M/uL (4.33-5.43)
[2019-08-17] MEDS: INSULIN -REGULAR HUMAN 50 UNIT/0.5 ML ML SQ SCH ×4 (07:30→21:00)
[2019-08-17] MEDS: SERTRALINE HCL 50 MG TAB PO SCH (08:27)
[2019-08-17] MEDS: LOSARTAN POTASSIUM 50 MG TABLET PO SCH ×2 (08:27→21:14)
[2019-08-17] MEDS: carvediloL 25 MG TAB PO SCH ×2 (08:27→21:15)
[2019-08-17] MEDS: AMLODIPINE 5 MG TAB PO SCH (08:27)
[2019-08-17] MEDS: PANTOPRAZOLE 40MG TABLET PO SCH (08:28)
[2019-08-17] MEDS: GLIMEPIRIDE 2 MG TABLET PO SCH (08:28)
[2019-08-17] MEDS: DOCUSATE NA 100 MG CAP PO SCH ×3 (08:28→21:14)
[2019-08-17] MEDS: QUETIAPINE 25 MG TAB PO SCH ×2 (08:28→21:16)
[2019-08-17] MEDS: JUVEN PACKET PO SCH ×2 (08:29→21:17)
[2019-08-17] MEDS: levoFLOXacin 250 MG TAB PO SCH (13:20)
--- NOTE | 2019-08-17 14:21 | P.PN ---
Date of Service: 08/17/19 Subjective: The patient is a 68-year-old male with past medical history of hypertension, secondary hyperparathyroidism, end-stage renal disease on HD, congestive heart failure. Patient was admitted to [facility] for right foot infection and found to have osteomyelitis to right heel which I was consulted for. Patient examined at bedside. Patient denies nausea, shortness of breath, fever and diarrhea. Patient s/p right BKA. Reports fatigue. Objective: Temp Pulse Resp BP Pulse Ox 97.5 F 85 18 121/69 95 08/17/19 08:00 08/17/19 08:27 08/17/19 08:00 08/17/19 08:27 08/17/19 08:00 08/17/19 12:05: POC Glucose 162 H 08/17/19 08:09: POC Glucose 86 08/17/19 04:31: Sodium 138, Potassium 4.0, Chloride 104, Carbon Dioxide 29, BUN 37 H D, Creatinine 3.98 H D, Estimated GFR 15 L, Glucose 74, Calcium 8.6 08/17/19 04:31: WBC 7.9 D, RBC 2.97 L, Hgb 8.6 L, Hct 26.8 L, MCV 90.1, MCH 28.9, MCHC 32.1, RDW 16.9 H, Plt Count 447 H, MPV 7.3 L, Neutrophils % 76.2 H, Lymphocytes % 10.6 L, Monocytes % 9.0, Eosinophils % 2.8, Basophils % 1.4 H, Absolute Neutrophils 6.0, Absolute Lymphocytes 0.8, Absolute Monocytes 0.7, Absolute Eosinophils 0.2, Absolute Basophils 0.1 08/16/19 19:33: POC Glucose 164 H 08/16/19 16:31: POC Glucose 183 H ROS: General: Awake, Alert, lying in bed CV: S1, S2 RESP: Clear to auscultation ABD: Flat, soft, nontender Extremities: no edema Skin: Right BKA with dressing CDI, nitza area with no erythema Assessment and plan: Osteomyelitis, s/p right BKA Leukocytosis resolved Blood cultures show no growth to date Recommend to change to Doxycycline 100mg PO BID and Cipro 250mg PO daily x7 days. Recommend possible transfer to [facility] rehab facility Patient discussed with Dr. Cho
--- NOTE | 2019-08-17 19:17 | PN ---
Date of Progress Note: 08/17/2019 Subjective: Patient was admitted with infected foot with osteomyelitis. Patient is status post ampu tation, below-knee. Patient still confused. Physical Examination: Vital Signs: Blood pressure 121/69, pulse of 85. Chest: Clear to auscultation. Heart: S1, S2. Regular. Abdomen: Soft, nontender. Extremities: No edema. Right below-knee amputation. Neuro: No focal. Laboratory Data: WBC 7.9, H and H 8.6/26.8, platelets 447. Sodium 138, potassium 4, bicarb 29, BUN 37, creatinine 3.9, calcium 8.6. Current Medications: The patient on includes: 1.Levaquin. 2.Vancomycin. 3.Donepezil. 4.Lovenox. 5.Epogen. 6.Amlodipine 10. 7.Carvedilol 25. 8.Losartan 50. Assessment And Plan: 1.End-stage renal disease, status post dialysis yesterday. I am going to arrange for the patient fo r dialysis tomorrow and we will follow up. 2.Hypertension, controlled, optimal. Continue current treatment. We will decrease the amlodipine t o 5 mg to avoid hypotension during the dialysis and we will follow up. 3.Osteomyelitis, status post below-knee amputation. Continue current antibiotic. We will follow up with primary. 4.Deconditioning. Continue PT/OT. Patient waiting for placement. ROCÍO Voice ID: [id number] Report ID: [id number]
--- NOTE | 2019-08-17 19:41 | PN ---
Mr. Reynaga is in the hospital just waiting for his placement for dialysis at this point. He has bee n stable for the last few days. burlap worker is struggling to get him placement for dialysis. He w as on home dialysis and none of the group home was willing to do dialysis at home or dialysis with [facility] equipment. We are trying to switch that to [facility] at the facility. Now, i t will take some time to get that situated. Prognosis overall guarded. He is still getting antibiot ics because he had positive blood cultures. He will finish about 14 days of antibiotics, Levaquin an d vancomycin as needed. RVD/MODL Voice ID: [id number] Report ID: [id number]
[2019-08-17] MEDS: TRAZODONE 50 MG TABLET PO SCH (21:14)
[2019-08-17] MEDS: DONEPEZIL HCL 5 MG TAB PO SCH (21:15)
[2019-08-18] MEDS: IPRATROPIUM BROM 0.5MG/2.5ML IH SCH ×4 (02:40→20:35)
[2019-08-18] MEDS: ALBUTEROL 2.5 MG/3 ML NEB SOL IH SCH ×4 (02:40→20:35)
[2019-08-18 06:35] LABS: Absolute Lymphocytes (CBC) 0.9 K/uL (0.7-4.9); Basophils % 1.5 % (0-1.3); Hematocrit 26.3 % (39.6-49.0); Lymphocytes % 13.1 % (15.3-44.8); MPV 7.6 fL (7.6-11.3); RBC Red Blood Cell Count 2.88 M/uL (4.33-5.43)
[2019-08-18 07:16] LABS: Potassium 4.4 mmol/L (3.5-5.1)
[2019-08-18] MEDS: INSULIN -REGULAR HUMAN 50 UNIT/0.5 ML ML SQ SCH ×4 (07:30→22:00)
[2019-08-18] MEDS: AMLODIPINE 5 MG TAB PO SCH (07:57)
[2019-08-18] MEDS: GLIMEPIRIDE 2 MG TABLET PO SCH (07:57)
[2019-08-18] MEDS: carvediloL 25 MG TAB PO SCH ×2 (07:57→21:59)
[2019-08-18] MEDS: LOSARTAN POTASSIUM 50 MG TABLET PO SCH ×2 (07:57→21:59)
[2019-08-18] MEDS: QUETIAPINE 25 MG TAB PO SCH ×2 (07:58→21:59)
[2019-08-18] MEDS: PANTOPRAZOLE 40MG TABLET PO SCH (07:58)
[2019-08-18] MEDS: DOCUSATE NA 100 MG CAP PO SCH ×3 (08:00→21:59)
[2019-08-18] MEDS: SERTRALINE HCL 50 MG TAB PO SCH (08:04)
[2019-08-18] MEDS: JUVEN PACKET PO SCH ×2 (08:04→21:59)
--- NOTE | 2019-08-18 14:50 | PN ---
Subjective: Mr. Reynaga is doing well. They are waiting for a elementary school social worker and insurance company t o approve outpatient hemodialysis. Until then he will be stuck here at the hospital. Continue vanco mycin after dialysis and Levaquin p.o. every other day. The patient is currently stable. YOSELYN/MODL Voice ID: [id number] Report ID: [id number]
--- NOTE | 2019-08-18 15:09 | P.PN ---
Subjective Date of Service: 08/18/19 Chief Complaint: R FOOT GANGRENE Pt with ESRD , presented for Foot ulcer , S/P BKA Today seen and examined during HD stable VS cont Abx and wound care PT/OT Physical exam general: AAOX3, NAD , Neck; Supple, No elevated JVD hear: RRR, normal S1,2 no murmur or rub Chest: CTAB, no rlaes or wheezes Abdomen: Soft , Nt Extremities No edema , Rt BKA A/P End-stage renal disease on HD MWF HD as per schedule renal dose meds Anemia of chronic disease Cont epogen HTN Controlled Foot ulcer and OM S/P BKA total time spent 35 min Physical Examination - Vital Signs Temperature: 97.6 F Blood Pressure: 143/58 Pulse: 76 Respirations: 17 Pulse Ox (%): 98 - Studies Laboratory Data (last 24 hrs) 08/18/19 05:56: Sodium 139, Potassium 4.4, BUN 46 H, Creatinine 5.32 H* D, Glucose 68 L 08/18/19 05:56: WBC 6.7 D, Hgb 8.5 L, Hct 26.3 L, Plt Count 424 H Medications List Reviewed: Yes
--- NOTE | 2019-08-18 15:22 | P.PN ---
Date of Service: 08/18/19 Subjective: The patient is a 68-year-old male with past medical history of hypertension, secondary hyperparathyroidism, end-stage renal disease on HD, congestive heart failure. Patient was admitted to [facility] for right foot infection and found to have osteomyelitis and is s/p right BKA. Patient examined at bedside. Patient denies nausea, shortness of breath, fever and diarrhea. Objective: Temp Pulse Resp BP Pulse Ox 97.6 F 76 17 143/58 H 98 08/18/19 15:08/18/19 15:08/18/19 15:08/18/19 15:08/18/19 15:08/18/19 13:41: Vancomycin Trough 12.9 08/18/19 10:48: POC Glucose 152 H 08/18/19 08:17: POC Glucose 304 H 08/18/19 07:36: POC Glucose 64 L 08/18/19 05:56: Sodium 139, Potassium 4.4, Chloride 105, Carbon Dioxide 28, BUN 46 H, Creatinine 5.32 H* D, Estimated GFR 11 L, Glucose 68 L, Calcium 8.4 L 08/18/19 05:56: WBC 6.7 D, RBC 2.88 L, Hgb 8.5 L, Hct 26.3 L, MCV 91.0, MCH 29.4, MCHC 32.2, RDW 17.0 H, Plt Count 424 H, MPV 7.6, Neutrophils % 74.1 H, Lymphocytes % 13.1 L, Monocytes % 8.2, Eosinophils % 3.1, Basophils % 1.5 H, Absolute Neutrophils 5.0, Absolute Lymphocytes 0.9, Absolute Monocytes 0.6, Absolute Eosinophils 0.2, Absolute Basophils 0.1 08/17/19 20:02: POC Glucose 120 08/17/19 17:02: POC Glucose 141 H ROS: General: Awake, Alert, lying in bed, receiving dialysis CV: S1, S2 RESP: Clear to auscultation ABD: Flat, soft, nontender Extremities: no edema Skin: Right BKA with dressing CDI, nitza area with no erythema Assessment and plan: Osteomyelitis, s/p right BKA Leukocytosis resolved Blood cultures show no growth to date Recommend to change to Doxycycline 100mg PO BID and Cipro 250mg PO daily x7 days. Patient would benefit from a rehab facility Patient discussed with Dr. Cho
[2019-08-18] MEDS: DONEPEZIL HCL 5 MG TAB PO SCH (21:59)
[2019-08-18] MEDS: TRAZODONE 50 MG TABLET PO SCH (21:59)
[2019-08-19] MEDS: IPRATROPIUM BROM 0.5MG/2.5ML IH SCH ×4 (01:10→19:10)
[2019-08-19] MEDS: ALBUTEROL 2.5 MG/3 ML NEB SOL IH SCH ×4 (01:10→19:10)
[2019-08-19] MEDS: INSULIN -REGULAR HUMAN 50 UNIT/0.5 ML ML SQ SCH ×4 (07:30→21:00)
[2019-08-19] MEDS: LOSARTAN POTASSIUM 50 MG TABLET PO SCH ×2 (08:40→21:54)
[2019-08-19] MEDS: SERTRALINE HCL 50 MG TAB PO SCH (08:40)
[2019-08-19] MEDS: PANTOPRAZOLE 40MG TABLET PO SCH (08:40)
[2019-08-19] MEDS: AMLODIPINE 5 MG TAB PO SCH (08:40)
[2019-08-19] MEDS: carvediloL 25 MG TAB PO SCH ×2 (08:40→21:54)
[2019-08-19] MEDS: GLIMEPIRIDE 2 MG TABLET PO SCH (08:40)
[2019-08-19] MEDS: DOCUSATE NA 100 MG CAP PO SCH ×3 (08:40→21:00)
[2019-08-19] MEDS: QUETIAPINE 25 MG TAB PO SCH ×2 (08:40→21:54)
[2019-08-19] MEDS: JUVEN PACKET PO SCH ×2 (08:41→21:55)
[2019-08-19] MEDS: levoFLOXacin 250 MG TAB PO SCH (12:18)
[2019-08-19] MEDS: VANCOMYCIN/NS 1 gm 1 GM/250 ML BAG IV SCH (12:19)
--- NOTE | 2019-08-19 13:25 | PN ---
Subjective: Mr. Reynaga is doing a lot better, sitting up in a chair, eating his breakfast and lunch , feeling good, we are just waiting for insurance company now to approve his stay at snf. T his is what is delaying his discharge from the hospital as it has happened in the last 6 months multi ple times according to Dr. Celaya. He is status post BKA, afebrile, does not look septic at all an ymore. He looks much more lively. Objective: Vital Signs: His blood pressure is 150/67. Chest: Clear. Heart: Regular. Abdomen: No guarding, no rebound, no rigidity. Assessment And Plan: 1.Antibiotic to be continued for about 2 weeks total with a positive blood culture from the gangreno us heel infection. 2.Dialysis continued at home usually by [facility], but now he will be at sn[facility], it loo ks like he cannot go back home for a few months because his family cannot take care of him any longer with amputation. RVD/MODL Voice ID: [id number] Report ID: [id number]
--- NOTE | 2019-08-19 14:10 | PN ---
Date of Progress Note: 08/19/2019 Patient was admitted with osteomyelitis, status post right below-knee amputation. Patient more awake today. Physical Examination: Vital Signs: Blood pressure 150/67, pulse of 77. Chest: Clear to auscultation. Heart: S1, S2. Regular. Abdomen: Soft, nontender. Extremities: No edema. Right below-knee amputation. Laboratory Data: H and H 8.5/26.3. Sodium 139, potassium 4.4, bicarb 28, BUN 46, creatinine 5.3, ca lcium 8.4. Current Medications: The patient on include: 1.Levaquin. 2.Vancomycin. 3.Donepezil. 4.Epogen. 5.Lovenox. 6.Amlodipine 5. 7.Carvedilol. 8.Losartan. 9.Trazodone. 10.Breathing treatment. Assessment And Plan: 1.End-stage renal disease. We will maintain the patient on dialysis Wednesday, Wednesday, Wednesday. 2.Secondary hyperparathyroid, stable. We will monitor. 3.Anemia of chronic kidney disease. Continue erythropoiesis-stimulating agent. 4.Osteomyelitis, status post amputation. Continue current antibiotic. We will follow up with Infec tious Disease and Primary. ROCÍO Voice ID: [id number] Report ID: [id number]
[2019-08-19] MEDS: DONEPEZIL HCL 5 MG TAB PO SCH (21:54)
[2019-08-19] MEDS: TRAZODONE 50 MG TABLET PO SCH (21:58)
[2019-08-20] MEDS: IPRATROPIUM BROM 0.5MG/2.5ML IH SCH ×4 (00:15→19:40)
[2019-08-20] MEDS: ALBUTEROL 2.5 MG/3 ML NEB SOL IH SCH ×4 (00:15→19:40)
[2019-08-20] MEDS: INSULIN -REGULAR HUMAN 50 UNIT/0.5 ML ML SQ SCH ×4 (07:30→21:00)
[2019-08-20] MEDS: JUVEN PACKET PO SCH ×2 (09:00→22:19)
[2019-08-20] MEDS: DOCUSATE NA 100 MG CAP PO SCH ×2 (09:00→22:16)
[2019-08-20] MEDS: carvediloL 25 MG TAB PO SCH ×2 (09:23→22:17)
[2019-08-20] MEDS: QUETIAPINE 25 MG TAB PO SCH ×2 (09:23→22:17)
[2019-08-20] MEDS: PANTOPRAZOLE 40MG TABLET PO SCH (09:23)
[2019-08-20] MEDS: GLIMEPIRIDE 2 MG TABLET PO SCH (09:23)
[2019-08-20] MEDS: LOSARTAN POTASSIUM 50 MG TABLET PO SCH ×2 (09:23→22:17)
[2019-08-20] MEDS: AMLODIPINE 5 MG TAB PO SCH (09:23)
[2019-08-20] MEDS: SERTRALINE HCL 50 MG TAB PO SCH (09:24)
--- NOTE | 2019-08-20 09:44 | P.PN ---
Subjective Date of Service: 08/20/19 Chief Complaint: R FOOT GANGRENE Subjective: Improving MR. LOO IS A DIABETIC WHO WAS ON INTERMEDIATE ANTIBIOTIC FOR POSITIVE BLOOD CULTURES GIVEN BY RIPRAP PLACING SUPERVISOR. THE SOURCE WAS UNCLEAR. HE DEVELOPED THIS ULCER WHILE ON ANTIBIOTICS AND GOT WORSE WHILE BEING ON DAPTOMYCIN IV. HE IS BETTER TODAY HE IS GETTING ANTIBIOTICS IV SINCE YESTERDAY BY ME. MR LOO IS DOING BETTER. HE IS POST OP R BKA NOW. WITH AMPUTATION AND MENTAL STATUS, HE IS REJECTED FROM REHAB. HE WILL NEED NH. HE MAY HAVE TO GET HD A FACILITY AND NOT AT HOME. HIS WILL NOT BE ABLE TOT TAKE CARE OF HIM. I TALKED TO HER AND SHE UNDERSTANDS. HE IS STABLE. OVERSTAYED IN HOSPITAL ONLY BECAUSE INSURANCE COMPANY HAS BEEN REJECTING ALF OR SNIF STAY. HOPE HE DOES NOT GET COMPLICATIONS HERE FROM OVERSTAY. Physical Examination - Vital Signs Temperature: 96.9 F Blood Pressure: 160/78 Pulse: 78 Respirations: 18 Pulse Ox (%): 93 - Physical Exam General: Alert, In no apparent distress HEENT: Atraumatic, PERRLA, EOMI Neck: Supple, JVD not distended Respiratory: Clear to auscultation bilaterally, Normal air movement Cardiovascular: Regular rate/rhythm, Normal S1 S2 Gastrointestinal: Normal bowel sounds, No tenderness Musculoskeletal: No tenderness Integumentary: No rashes Neurological: Normal speech, Normal tone, Normal affect Lymphatics: No axilla or inguinal lymphadenopathy - Studies Medications List Reviewed: Yes Assessment And Plan - Current Problems (Diagnosis) (1) Gangrene of right foot Current Visit: Yes Status: Chronic Plan: FAILED TO RECOVER BEING ON ANTIBIOTICS. I SUSPECT AND AGREE WITH DR. KAUR THAT HE WILL NOT RECOVER WITH MORE ANTIBIO TICS IV. HE WILL NEED AMPUTATION TO SURVIVE. I TALKED TO AND SHE UNDERSTANDS. SP BKA DAY 3. STABLE (2) Diabetes Current Visit: Yes Status: Chronic Plan: WILL FU A1C RTN. Qualifiers: Diabetes mellitus type: type 2 (3) CKD (chronic kidney disease) stage 5, GFR less than 15 ml/min Current Visit: No Status: Chronic Plan: ON HD EVERY OTHER DAY. (4) Gram positive sepsis Current Visit: Yes Status: Acute Plan: ONE CULTURE IS POSITIVE. HE IS ALREADY ON VANCOMYCIN. (5) Positive culture findings in wound Current Visit: Yes Status: Acute Plan: ADD LEVAQUIN FOR ALL 3 BACTERIA. HE ALREADY HAD BKA FOR THIS WOUND THAT GREW CULTURE. I WILL STILL CONTINUE LEVAQUIN FOR 10 DAYS HE HAS LEUKOCYTOSIS. (6) HTN (hypertension) Current Visit: Yes Status: Acute Plan: RAISE NORVASC TO 10 MG DAILY. Qualifiers: Hypertension type: essential hypertension Qualified Code(s): I10 - Essential (primary) hypertension
--- NOTE | 2019-08-20 17:20 | PN ---
Date of Progress Note: 08/20/2019 Subjective: Patient was admitted with osteomyelitis, status post right below-knee amputation. Patie nt tolerated the procedure. Patient waiting for chair time at [facility]. Physical Examination: Vital Signs: Blood pressure 160/75, pulse of 78. Chest: Clear to auscultation. Heart: S1, S2. Regular. Systolic murmur. Abdomen: Soft, nontender. Extremities: Right below-knee amputation. Laboratory Data: H and H 8.5/26.3. Sodium 139, potassium 4.4, bicarb 28, BUN 46, creatinine 5.3, ca lcium 8.4. Medications: Current medications the patient on include; 1.Vancomycin. 2.Levaquin. 3.Epogen. 4.Donepezil. 5.Amlodipine. 6.Losartan 50. 7.Carvedilol. 8.Zoloft. 9.Seroquel. Assessment And Plan: 1.End-stage renal disease. We will continue the patient on his dialysis Wednesday, Wednesday, Wednesday. We will arrange for dialysis tomorrow. 2.Secondary hyperparathyroidism. Stable. Continue current treatment. 3.Anemia of chronic kidney disease. Continue DERREK. 4.Diabetic foot, status post below-knee amputation. Continue current antibiotic. Continue PT, OT. KWADWO/MARY Voice ID: [id number] Report ID: [id number]
[2019-08-20] MEDS: TRAZODONE 50 MG TABLET PO SCH (22:16)
[2019-08-20] MEDS: DONEPEZIL HCL 5 MG TAB PO SCH (22:17)
[2019-08-21] MEDS: ALBUTEROL 2.5 MG/3 ML NEB SOL IH SCH ×4 (00:05→20:45)
[2019-08-21] MEDS: IPRATROPIUM BROM 0.5MG/2.5ML IH SCH ×4 (01:01→20:45)
[2019-08-21] MEDS: INSULIN -REGULAR HUMAN 50 UNIT/0.5 ML ML SQ SCH ×4 (07:30→21:00)
[2019-08-21] MEDS ORDERED: IPRATROPIUM BROM 0.5MG/2.5ML ONE (08:10)
[2019-08-21] MEDS: GLIMEPIRIDE 2 MG TABLET PO SCH (09:39)
[2019-08-21] MEDS: LOSARTAN POTASSIUM 50 MG TABLET PO SCH ×2 (09:39→22:29)
[2019-08-21] MEDS: DOCUSATE NA 100 MG CAP PO SCH ×2 (09:39→22:29)
[2019-08-21] MEDS: carvediloL 25 MG TAB PO SCH ×2 (09:39→22:29)
[2019-08-21] MEDS: QUETIAPINE 25 MG TAB PO SCH ×2 (09:39→22:30)
[2019-08-21] MEDS: PANTOPRAZOLE 40MG TABLET PO SCH (09:39)
[2019-08-21] MEDS: AMLODIPINE 5 MG TAB PO SCH (09:40)
[2019-08-21] MEDS: JUVEN PACKET PO SCH ×2 (09:40→22:30)
[2019-08-21] MEDS: SERTRALINE HCL 50 MG TAB PO SCH (09:40)
[2019-08-21] MEDS: levoFLOXacin 250 MG TAB PO SCH (12:02)
[2019-08-21 12:19] LABS: Potassium 4.6 mmol/L (3.5-5.1)
--- NOTE | 2019-08-21 16:43 | P.PN ---
Date of Service: 08/21/19 Subjective: The patient is a 68-year-old male with past medical history of hypertension, secondary hyperparathyroidism, end-stage renal disease on HD, congestive heart failure. Patient was admitted to [facility] for right foot infection and found to have osteomyelitis and is s/p right BKA. Patient examined at bedside. Patient denies nausea, shortness of breath, fever and diarrhea. Objective: Temp Pulse Resp BP Pulse Ox 97.5 F 76 20 135/66 99 08/21/19 12:00 08/21/19 12:00 08/21/19 12:00 08/21/19 12:00 08/21/19 12:00 Laboratory Data (last 24 hrs) 08/21/19 11:53: Sodium 140, Potassium 4.6, BUN 69 H D, Creatinine 6.67 H* D, Glucose 137 H ROS: General: Awake, Alert, lying in bed, receiving dialysis CV: S1, S2 RESP: Clear to auscultation ABD: Flat, soft, nontender Extremities: no edema Skin: Right BKA with dressing CDI, nitza area with no erythema, warmth or drainage Assessment and plan: Osteomyelitis, s/p right BKA Leukocytosis resolved Blood cultures show no growth to date Recommend to change to Doxycycline 100mg PO BID and Cipro 250mg PO daily x7 days. Patient would benefit from a rehab facility Patient discussed with Dr. Cho
--- NOTE | 2019-08-21 22:26 | PN ---
Mr. Reynaga has been in the hospital for a few days now, about 10 days. Discharge is not possible be cause of insurance company, mainly. They are not able to approve for a custodial or SNF facility. He needs therapy but insurance company is the one which is the obstacle here. Discharge is delayed for a few days. YOSELYN/MARY Voice ID: [id number] Report ID: [id number]
[2019-08-21] MEDS: DONEPEZIL HCL 5 MG TAB PO SCH (22:29)
[2019-08-21] MEDS: TRAZODONE 50 MG TABLET PO SCH (22:29)
[2019-08-21] MEDS ORDERED: NA CHLORIDE 0.9% 0 ML ONE (23:00)
--- NOTE | 2019-08-22 00:45 | PN ---
Date of Progress Note: 08/21/2019 Chief Complaint: End-stage renal disease, on dialysis on Wednesday, Wednesday, Wednesday. Patient is unde rgoing dialysis today. History: Patient has multiple medical problems including history of diabetic foot infections, status post below-knee amputation. Patient was admitted for osteomyelitis and has right BKA. Review of Systems: Denies new complaints. Physical Examination: Lungs: Clear to auscultation bilaterally. Heart: S1, S2. Abdomen: Soft, benign. Extremities: Right below-knee amputation. Laboratory Data: Creatinine 5.3, sodium 139, potassium 4.4, bicarbonate 28. Hemoglobin 8.8, WBC 6.7 , platelet count 424,000. Today, blood work showed sodium 140, potassium 4.6, chloride 106, CO2 of 2 8, BUN 69, creatinine 6.67, calcium 8.2. Impression And Plan: 1.End-stage renal disease. Continue dialysis 3 times per week. Electrolytes stable. Potassium lev el is within normal. No evidence of metabolic acidosis. Continue renal diet and dialysis 3 times pe r week. 2.Diabetic foot infection. Continue vancomycin. Monitor vancomycin random level. 3.Hypertension. Continue blood pressure medication. 4.Diabetes mellitus with renal manifestation. Continue insulin. EB/MODL Voice ID: [id number] Report ID: [id number]
[2019-08-22] MEDS: IPRATROPIUM BROM 0.5MG/2.5ML IH SCH ×2 (02:38→08:11)
[2019-08-22] MEDS: ALBUTEROL 2.5 MG/3 ML NEB SOL IH SCH ×2 (02:38→08:11)
[2019-08-22 05:56] LABS: Absolute Lymphocytes (CBC) 0.8 K/uL (0.7-4.9); Basophils % 2.3 % (0-1.3); Lymphocytes % 16.7 % (15.3-44.8); MPV 7.4 fL (7.6-11.3); RBC Red Blood Cell Count 2.86 M/uL (4.33-5.43)
[2019-08-22 06:06] LABS: Magnesium 2.2 mg/dL (1.8-2.4); Potassium 3.8 mmol/L (3.5-5.1)
[2019-08-22] MEDS: INSULIN -REGULAR HUMAN 50 UNIT/0.5 ML ML SQ SCH ×2 (07:30→12:38)
[2019-08-22] MEDS: DOCUSATE NA 100 MG CAP PO SCH (08:31)
[2019-08-22] MEDS: LOSARTAN POTASSIUM 50 MG TABLET PO SCH (08:31)
[2019-08-22] MEDS: PANTOPRAZOLE 40MG TABLET PO SCH (08:31)
[2019-08-22] MEDS: SERTRALINE HCL 50 MG TAB PO SCH (08:31)
[2019-08-22] MEDS: JUVEN PACKET PO SCH (08:32)
[2019-08-22] MEDS: AMLODIPINE 5 MG TAB PO SCH (08:32)
[2019-08-22] MEDS: QUETIAPINE 25 MG TAB PO SCH (08:32)
[2019-08-22] MEDS: GLIMEPIRIDE 2 MG TABLET PO SCH (08:32)
[2019-08-22] MEDS: carvediloL 25 MG TAB PO SCH (08:32)
[2019-08-22 08:53] VITALS: O2SAT 97
[2019-08-22 13:40] VITALS: BP 149/69; TEMP 97.5
--- NOTE | 2019-08-22 19:01 | PN ---
Date of Progress Note: 08/22/2019 Subjective: Patient is doing well, still confused. Patient was admitted with osteomyelitis, status post below-knee amputation. Physical Examination: Vital Signs: When I saw the patient, blood pressure 149/69, pulse of 73, afebrile. Chest: Clear to auscultation. Heart: S1, S2. Systolic murmur. Abdomen: Soft, nontender. Extremities: Right below-knee amputation. Laboratory Data: H and H 8.6/26. Sodium 141, potassium of 3.8, bicarb 30, BUN 35, creatinine 4.3, c alcium of 8, magnesium 2.2. Medications: Current medications the patient is on include; glimepiride, carvedilol, amlodipine, Lev aquin. Assessment And Plan: 1.End-stage renal disease. We will continue the patient on dialysis Wednesday, Wednesday, Wednesday. Pat ient is going to need vancomycin. 2.Hypertension, controlled optimal. Continue current treatment. 3.Secondary hyperparathyroidism, stable. 4.Anemia of chronic kidney disease. Continue DERREK. 5.Osteomyelitis, status post below-knee amputation. We will continue antibiotics. We will follow u p with ID. We will set up antibiotics as outpatient with the dialysis. KWADWO/MARY Voice ID: [id number] Report ID: [id number]
--- NOTE | 2019-08-23 03:17 | DS ---
Date of Discharge: 08/22/2019 Final Diagnosis: Right BKA for necrotic heel ulcer with gangrene. Secondary Diagnoses: Peripheral vascular disease; hypertension; chronic obstructive pulmonary disease; end-stage renal disease, on dialysis. Hospital Course: Patient is a 68-year-old gentleman who has been in poor health for long duration. He has been in the hospital about 4 months out of last 6 months. Different hospitals around [place]. Came into this hospital with right foot gangrenous changes. I saw him on a tele video visit, and I found that he was confused, disoriented and looked septic to me, so I decided to admit him. After confirmation of what I said, we found that he had osteomyelitis of the right heel; necrotic ulcer, which was not improving on IV antibiotics. He has been on 6 weeks of daptomycin before all this happened for a different reason. Dr. Gutierrez performed a right BKA. Patient did really well. He has been stable for the last 5 days. We are waiting for Social oversight to discharge him with the help of insurance company. Insurance company failed to help this gentleman to place him in a fdc. I discussed with patient's and also explained to her that he would be really unhappy in fdc. It would be better if we could get him help at home, so we tried to get home health with PT with hospital bed with home dialysis he gets usually. Family will hire 2 hours of help to help at home. YOSELYN/MARY Voice ID: [id number] Report ID: [id number] ANAT
== END 2019-08-22 13:13 | disposition home health service (06) | DRG 853 ==
LOC: 2ND 14:51 → OBSVTOIN 08-09 15:42
PROVIDERS: ADMIT Internal Medicine; ATTEND Internal Medicine
PROC: 0KBV0ZZ Excision of Right Foot Muscle, Open Approach (ICD-10-PCS; 2019-08-09)
PROC: 5A1D70Z Performance of Urinary Filtration, Intermittent, Less than 6 Hours Per Day (ICD-10-PCS; 2019-08-09)
PROC: 0Y6H0Z1 Detachment at Right Lower Leg, High, Open Approach (ICD-10-PCS; principal; 2019-08-11 10:00)
DX: A41.89 Other specified sepsis (principal); N18.6 End stage renal disease; I12.0 Hypertensive chronic kidney disease with stage 5 chronic kidney disease or end stage renal disease; M86.8X7 Other osteomyelitis, ankle and foot; E87.3 Alkalosis; L97.419 Non-pressure chronic ulcer of right heel and midfoot with unspecified severity; N25.81 Secondary hyperparathyroidism of renal origin; E11.52 Type 2 diabetes mellitus with diabetic peripheral angiopathy with gangrene; I96 Gangrene, not elsewhere classified; E11.51 Type 2 diabetes mellitus with diabetic peripheral angiopathy without gangrene; E11.69 Type 2 diabetes mellitus with other specified complication; Z88.1 Allergy status to other antibiotic agents; Z88.5 Allergy status to narcotic agent; Z88.0 Allergy status to penicillin; Z86.14 Personal history of Methicillin resistant Staphylococcus aureus infection; Z79.899 Other long term (current) drug therapy; Z79.82 Long term (current) use of aspirin; Z79.4 Long term (current) use of insulin; Z99.2 Dependence on renal dialysis; E11.22 Type 2 diabetes mellitus with diabetic chronic kidney disease; D63.1 Anemia in chronic kidney disease; E87.6 Hypokalemia; E11.621 Type 2 diabetes mellitus with foot ulcer; B96.4 Proteus (mirabilis) (morganii) as the cause of diseases classified elsewhere; F03.90 Unspecified dementia, unspecified severity, without behavioral disturbance, psychotic disturbance, mood disturbance, and anxiety; E83.39 Other disorders of phosphorus metabolism; J44.9 Chronic obstructive pulmonary disease, unspecified
CPT/HCPCS: 36415; 71045; 80048; 80069; 80076; 80202; 82306; 82607; 82947; 83036; 83735; 84100; 84443; 85025; 85610; 85652; 85730; 86140; 87040; 87070; 87075; 87077; 87186; 87205; 88304; 88305; 88307; 88311; 90935; 97110; 97112; 97161; 97530; G0378; G0379; J0330; J0692; J1644; J1650; J2250; J2405; J2704; J3010; J3370; J3590; J7030; J7040; Q5105